=== PATIENT | female | born 1970 | race Caucasian/White ===

== ENCOUNTER 2025-02-05 18:33 | Inpatient (IN) | payer MEDICARE, MEDICAID, SELFPAY ==
--- NOTE | 2025-02-05 18:54 | ECG_ITS ---
Test Reason : med clearance Blood Pressure : */* mmHG Vent. Rate : 61 BPM Atrial Rate : 61 BPM P-R Int : 142 ms QRS Dur : 94 ms QT Int : 444 ms P-R-T Axes : 59 46 38 degrees QTcB Int : 446 ms Normal sinus rhythm Nonspecific ST abnormality Abnormal ECG No previous ECGs available Referred By: Magdalena Bowens Electronically Signed By: Jaiden Guaman
[2025-02-05 18:57] VITALS: BP 175/102; BMI 21.8
--- NOTE | 2025-02-05 19:09 | ED.PSYCH ---
HPI - Psych General Chief Complaint: Psychiatric Symptoms Stated Complaint: SI Time Seen by Provider: 02/05/25 19:07 History of Present Illness ED Provider: Ridge Clayton MD HPI Narrative: 54-year-old female she reports to me history of major depression, remote suicide attempt with morphine overdose intentional about 20 years ago, rheumatoid arthritis, immune deficiency. She said she drank alcohol today and she thinks her ?cousins called because they thought they were helping me ?. Denies suicidal thoughts now. Triage note reports the patient came in as a section 12 [address] by PD. She had drank alcohol. It was reported by family members that the patient plan to ?consumed bottles of morphine ?and ?jump off a jay ?. Related Data Home Medications ?Medication ?Instructions ?Recorded ?Confirmed cyclobenzaprine 5 mg tablet 5 mg PO BEDTIME 02/06/25 02/06/25 dextroamphetamine-amphetamine 30 1 tab PO BID 02/06/25 02/06/25 mg tablet gabapentin 300 mg capsule 300 mg PO BID 02/06/25 02/06/25 hydroxychloroquine 200 mg tablet 200 mg PO DAILY 02/06/25 02/06/25 loperamide 2 mg capsule 2 mg PO PRN Diarrhea 02/06/25 lumateperone 42 mg capsule 21 mg PO DAILY 02/06/25 02/06/25 (Caplyta) rizatriptan 10 mg tablet 10 mg PO PRN Migraine Headache 02/06/25 vilazodone 20 mg tablet 20 mg PO DAILY 02/06/25 02/06/25 Allergies Allergy/AdvReac Type Severity Reaction Status Date / Time bee pollen (BEE STINGS) Allergy Unknown UNKNOWN Verified 02/05/25 18:58 penicillin V Allergy Unknown hives Verified 02/05/25 18:58 Penicillins (PENICILLINS) Allergy Unknown UNKNOWN Verified 02/05/25 18:58 BEES Allergy Unknown Unknown Uncoded 02/05/25 18:58 Wellbutrin Allergy Unknown Unknown Uncoded 02/05/25 18:58 PMF Social History Social History (System 05/26/23 @ 11:43 by Rocio Aguillon) Household Members: None Housing: House Patient Tobacco Use Status: Current everyday Tobacco user Tobacco use type: Cigarette Cigarette Packs Per Day: 1 Cigarettes Per Day: 20.0 Smoked in Last 30 Days: Yes e-Cigarette/Vaping Use: Never Used Patient Interested in Nicotine Replacement: Yes Patient Given Instructions on How to Stop Smoking: Yes Date Education Initiated: 02/06/25 Second Hand Smoke Exposure: Yes Have you been hit, kicked, punched, or otherwise hurt by someone within the past year? If so, by whom?: No Do you feel safe in your current relationship?: No Is there a partner from a previous relationship who is making you feel unsafe now?: No Are you made to feel afraid or neglected: No Advance Directives: No Advance Directives Information Provided: No Do you have a plan to hurt others: No Plan Recently lost weight without trying: Yes How much weight loss: 2-13 pounds Eating poorly because of decreased appetite: Yes Nutrition screen score: 4 Nutrition Risks: Dental problems and Difficulty chewing Patient : No : No Poor oral hygiene: No Physical Exam Vital Signs: Vital Signs: Last Vital Signs Temp 96.5 F L 02/06/25 11:50 Pulse 68 02/06/25 11:50 Resp 20 02/06/25 11:50 BP 134/70 02/06/25 11:50 Pulse Ox 100 02/06/25 11:50 O2 Del Method Room Air 02/06/25 11:50 BMI result Body Mass Index 21.8 Const: Other: EXAM: Gen: Alert, awake, well appearing, well hydrated. Head: Atraumatic Eyes: Anicteric, Normal conjunctiva. ENT: Moist mucosa, no pallor. ? Neck: Supple. Skin: ?No observable rash or bruising on exposed or examined skin Respiratory: Breathing comfortably, No distress.Clear to auscultation bilaterally, symmetric chest expansion, No wheeze, rales, ronchi. Cardiovascular: Regular rate and rhythm. No murmurs or rub. Well perfused periphery, warm extremities. No edema. ? Abdominal: No focal tenderness. Soft, no objective distension. No palpable masses or obvious organomegaly. ?No guarding, no rebound tenderness or other peritoneal findings. : No flank tenderness. Neuro: Alert. Gross movement of all extremities intact. ? Psych: Calm. Cooperative. Denies SI to me. Acknowledges drinking alcohol today. Acknowledges a remote suicide attempt. Says she wants to go home with to her dog that she lives with and just go to sleep she has no plans to hurt herself at this time. MSK: No grossly visible deformity. Vital signs: See flowsheet Neuro: General: CN's II-XI intact bilaterally Course Reevaluation(s) Reevaluation #1: 21:24 February 05. Staff noted that the patient Reevaluation #2: Time: 09:14 Date: 02/06/25 Provider: Mohinder Mcclellan MD Patient in physician observation for psychiatric evaluation.? No acute events reported overnight. No current complaints. VS stable.? Patient is in bed search status/pending CARE team evaluation. Will continue to monitor. Time: 09:14 Reevaluation #3: 02/06/2025 11:48 patient will be admitted to the psych unit at [facility] this will end the physician observation status Time: 11:48 Medications Administered Generic Name Dose Route Start Last Admin Trade Name Freq PRN Reason Stop Dose Admin Acetaminophen 650 mg 02/06/25 11:55 02/06/25 14:02 Acetaminophen 325 Mg Tablet PO 650 mg Q6H PRN Administration Headache/Pain, Scale 1-10 Amphetamine/Dextroamphetamine 30 mg 02/06/25 14:15 02/06/25 14:15 Amphetamine Mixed Salts 10 Mg Tablet PO Not Given BID VARGAS Lorazepam 1 mg 02/06/25 11:55 02/06/25 14:03 Lorazepam 1 Mg Tablet PO 1 mg Q2H PRN Administration CIWA 8-11 Nicotine Polacrilex 2 mg 02/06/25 14:14 02/06/25 15:07 Nicotine Polacrilex Lozenge 2 Mg Lozenge BUCCAL 2 mg Q1H PRN Administration Nicotine Cravings Discontinued Medications Generic Name Dose Route Start Last Admin Trade Name Freq PRN Reason Stop Dose Admin Lorazepam 1 mg 02/05/25 18:54 02/05/25 19:17 Lorazepam 1 Mg Tablet PO 02/05/25 18:55 1 mg ONCE ONE Administration Midazolam HCl 5 mg 02/05/25 21:22 02/05/25 21:32 Midazolam Hcl 5 Mg/Ml Vial IM 02/05/25 21:23 5 mg ONCE ONE Administration Olanzapine 5 mg 02/05/25 21:22 02/05/25 21:33 Olanzapine 10 Mg Vial IM 02/05/25 21:23 5 mg ONCE ONE Administration Medical Decision Making Medical Decision Making MDM Narrative: Medical Decision Makin-year-old female brought in after verbalizing suicidal ideation while intoxicated. Section 12 by police. Patient has had a suicide attempt in the past and upon learning corroborating historical factors from family member who was present patient wrote a serious suicide note at home. For this reason section 12 continued here 12 a signed. No acute medical complaints. She is perhaps mildly intoxicated but initially was cooperative later began verbally escalating and arguing with staff. I wrote prn sedation medications if she needed this if she became physical with staff members but I was told by the end of my shift she did not require this. Preliminary Favored Differential Diagnosis: Drug-induced or alcohol-induced suicidal ideation or mood disorder, chronic depression, psychotic disorder, among additional considered etiologies Testing Interpreted Independently: ECG sinus rhythm rate 61 QTC 446. [place] baseline in lead 1 and 3 artifact. No acute ischemic changes. Radiology or Lab testing Results Reviewed: Labs reassuring non actionable Consults: Behavioral health care team social services technician. We discussed the case together. Independent Historians/External Chart Reviews: Not Applicable Social Determinants of Health Impacting MDM/Planning: Not Applicable Lab Data 02/05/25 19:32 02/05/25 19:32 Labs: Lab Results 02/05/25 02/05/25 02/05/25 Range/Units 19:32 19:46 19:47 WBC 4.9 (4.8-10.8) X10*3/uL RBC 4.60 (4.20-5.50) X10*6/uL Hgb 13.5 (12.0-16.0) g/dl Hct 39.1 (37.0-47.0) % MCV 85.0 (80.0-98.0) fL MCH 29.3 (27.0-33.0) pg MCHC 34.5 (31.0-35.0) g/dl RDW 11.9 (11.0-16.0) % Plt Count 237 (160-400) X10*3/uL MPV 9.6 (9.4-12.3) fL Immature Gran % (Auto) 0.2 (0.0-0.4) % Neut % (Auto) 49.0 (45-73) % Lymph % (Auto) 42.1 H (20-40) % [place] % (Auto) 6.0 (2-11) % Eos % (Auto) 1.9 (0-4) % Baso % (Auto) 0.8 (0-2) % Lymph # (Auto) 2.0 (1.2-4.9) X10*3/uL [place] # (Auto) 0.3 (0.1-1.2) X10*3/uL Eos # (Auto) 0.1 (0.0-0.4) X10*3/uL Baso # (Auto) 0.0 (0.0-0.2) X10*3/uL Abs Immat Gran (auto) 0.01 (0.00-0.03) X10*3/uL Absolute Neuts (auto) 2.4 (2.0-8.3) x10*3/uL Absolute Nucleated RBC 0.000 (0.0-0.012) X10*3/uL Nucleated RBC % (auto) 0.0 (0.0-0.2) /100WBC Sodium 141 (135-145) mmol/L Potassium 3.9 (3.3-5.1) mmol/L Chloride 108 (96-108) mmol/L Carbon Dioxide 21 L (22-29) mmol/L Anion Gap 16 (12-20) BUN 11 (9-16) mg/dL Creatinine 0.67 (0.5-1.4) mg/dL Estim Creat Clear Calc 88.7 Estimated GFR > 60 Random Glucose 86 (60-115) mg/dL Calcium 8.8 (8.4-10.2) mg/dL Total Bilirubin 0.2 (0.0-1.0) mg/dL AST 31 (5-31) U/L ALT 34 H (0-31) U/L Alkaline Phosphatase 109 (39-117) U/L Total Protein 7.4 (6.5-8.0) g/dL Albumin 4.4 (3.5-5.0) g/dL Urine Color Yellow Urine Appearance Clear Urine pH 6.5 (5.0-9.0) Ur Specific [place] <= 1.005 (1.005-1.025) Urine Protein Negative (Neg-Trace) mg/dL Urine Glucose (UA) Negative (Negative) mg/dL Urine Ketones Negative (Negative) mg/dL Urine Blood Negative (Negative) Urine Nitrite Negative (Negative) Ur Leukocyte Esterase Moderate (2+) H (Negative) Urine RBC 0-2 (0-2) /HPF Urine WBC 0-5 (0-5) /HPF Ur Squamous Epith Cells 0-2 (0-2) /HPF Urine Bacteria None Seen (None Seen) Hyaline Casts 0-2 (0-2) /LPF Urine Test NEGATIVE (NEGATIVE) Salicylates < 5.0 L (15-30) mg/dL Urine Opiates Screen Not Detected (Not Detect) Ur Buprenorphine Scrn Not Detected (Not Detect) ng/mL Ur Oxycodone Screen Not Detected (Not Detect) ng/mL Urine Methadone Screen Not Detected (Not Detect) ng/mL Urine Fentanyl Screen Not Detected (Not Detect) Acetaminophen < 3 (<30) mcg/mL Ur Barbiturates Screen Not Detected (Not Detect) Ur Phencyclidine Scrn Not Detected (Not Detect) Ur Amphetamines Screen Not Detected (Not Detect) U Benzodiazepines Scrn Not Detected (Not Detect) Urine Cocaine Screen Not Detected (Not Detect) U Marijuana (THC) Screen POSITIVE H (Not Detect) Ethyl Alcohol 135 mg/dL COVID-19 (MELE) Negative (Negative) COVID-19 Clin Com See Note Discharge Plan Discharge Clinical Impression: Suicidal ideation Patient Disposition: Admitted As Inpatient Interventions: [place]-Suicide Risk Severity Scale Last Done: 02/06/25 11:45 Discharge Date/Time: 02/06/25 11:49
[2025-02-05 19:40] LABS: MANUAL DIFF FLAG NO
[2025-02-05 19:42] LABS: Hematocrit 39.1 % (37.0-47.0); Hemoglobin 13.5 g/dl (12.0-16.0); Imm Gran Abs Auto 0.01 X10*3/uL (0.00-0.03); Imm Gran Pct Auto 0.2 % (0.0-0.4); Lymphocytes Absolute Auto 2.0 X10*3/uL (1.2-4.9); Mean Corpuscular HGB Conc 34.5 g/dl (31.0-35.0); Mean Corpuscular Hemoglobin 29.3 pg (27.0-33.0); Mean Corpuscular Volume 85.0 fL (80.0-98.0); NRBC Abs Auto 0.000 X10*3/uL (0.0-0.012); NRBC Pct Auto 0.0 /100WBC (0.0-0.2); Platelet Count 237 X10*3/uL (160-400); Red Blood Count 4.60 X10*6/uL (4.20-5.50); White Blood Count 4.9 X10*3/uL (4.8-10.8)
[2025-02-05 19:57] LABS: COVID-19 Test Negative (Negative); IDNOW Serial# 55D5AD1C
[2025-02-05 19:58] LABS: UPreg QC Valid YES
[2025-02-05 19:58] LABS: Appearance Urine Clear; Glucose Urine UA Negative (Negative); PH 6.5 (5.0-9.0); Specific Gravity - Urine <= 1.005 (1.005-1.025); UMIC TRIGGER UA YES
[2025-02-05 20:03] LABS: Alanine Aminotransferase 34 U/L (0-31); Albumin Level 4.4 g/dL (3.5-5.0); Alkaline Phosphatase 109 U/L (39-117); Anion Gap 16 (12-20); Aspartate Amino Transferase 31 U/L (5-31); Blood Urea Nitrogen 11 mg/dL (9-16); Calcium 8.8 mg/dL (8.4-10.2); Carbon Dioxide 21 mmol/L (22-29); Chloride 108 mmol/L (96-108); Creatinine Clr Calc Pharmacy 88.7; Estimated Glomerular Filt Rate > 60; Potassium 3.9 mmol/L (3.3-5.1); Sodium 141 mmol/L (135-145); Total Protein 7.4 g/dL (6.5-8.0)
[2025-02-05 20:05] LABS: Acetaminophen LAB < 3 mcg/mL (<30); Salicylate < 5.0 mg/dL (15-30)
[2025-02-05 20:06] LABS: Cannabinoid Screen Urine POSITIVE (Not Detect)
[2025-02-05] MEDS: OLANZapine 10 MG VIAL 5 MG IM (21:33)
--- NOTE | 2025-02-05 23:35 | PC.NURSE ---
Took over care from MARGO Flores, pt sleeping at this time.
--- NOTE | 2025-02-05 23:36 | PC.NURSE ---
unable to complete [place] scale and psychiatric evaluation at this time due to pt sleeping.
[2025-02-06 03:09] VITALS: BP 94/65; PULSE 66; RESP 13; TEMP 36.6; O2SAT 95
[2025-02-06 08:34] VITALS: BP 149/99; PULSE 97; RESP 18; TEMP 36.6; O2SAT 97
--- NOTE | 2025-02-06 08:35 | MHC.EDTECH ---
Patient upset due to being here, she said she has medical issues that need to be addressed and no one would listen to her
--- NOTE | 2025-02-06 10:39 | PC.NURSE ---
Pt approached desk stating is anyone going to help me or am I just going to sit here. RN offered pt supplies to perform ADLs, offered to call her pharmacy to verify meds. pt got agitated, stating she wants her own toothbrush and her dog, stating what am I supposed to wash myself with, my magic hands? I can't use that soap, I have autoimmune problems and walked away from desk.
--- NOTE | 2025-02-06 11:18 | PC.NURSE ---
Nursing report to Alvin on M3
[2025-02-06 11:50] VITALS: BP 134/70; PULSE 68; RESP 20; TEMP 35.8; O2SAT 100
[2025-02-06 11:58] VITALS: BMI 21.7
--- NOTE | 2025-02-06 12:09 | HO.PSYADMNOT ---
[facility] Date of Service: 02/06/25 Chief Complaint: SI Sources of Information: patient interviewed, chart reviewed and crisis/core team assessment reviewed HPI Subjective Notes: [place] Warning and Section 12B Narrative: Patient is a 54-year-old female with history of MDD, PTSD and ADHD who was brought in via ambulance from home on a section 12 due to making suicidal statements secondary to increased depression while being intoxicated. Per crisis report, patient reportedly left a suicide note on her table. The note reportedly stated, the patient is endorsing suicidal thoughts with a plan to drink alcohol, consumed bottles of morphine, or jump off a jay. Patient adamantly denied SI/plan/or intent and states, that was a journal from years ago from when I tried to kill myself with morphine . Patient reports that 20 years ago, attempted to kill myself with morphine . Patient reportedly drank alcohol, which she typically does not do and destroyed her garden and ripped down decorations off her thomas. patient reports she has been depressed and stated, I'm very alone, my mom not too long ago. I just had a bad day and I want to go home . Patient reports her mood is very sad but not suicidal . Patient adamantly denies SI/HI throughout assessment. Collateral obtained from pt's cousin, Alvin, who reports patient has been increasingly depressed over the last week. He reports, pt does not usually drink and was out of character for her . He reports pt made statements of dancing off a jay and stating, I can't fight anymore, I am done with life . During admission assessment, patient presents alert and oriented x3. Calm and cooperative. Patient reports feeling depressed; patient stated, I'm having a hard time with my mom passing a month ago. I was calling my outpatient therapist trying to get additional help but no one called me back. I may have said stupid things because I was drinking but I'm not suicidal . Patient requesting discharged home. Patient denies writing a suicide note. Patient stated, I was taking out journals because my psychiatrist said I should try EMDR therapy. I was going through old journals and old traumas. I felt frustrated and sad so I destroyed my garden and ripped down the decorations . pt continues to adamantly deny SI, plan or intent. patient stated, I'm hoping that I won't feel this way a week from now or a month from now . denies SI/HI/VH/AH. Collateral obtained from outpatient psychiatrist, Dr. Morales, who reports he recently saw pt a month ago and has an appointment set up with her next week. He states he does not feel she is high risk for self harm and plans to follow up with her after discharge. Collateral also obtained from patient's cousin, Alvin, who reports patient lives with him and his . He reports patient does not have a hx of SIB or making suicidal statements. Past Psychiatric History: denies hx of inpatient psychiatric hospitalizations. denies SIB. hx of 1 prior SA 20 years ago via OD on medication. Psychiatrist: Dr. Morales Therapist: Yoly Medical Evaluation Reviewed: Yes [facility] Family History: Denies Social History: Lives with an in a 2 family home. . No kids. Disability. Some college. Substance History: Marijuana use daily. Denies all other substance use. Trauma History: Yes Diagnostics Vital Signs (24Hr): Vital Signs - 24 hr 02/06/25 03:09 02/06/25 08:34 02/06/25 11:50 Temperature 97.8 F 97.8 F 96.5 F L Pulse Rate 66 97 68 Respiratory Rate 13 18 20 Blood Pressure 94/65 149/99 H 134/70 Pulse Oximetry 95 97 100 Oxygen Delivery Method Room Air Room Air Room Air BMI result Body Mass Index 21.7 Labs 02/05/25 19:32 02/05/25 19:32 Labs: Laboratory Results - last 48 hr 02/05/25 02/05/25 02/05/25 19:32 19:46 19:47 WBC 4.9 RBC 4.60 Hgb 13.5 Hct 39.1 MCV 85.0 MCH 29.3 MCHC 34.5 RDW 11.9 Plt Count 237 MPV 9.6 Immature Gran % (Auto) 0.2 Neut % (Auto) 49.0 Lymph % (Auto) 42.1 H [place] % (Auto) 6.0 Eos % (Auto) 1.9 Baso % (Auto) 0.8 Lymph # (Auto) 2.0 [place] # (Auto) 0.3 Eos # (Auto) 0.1 Baso # (Auto) 0.0 Abs Immat Gran (auto) 0.01 Absolute Neuts (auto) 2.4 Absolute Nucleated RBC 0.000 Nucleated RBC % (auto) 0.0 Sodium 141 Potassium 3.9 Chloride 108 Carbon Dioxide 21 L Anion Gap 16 BUN 11 Creatinine 0.67 Estim Creat Clear Calc 88.7 Estimated GFR > 60 Random Glucose 86 Calcium 8.8 Total Bilirubin 0.2 AST 31 ALT 34 H Alkaline Phosphatase 109 Total Protein 7.4 Albumin 4.4 Urine Color Yellow Urine Appearance Clear Urine pH 6.5 Ur Specific [place] <= 1.005 Urine Protein Negative Urine Glucose (UA) Negative Urine Ketones Negative Urine Blood Negative Urine Nitrite Negative Ur Leukocyte Esterase Moderate (2+) H Urine RBC 0-2 Urine WBC 0-5 Ur Squamous Epith Cells 0-2 Urine Bacteria None Seen Hyaline Casts 0-2 Urine Test NEGATIVE Salicylates < 5.0 L Urine Opiates Screen Not Detected Ur Buprenorphine Scrn Not Detected Ur Oxycodone Screen Not Detected Urine Methadone Screen Not Detected Urine Fentanyl Screen Not Detected Acetaminophen < 3 Ur Barbiturates Screen Not Detected Ur Phencyclidine Scrn Not Detected Ur Amphetamines Screen Not Detected U Benzodiazepines Scrn Not Detected Urine Cocaine Screen Not Detected U Marijuana (THC) Screen POSITIVE H Ethyl Alcohol 135 COVID-19 (MELE) Negative COVID-19 Clin Com See Note Meds/Allergies Meds Home Medications ?Medication ?Instructions ?Recorded ?Confirmed ?Type cyclobenzaprine 5 mg tablet 5 mg PO BEDTIME 02/06/25 02/06/25 History dextroamphetamine-amphetamine 30 1 tab PO BID 02/06/25 02/06/25 History mg tablet gabapentin 300 mg capsule 300 mg PO BID 02/06/25 02/06/25 History hydroxychloroquine 200 mg tablet 200 mg PO DAILY 02/06/25 02/06/25 History loperamide 2 mg capsule 2 mg PO PRN Diarrhea 02/06/25 History lumateperone 42 mg capsule 21 mg PO DAILY 02/06/25 02/06/25 History (Caplyta) rizatriptan 10 mg tablet 10 mg PO PRN Migraine Headache 02/06/25 History vilazodone 20 mg tablet 20 mg PO DAILY 02/06/25 02/06/25 History Allergies Allergies Allergy/AdvReac Type Severity Reaction Status Date / Time bee pollen (BEE STINGS) Allergy Unknown UNKNOWN Verified 02/05/25 18:58 penicillin V Allergy Unknown hives Verified 02/05/25 18:58 Penicillins (PENICILLINS) Allergy Unknown UNKNOWN Verified 02/05/25 18:58 BEES Allergy Unknown Unknown Uncoded 02/05/25 18:58 Wellbutrin Allergy Unknown Unknown Uncoded 02/05/25 18:58 Mental Status Exam Mental Status Exam Narrative: Pt is alert and oriented; behavior is cooperative and calm; dressed in casual attire; mood is described as depressed ; eye contact appropriate; Speech is normal rate, volume and not pressured; thought process is organized; Thought content is on discharge; denies SI/HI/VH/AH. Assessment & Plan Assessment & Plan (1) MDD (major depressive disorder), recurrent episode: Status: Acute Code(s): F33.9 - Major depressive disorder, recurrent, unspecified (2) PTSD (post-traumatic stress disorder): Status: Acute Code(s): F43.10 - Post-traumatic stress disorder, unspecified (3) ADHD (attention deficit hyperactivity disorder): Status: Acute Code(s): F90.9 - Attention-deficit hyperactivity disorder, unspecified type Plan Patient is a 54-year-old female with history of MDD, PTSD and ADHD who was brought in via ambulance from home on a section 12 due to making suicidal statements secondary to increased depression while being intoxicated. Plan: 12B 15 minute safety checks Continue home medications obtain collateral encourage groups discharge planning Patient educated on: diagnosis and medication risk/benefits Reason for continued inpatient stay Substantial Risk for: med/psych decompensation Statement Statement: I have reviewed the history and physical and performed a pertinent examination on my patient. No changes have occurred unless specified. If the History and Physical was not performed prior to admission, the Hospitalist's service will be consulted for completing the admission physical. Time Spent With Patient Time: Total time managing care of this patient today _60___ minutes.
[2025-02-06] MEDS: Nicotine Polacrilex Lozenge 2 MG LOZENGE BUCCAL ×2 (15:07→17:45)
--- NOTE | 2025-02-06 16:46 | PC.ADMIT ---
This 54 y.o. woman was referred by [facility] Care Team with Dx: Depression, unspecified. Arrived on unit on a Section 12A at 1215 and placed on 15 min safety checks. Precipitating events to admission: Brought in to [facility] by ambulance on a Section 12 due to SI statements and leaving a reported suicide note on table at home which was found by cousin who resides with her. Endorsed plan in note to drink alcohol, consume bottles of morphine and walk off a jay. Prior SA with use of Morphine 20 yrs ago. Denied SI while in ED. Increase in agitation noted while in ED requiring medication restraint Versed/Olanzapine IM after receiving Ativan po previously. Tox screen positive for marijuana, etoh 135 at 1932 02/05/25. Reports use of edible marijuana nightly, recent use of etoh. Denies craving substances or s/sx withdrawal. CIWA 8 at 1400, Ativan 1mg po given which allowed pt to rest in bed. CIWA 5 on following assessment. Agitation noted during admission process. Stated she did not know why she was here and we were causing her more harm then good. Stated she had not received her meds, had not been eating, and was not able to attend properly to hygiene while in ED. Declined shower/toothpaste/toothbrush offered stating she did not want to shower here or utilize hospital products. Completed admission process stating she wanted to do whatever we wanted so she would be able to leave soon. Calmed after meeting with prescriber, Rima Chinchilla. Declined CV, legal status at present time Section 12B. Continues to deny SI, denies HI, AH/VH. Rated anxiety #10 on admission, stated depression had decreased since yesterday rating #5 on scale 1-10(10 worse) on admission.
[2025-02-06 20:00] VITALS: BP 119/61; PULSE 70; RESP 16; TEMP 35.6; O2SAT 99
--- NOTE | 2025-02-06 23:13 | PC.NURSE ---
patient is refusing to have CIWA assessments at night ''do not wake me, if I'm up then fine. I had a drink that's it''
--- NOTE | 2025-02-07 00:06 | PC.NURSE ---
CIWA-patient is asleep and refused earlier to be woken for assessment. visualized. no distress noted. respirations even and unlabored. no diaphoresis assessed.
[2025-02-07 07:24] VITALS: BP 115/66; PULSE 67; RESP 18; TEMP 36.1; O2SAT 98
[2025-02-07] MEDS: Amphetamine Mixed Salts 10 MG TABLET 30 MG PO (08:16)
[2025-02-07 08:20] LABS: Hemoglobin A1C 138.3255 umol/L; Total Hemoglobin (HGBA1C) 3647.9173 umol/L
[2025-02-07] MEDS: Nicotine Polacrilex Lozenge 2 MG LOZENGE BUCCAL ×3 (08:21→11:06)
[2025-02-07 08:22] LABS: Alanine Aminotransferase 30 U/L (0-31); Albumin Level 4.4 g/dL (3.5-5.0); Alkaline Phosphatase 113 U/L (39-117); Anion Gap 10 (12-20); Aspartate Amino Transferase 28 U/L (5-31); Blood Urea Nitrogen 13 mg/dL (9-16); Calcium 9.3 mg/dL (8.4-10.2); Carbon Dioxide 29 mmol/L (22-29); Chloride 105 mmol/L (96-108); Cholesterol 203 mg/dL (<200); Creatinine Clr Calc Pharmacy 79.3; Estimated Glomerular Filt Rate > 60; HDL Cholesterol 63 mg/dL (>40); Potassium 3.7 mmol/L (3.3-5.1); Sodium 140 mmol/L (135-145); Total Protein 7.3 g/dL (6.5-8.0); Triglycerides 94 mg/dL (<150)
--- NOTE | 2025-02-07 09:52 | PM.PSYDC ---
DS: Providers Provider Date of Service: 02/07/25 Date of admission: 02/06/25 10:06 Date of discharge: 02/07/25 Primary care physician: Unknown Physician Admitting clinician: Rima Chinchilla Attending physician on admission: Niels Hayes Attending physician on discharge: Niels Hayes Discharging clinician: Rima Chinchilla DS: Diagnosis Discharge Diagnosis (1) MDD (major depressive disorder), recurrent episode: Status: Acute (2) PTSD (post-traumatic stress disorder): Status: Acute (3) ADHD (attention deficit hyperactivity disorder): Status: Acute DS: Medications Discharge Medications Home Medications: Home Medications ?Medication ?Instructions ?Recorded ?Confirmed cyclobenzaprine 5 mg tablet 5 mg PO BEDTIME 02/06/25 02/06/25 dextroamphetamine-amphetamine 30 1 tab PO BID 02/06/25 02/06/25 mg tablet gabapentin 300 mg capsule 300 mg PO BID 02/06/25 02/06/25 hydroxychloroquine 200 mg tablet 200 mg PO DAILY 02/06/25 02/06/25 loperamide 2 mg capsule 2 mg PO PRN Diarrhea 02/06/25 lumateperone 42 mg capsule 21 mg PO DAILY 02/06/25 02/06/25 (Caplyta) rizatriptan 10 mg tablet 10 mg PO PRN Migraine Headache 02/06/25 vilazodone 20 mg tablet 20 mg PO DAILY 02/06/25 02/06/25 Mental Status Exam Mental Status Exam Narrative: Pt is alert and oriented; behavior is cooperative, friendly and calm; dressed in casual attire; mood is described as good ; eye contact appropriate; Speech is normal rate, volume and not pressured; thought process is organized and future oriented; Thought content is on tx; denies SI/HI/VH/AH. Data Data Completed and Pending Completed studies during hospitalization [Text1]: 02/05/25 02/05/25 02/05/25 19:32 19:46 19:47 WBC 4.9 RBC 4.60 Hgb 13.5 Hct 39.1 MCV 85.0 MCH 29.3 MCHC 34.5 RDW 11.9 Plt Count 237 MPV 9.6 Immature Gran % (Auto) 0.2 Neut % (Auto) 49.0 Lymph % (Auto) 42.1 H Wise % (Auto) 6.0 Eos % (Auto) 1.9 Baso % (Auto) 0.8 Lymph # (Auto) 2.0 Wise # (Auto) 0.3 Eos # (Auto) 0.1 Baso # (Auto) 0.0 Abs Immat Gran (auto) 0.01 Absolute Neuts (auto) 2.4 Absolute Nucleated RBC 0.000 Nucleated RBC % (auto) 0.0 Sodium 141 Potassium 3.9 Chloride 108 Carbon Dioxide 21 L Anion Gap 16 BUN 11 Creatinine 0.67 Estim Creat Clear Calc 88.7 Estimated GFR > 60 Random Glucose 86 Estimat Average Glucose Hemoglobin A1c % Calcium 8.8 Total Bilirubin 0.2 AST 31 ALT 34 H Alkaline Phosphatase 109 Total Protein 7.4 Albumin 4.4 Triglycerides Cholesterol LDL Cholesterol, Calc HDL Cholesterol Urine Color Yellow Urine Appearance Clear Urine pH 6.5 Ur Specific Newcomb <= 1.005 Urine Protein Negative Urine Glucose (UA) Negative Urine Ketones Negative Urine Blood Negative Urine Nitrite Negative Ur Leukocyte Esterase Moderate (2+) H Urine RBC 0-2 Urine WBC 0-5 Ur Squamous Epith Cells 0-2 Urine Bacteria None Seen Hyaline Casts 0-2 Urine Test NEGATIVE Salicylates < 5.0 L Urine Opiates Screen Not Detected Ur Buprenorphine Scrn Not Detected Ur Oxycodone Screen Not Detected Urine Methadone Screen Not Detected Urine Fentanyl Screen Not Detected Acetaminophen < 3 Ur Barbiturates Screen Not Detected Ur Phencyclidine Scrn Not Detected Ur Amphetamines Screen Not Detected U Benzodiazepines Scrn Not Detected Urine Cocaine Screen Not Detected U Marijuana (THC) Screen POSITIVE H Ethyl Alcohol 135 COVID-19 ([facility]) Negative COVID-19 Clin Com See Note 02/07/25 07:54 WBC RBC Hgb Hct MCV MCH MCHC RDW Plt Count MPV Immature Gran % (Auto) Neut % (Auto) Lymph % (Auto) Wise % (Auto) Eos % (Auto) Baso % (Auto) Lymph # (Auto) Wise # (Auto) Eos # (Auto) Baso # (Auto) Abs Immat Gran (auto) Absolute Neuts (auto) Absolute Nucleated RBC Nucleated RBC % (auto) Sodium 140 Potassium 3.7 Chloride 105 Carbon Dioxide 29 Anion Gap 10 L BUN 13 Creatinine 0.75 Estim Creat Clear Calc 79.3 Estimated GFR > 60 Random Glucose 98 Estimat Average Glucose 114 Hemoglobin A1c % 5.6 Calcium 9.3 Total Bilirubin 0.3 AST 28 ALT 30 Alkaline Phosphatase 113 Total Protein 7.3 Albumin 4.4 Triglycerides 94 Cholesterol 203 H LDL Cholesterol, Calc 122 H HDL Cholesterol 63 Urine Color Urine Appearance Urine pH Ur Specific Newcomb Urine Protein Urine Glucose (UA) Urine Ketones Urine Blood Urine Nitrite Ur Leukocyte Esterase Urine RBC Urine WBC Ur Squamous Epith Cells Urine Bacteria Hyaline Casts Urine Test Salicylates Urine Opiates Screen Ur Buprenorphine Scrn Ur Oxycodone Screen Urine Methadone Screen Urine Fentanyl Screen Acetaminophen Ur Barbiturates Screen Ur Phencyclidine Scrn Ur Amphetamines Screen U Benzodiazepines Scrn Urine Cocaine Screen U Marijuana (THC) Screen Ethyl Alcohol COVID-19 ([facility]) COVID-19 Clin Com DS: Summary Hospital Course Hospital Course: Patient is a 54-year-old female with history of MDD, PTSD and ADHD who was brought in via ambulance from home on a [address] due to making suicidal statements secondary to increased depression while being intoxicated. Per crisis report, patient reportedly left a suicide note on her table. The note reportedly stated, the patient is endorsing suicidal thoughts with a plan to drink alcohol, consumed bottles of morphine, or jump off a jay. Patient adamantly denied SI/plan/or intent and states, that was a journal from years ago from when I tried to kill myself with morphine . Patient reports that 20 years ago, attempted to kill myself with morphine . Patient reportedly drank alcohol, which she typically does not do and destroyed her garden and ripped down decorations off her thomas. patient reports she has been depressed and stated, I'm very alone, my mom not too long ago. I just had a bad day and I want to go home . Patient reports her mood is very sad but not suicidal . Patient adamantly denies SI/HI throughout assessment. Collateral obtained from pt's cousin, Alvin, who reports patient has been increasingly depressed over the last week. He reports, pt does not usually drink and was out of character for her . He reports pt made statements of dancing off a jay and stating, I can't fight anymore, I am done with life . During admission assessment, patient presents alert and oriented x3. Calm and cooperative. Patient reports feeling depressed; patient stated, I'm having a hard time with my mom passing a month ago. I was calling my outpatient therapist trying to get additional help but no one called me back. I may have said stupid things because I was drinking but I'm not suicidal . Patient requesting discharged home. Patient denies writing a suicide note. Patient stated, I was taking out journals because my psychiatrist said I should try EMDR therapy. I was going through old journals and old traumas. I felt frustrated and sad so I destroyed my garden and ripped down the decorations . pt continues to adamantly deny SI, plan or intent. patient stated, I'm hoping that I won't feel this way a week from now or a month from now . denies SI/HI/VH/AH. Collateral obtained from outpatient psychiatrist, Dr. Morales, who reports he recently saw pt a month ago and has an appointment set up with her next week. He states he does not feel she is high risk for self harm and plans to follow up with her after discharge. Collateral also obtained from patient's cousin, Alvin, who reports patient lives with him and his . He reports patient does not have a hx of SIB or making suicidal statements. Plan: 12B 15 minute safety checks Continue home medications obtain collateral encourage groups discharge planning Patient continues focused on discharge. patient future oriented and hopeful; pt stated, I made a stupid mistake getting drunk. I plan on seeing my psychiatrist next week and continuing to see my therapist. I want to get in touch with a program in [place] that focuses on trauma . Patient adamately denies SI/HI/VH/AH. Status at Discharge Cognitive/behavioral status at discharge: Patient has insight and demonstrates good judgment in terms of wanting to pursue treatment. Patient has a safety plan that includes presenting to the closest ER or calling 911 if feeling unsafe. Functional status at discharge: independent ambulation Overall status at discharge: patient is back to baseline Time Spent with Patient Time attestation: Total time managing care of this patient today _20___ minutes. Time spent: Less than 30 minutes Discharge Plan Discharge Anticipated Discharge Date/Time: 02/07/25 12:00 Patient Disposition: Home, Self-Care Discharge Diagnosis: MDD, PTSD, ADHD Referrals: Dr. Moctezuma ([facility]) [Other] - 1 Week Referral Note: Follow up with outpatient provider. [facility] [Provider Group] - 1 Week Discharge Medications: Continued gabapentin 300 mg capsule 300 mg PO BID loperamide 2 mg capsule 2 mg PO PRN (Reason: Diarrhea) rizatriptan 10 mg tablet 10 mg PO PRN (Reason: Migraine Headache) dextroamphetamine-amphetamine 30 mg tablet 1 tab PO BID Patient Comments: first thing in the morning, second dose 11-12 hydroxychloroquine 200 mg tablet 200 mg PO DAILY cyclobenzaprine 5 mg tablet 5 mg PO BEDTIME vilazodone 20 mg tablet 20 mg PO DAILY Caplyta 42 mg capsule 21 mg PO DAILY Patient Comments: 42mg did not work well, taking 21mg instead Discharge Orders: Discharge Order (Routine); Ordered 02/07/25 Ordered By: Rima Chinchilla Diet: Regular diet Activity on Discharge: As tolerated Stand Alone Forms: Patient Portal Discharge page, Community Support Print Language: Malay Care Plan Goals: Maintain mood and safe behaviors Take medications as prescribed Practice coping skills Continue with outpatient providers and reach out to them as needed Health Concerns: Mood stability and behaviors Plan of Treatment: Follow up with your PCP, psychiatric provider and other outpatient providers regarding above concerns Take medications as prescribed Assessment: Patient has insight and demonstrates good judgment in terms of wanting to pursue treatment. Patient has a safety plan that includes presenting to the closest ER or calling 911 if feeling unsafe. Discharge Date/Time: 02/07/25 11:58
== END 2025-02-07 11:58 | disposition home or self-care (01) | DRG 885 ==
LOC: HO.ED 22:50 → HO.PADLT16 02-06 10:35
PROVIDERS: Physician Assistant Medical; Admitting Provider Registered Nurse; Emergency Provider Emergency Medicine; Responsible Provider Registered Nurse; Visit Provider Psychiatry & Neurology Psychiatry
DX: F33.9 Major depressive disorder, recurrent, unspecified (principal); R45.851 Suicidal ideations; F17.210 Nicotine dependence, cigarettes, uncomplicated; F90.9 Attention-deficit hyperactivity disorder, unspecified type; F43.10 Post-traumatic stress disorder, unspecified; Z71.6 Tobacco abuse counseling; Y90.6 Blood alcohol level of 120-199 mg/100 ml; Z91.51 Personal history of suicidal behavior; Z20.822 Contact with and (suspected) exposure to COVID-19; Z79.899 Other long term (current) drug therapy
CPT/HCPCS: 36415; 80053; 80061; 80143; 80179; 80307; 81001; 81025; 83036; 85025; 87635; 93005; 99285; J2250; J2359; S9485

== ENCOUNTER → 2025-02-05 18:54 | Outpatient (BNV) | payer MEDICARE, MEDICAID, SELFPAY | PROVIDERS: Admitting Provider Registered Nurse; Emergency Provider Emergency Medicine; Responsible Provider Registered Nurse; Visit Provider Internal Medicine Cardiovascular Disease | DX: R94.31 Abnormal electrocardiogram [ECG] [EKG] (principal); Z13.6 Encounter for screening for cardiovascular disorders | CPT/HCPCS: 93010 ==

== ENCOUNTER → 2025-02-06 10:06 | Outpatient (BNV) | payer MEDICARE, MEDICAID, SELFPAY | PROVIDERS: Admitting Provider Registered Nurse; Emergency Provider Emergency Medicine; Responsible Provider Registered Nurse; Visit Provider Registered Nurse | DX: F33.2 Major depressive disorder, recurrent severe without psychotic features (principal); F43.11 Post-traumatic stress disorder, acute; F90.9 Attention-deficit hyperactivity disorder, unspecified type | CPT/HCPCS: 90792; 99238 ==

== ENCOUNTER 2025-04-28 13:46 | Outpatient (AMB) | payer MEDICARE, MEDICAID, SELFPAY ==
--- OUTSIDE RECORDS SUMMARY | 2024-05-21 05:00 | XMS_ITS ---
Author Organization [facility] Address [address] [place] [address] Care Team Providers Care Police Department Secretary Name Role Phone Carmen Bliss Primary Care Provider Migration, Provider Unavailable Unavailable REASON FOR VISIT [facility] [place] Encounters Encounter Location Date Provider Diagnosis [facility] [address] [place] [address] 05/21/2024 Provider Migration Plan Of Treatment No Information Progress Notes * Vannessa THAPA MDOB:[birth year] (54 yo F)Acc No.[id number]:05/21/2024 Patient: Jaylin Vannessa MONET :1970 A ge:53 Y S ex:Female Address:[facility] [address] [facility] [address] Subjective: * Chief Complaints: * E MR-Adama * Medical History: * Surgical History: * Hospitalization/Major Diagno stic Procedure: * Medications: Objective: * Vitals: * Physical Examination: Assessment: Plan: * Treatment: * Procedure Codes: * * Date:
--- OUTSIDE RECORDS SUMMARY | 2024-05-22 05:00 | XMS_ITS ---
Author Organization [facility] Address [address] [place] [address] Care Team Providers Care Yeast Washer Name Role Phone Carmen Bliss Primary Care Provider Migration, Provider Unavailable Unavailable REASON FOR VISIT [facility] [place] Encounter Location Date Provider Diagnosis [facility] [address] [place] [address] 05/22/2024 Provider Migration Plan Of Treatment No Information Progress Notes * Vannessa THAPA MDOB:[birth year] (54 yo F)Acc No.[id number]:05/22/2024 Patient: Jaylin Vannessa MONET :1970 A ge:53 Y S ex:Female Address:[facility] [address] [facility] [address] Subjective: * Chief Complaints: * E MR-Adama * Medical History: * Surgical History: * Hospitalization/Major Diagno stic Procedure: * Medications: Objective: * Vitals: * Physical Examination: Assessment: Plan: * Treatment: * Procedure Codes: * * Date:
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
[2025-04-28 13:54] VITALS: BP 123/70; PULSE 91; RESP 16; TEMP 37.1; O2SAT 96; BMI 21.7
--- OUTSIDE RECORDS SUMMARY | 2025-04-28 14:56 | XMS_ITS | Patient Health Record ---
Author Organization [facility] Address [address] [place] [address] Care Team Providers Care Senior Information Security Consultant Name Role Phone Carmen Bliss Primary Care Provider Migration, Provider Unavailable Unavailable Reason For Referral No Information Encounters Encounter Location Date Provider Diagnosis [facility] [address] [place] [address] 05/21/2024 Provider Migration [facility] [address] [place] [address] 05/22/2024 Provider Migration Plan Of Treatment No Information
--- OUTSIDE RECORDS SUMMARY | 2025-04-28 14:56 | XMS_ITS | Patient Health Record ---
Author Organization [facility] Address [address] [address] [place], [place] [id number] Support Name Relationship Address Phone GRACIELA THAPA Guarantor Unknown [phone] Reason For Referral No Information Plan Of Treatment No Information Insurance Providers Payer Name Payer Address Payer Phone Subscriber Number Group Number Insured Name Patient Relationship to Insured Coverage Start Date Coverage End Date A[employer] PPO [address] [address] [place] [address] [id number] GRACIELA THAPA Self - patient is the insured 2006
--- OUTSIDE RECORDS SUMMARY | 2025-04-28 14:56 | XMS_ITS | Encounter Summary ---
Author Organization [facility] Address [address] [place] [address] Care Team Providers Care Door Closer Name Role Phone Kesha Lopez MD Primary Care Provider Encounter Details Date Type Department Care Team (Late st Contact Info) Description 09/14/2024 Scanned Document [facility] [address] [place] [address] [address] [place] [address] Kesha Lopez MD [address] [place] [address] [address] [place] [address] Social History Tobacco Use Types Packs/Day Years Used Date Smoking Tobacco: Former Cigarettes S tarted: 1990 Smokeless Tobacco: Never Alcohol Use Standard Drinks/Week Comments Not Asked 0 (1 standard drink = 0.6 oz pur e alcohol) ocassionally PHQ-2 Answer Date Recorded PHQ-2 Total Score 2 06/22/2024 Comments Unknown Sex and Gender Information Value Date Recorded Sex Assigned at Not on file Legal Sex Female 2:03 PM EST Gender Identity Not on file Sexual Orientation Not on file documented as of this encounter Plan of Treatment Not on file documented as of this encounter Visit Diagnoses Not on filedocumented in this encounter Care Teams Door Closer Relationship Specialty Start Date End Date Kesha Lopez MD [address] [place] [address] [address] [place] [address] PCP - General Internal Medicine 06/22/24 documented as of this encounter
--- OUTSIDE RECORDS SUMMARY | 2025-04-28 14:56 | XMS_ITS | Encounter Summary ---
Author Organization [facility] Address [address] [place] [address] Care Team Providers Care Gravel Machine Operator Name Role Phone Kesha Lopez MD Primary Care Provider Encounter Details Date Type Department Care Team (Late st Contact Info) Description 07/14/2024 Scanned Document [facility] [address] [place] [address] [address] [place] [address] Kesha Lopez MD [address] [place] [address] [address] [place] [address] Social History Tobacco Use Types Packs/Day Years [...] on filedocumented in this encounter Care Teams Gravel Machine Operator Relationship Specialty Start Date End Date Kesha Lopez MD [address] [place] [address] [address] [place] [address] PCP - General Internal Medicine 06/22/24 documented as of this encounter
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
--- OUTSIDE RECORDS SUMMARY | 2025-04-28 14:57 | XMS_ITS | Patient Health Record ---
Author Organization [facility] Address [address] [place] [address] Care Team Providers Care Sales Representative Electric Service Name Role Phone Mateus Deleon Unavailable [phone] Allergies Allergen (clinical drug ingredient) Drug/Non Drug Allergy documented on EMR Reaction Allergy Type Onset Date Status penicillin anaphylaxis Drug Allergy Acti ve Wellbutrin seizure Drug Allergy Active Reason For Referral No Information Medications Medication SIG (Take, Route, Frequency, Duration) Notes Start Date End Date Status Codeine Phosphate-Promethazine HCl 10 mg-6.25 mg/5 mL 5 ml orally Q 4-6 hours, PRN; Duration: 10 day(s) 08/07/2013 Active Ventolin HFA CFC free 90 mcg/inh 2 puff(s) inhaled 4 times a day; Duration: 30 day(s) 08/07/2013 Activ e CeleBREX Active Adderall Active Problems Problem Type SNOMED Code ICD Code Onset Dates Problem Status W/U Status Risk Notes Problem Ovarian failure (861926097) Ovarian Failure NEC (256.39) Active confirmed Problem Mixed anxiety and depressive disorder (617448246) Depression with anxiety (300.4) Active confirmed Plan Of Treatment No Information Insurance Providers Payer Name Payer Address Payer Phone Subscriber Number Group Number Insured Name Patient Relationship to Insured Coverage Start Date Coverage End Date [employer] [address] [address] [place] [id number] Vannessa Mariee Self - patient is the insured Medical (General) History Medical History History ICD Code anxiety depression complete ovarian failure Surgical History Surgery Date(Month/Year) laparoscopy Intussusception Hospitalization History Reason Date(Month/Year) pneumonia x 7
--- OUTSIDE RECORDS SUMMARY | 2025-04-28 14:57 | XMS_ITS | Clinical Summary ---
Author Organization [facility] Address [address] [place] [address] Care Team Providers Care Cogeneration Operator Name Role Phone Kesha Lopez MD Primary Care Provider Allergies Active Allergy Reactions Criticality Noted Date Comments Azelastine Swelling Medium 07/21/2024 Eye sweeling Penicillins Hives Medium 06/22/2024 Sulfa Antibiotics Rash/Dermatitis Low 06/22/2024 Medications gabapentin (NEURONTIN) 300 MG capsule Take 300 mg by mouth 2 times a day. Active Lumateperone Tosylate (Caplyta) 10.5 MG Cap Take 21 mg by mouth daily. Active amphetamine-dextr oamphetamine (ADDERALL) 30 MG tablet Take 30 mg by mouth 2 (two) times a day. Active vilazodone (VIIBRYD) 20 MG tablet Take 20 mg by mouth daily. Active HYDROcodone-aceta minophen (NORCO) 10-325 mg per tablet Take 1 tablet by mouth 4 times daily (every 6 hours) as needed for severe pain. Active cyclobenzaprine (FLEXERIL) 5 MG tablet Take 5 mg by mouth 3 times daily (every 8 hours) as needed for muscle spasms. Active EPINEPHrine 0.3 mg/0.3 mL IJ auto-injection Inject 0.3 mL (0.3 mg total) into the thigh once as needed for allergic reaction. Active ibuprofen (MOTRIN) 800 mg tablet Take 800 mg by mouth 4 times daily (every 6 hours) as needed for mild pain. Active albuterol (PROVENTIL HFA; VENTOLIN HFA) 108 (90 Base) MCG/ACT inhalerIndication s:Acute bronchitis, unspecified organism Inhale 2 puffs 4 times daily (every 6 hours) as needed for wheezing. 1 each 11/20/202 4 Active hydroxychloroquin e (PLAQUENIL) 200 MG tabletIndications :Rheumatoid arthritis with positive rheumatoid factor, involving unspecified site (HCC) TAKE 1 TABLET(200 MG) BY MOUTH TWICE DAILY WITH MEALS AND WITH FOOD OR MILK 180 tablet 4 Active amLODIPine (NORVASC) 5 MG tabletIndications :Primary hypertension Take 1 tablet (5 mg total) by mouth daily. 90 tablet 4 Active loperamide (IMODIUM A-D) 2 MG capsuleIndication s:Chronic diarrhea Take 1 capsule (2 mg total) by mouth 4 (four) times a day as needed for diarrhea. 90 capsule 4 Active rizatriptan (MAXALT) 10 MG tabletIndications :Migraine without status migrainosus, not intractable, unspecified migraine type Take 1 tablet (10 mg total) by mouth once as needed for migraine (1 pill at start of migraine, may repeat once after 2 hours, max 2 pills over 24 hours). 9 tablet 4 Active Active Problems Problem Noted Date Diagnosed Date Cervical radiculopathy 07/27/2024 Chronic neck pain 07/27/2024 Chronic diarrhea 07/27/2024 Irritable bowel syndrome with diarrhea Migraine without status migrainosus, not intract able 07/27/2024 Encounter to establish care 06/22/2024 Encounter for screening for depression 4 Family History Medical History Relation Name Comments Leukemia Father Diabetes Mother Hypertension Mother Lung cancer Mother Stroke Mother Thyroid cancer Mother Relation Name Status Comments Father Mother Social History Tobacco Use Types Packs/Day Years Used Date Smoking Tobacco: Former Cigarettes S tarted: 1990 Smokeless Tobacco: Never Tobacco Cessation:Counseling Given: Not Answered Alcohol Use Standard Drinks/Week Comments Not Asked 0 (1 standard drink = 0.6 oz pur e alcohol) ocassionally PHQ-2 Answer Date Recorded PHQ-2 Total Score 2 06/22/2024 Comments Unknown Sex and Gender Information Value Date Recorded Sex Assigned at Not on file Legal Sex Female 2:03 PM EST Gender Identity Not on file Sexual Orientation Not on file Last Filed Vital Signs Vital Sign Reading Time Taken Comments Blood Pressure 189/91 07/21/2024 1:23 PM EST Pulse 85 07/21/2024 1:23 PM EST Temperature 37.4 C (99.3 F) 07/21/2024 1:23 PM EST Respiratory Rate - - Oxygen Saturation 100% 07/21/2024 1:23 PM EST Inhaled Oxygen Concentration - - Weight 64.4 kg (142 lb) 07/21/2024 1:23 PM EST Height 169.5 cm (5' 6.73 ) 07/21/2024 1:23 PM ES T Body Mass Index 22.42 07/21/2024 1:23 PM EST Plan of Treatment Health Maintenance Due Date Last Done Comments Hepatitis C Virus Screening 1969 COVID-19 Vaccine (#1) 1974 HIV Screening 1982 Annual Wellness Visit 1987 Physical 1987 DTaP/Tdap/Td Vaccines (1 - Tdap) 1988 Hepatitis B Vaccines (1 of 3 - 19+ 3-dose series) 06/03 Pneumococcal Vaccines 50+ (1 of 2 - PCV) 1988 Zoster (Shingles) Vaccine (1 of 2) 1988 Pap Smear (Ages 21-65) 1990 Mammogram 2009 Colonoscopy 2014 Influenza Vaccine 03/03/2025 Controlled Substance Agreeme nt Initial and Annual Review Discontinued 06/22/2024 Insurance MEDICARE PART A & B MEDICARE PART A & B MEDICARE PART A & B MEDICARE PART A & B Care Teams Cogeneration Operator Relationship Specialty Start Date End Date Kesha Lopez MD [address] [facility] [address] [place] [address] PCP - General Internal Medicine 06/22/24
--- OUTSIDE RECORDS SUMMARY | 2025-04-28 14:58 | XMS_ITS | Encounter Summary ---
Author Organization [facility] Address [address] [place] [address] Care Team Providers Care Shipfitter Apprentice Name Role Phone Kesha Lopez MD Primary Care Provider [phone] Encounter Details Date Type Department Care Team (Late st Contact Info) Description 06/27/2024 Scanned Document [facility] [address] [place] [address] [address] [place] [address] Kesha Lopez MD [address] [place] [address] [address] [place] [address] Social History Tobacco Use Types Packs/Day Years [...] on filedocumented in this encounter Care Teams Shipfitter Apprentice Relationship Specialty Start Date End Date Kesha Lopez MD [address] [place] [address] [address] [place] [address] PCP - General Internal Medicine 06/22/24 documented as of this encounter
--- OUTSIDE RECORDS SUMMARY | 2025-04-28 14:58 | XMS_ITS | Encounter Summary ---
Author Organization [facility] Address [address] [place] [address] Care Team Providers Care Broke Beater Name Role Phone Kesha Lopez MD Primary Care Provider [phone] Encounter Details Date Type Department Care Team (Late st Contact Info) Description 06/27/2024 Scanned Document [facility] [address] [place] [address] [address] [place] [address] Kesha Lopez MD [address] [place] [address] [address] [place] [address] Social History Tobacco Use Types Packs/Day Years [...] on filedocumented in this encounter Care Teams Broke Beater Relationship Specialty Start Date End Date Kesha Lopez MD [address] [place] [address] [address] [place] [address] PCP - General Internal Medicine 06/22/24 documented as of this encounter
--- OUTSIDE RECORDS SUMMARY | 2025-04-28 14:58 | XMS_ITS | Clinical Summary ---
Author Organization [facility] Address [address] [place] [address] Phone Care Team Providers Care Family Service Assistant Name Role Phone Hollie Flores PA-C Primary Care Provider [phone] Allergies Active Allergy Reactions Criticality Noted Date Comments Azelastine Swelling Medium 07/21/2024 Eye swelling Penicillins Rash Low 04/27/2024 Sulfa (Sulfonamide Antibiotics) Hives High 04/04 Medications RIZATRIPTAN BENZOATE (MAXALT ORAL) prn Active IBUPROFEN/PSEUD OEPHEDRINE HCL (ADVIL COLD AND SINUS ORAL) as needed. Active CETIRIZINE HCL (ZYRTEC ORAL) Take 10 mg by mouth daily. prn Active dextroamphetami ne-amphetamine (ADDERALL) 20 mg Tab tablet Orally Twice a day Active EPINEPHRINE (EPIPEN INJ) prn Active albuterol 90 mcg/actuation inhaler Inhale 2 puffs into the lungs every 6 (six) hours as needed. Active fluticasone propionate (FLONASE) 50 mcg/actuation nasal spray 1 spray by Nasal route as needed for rhinitis. Active vilazodone (VIIBRYD) 20 mg Tab Take 40 mg by mouth daily. Active ibuprofen (ADVIL,MOTRIN) 200 MG tablet Take 400-800 mg by mouth every 6 (six) hours as needed. Active diclofenac sodium (VOLTAREN) 1 % Gel Apply 2 g topically as needed. Neck and hands Active CAPLYTA 21 mg capsule Take 21 mg by mouth daily. Active cyclobenzaprine (FLEXERIL) 5 MG tabletIndicatio ns:Rheumatoid arthritis involving multiple sites with positive rheumatoid factor,Long-ter m use of Plaquenil,NSAID long-term use Take 1 tablet (5 mg total) by mouth nightly at bedtime. 90 tablet 1 5 Active loperamide (IMODIUM) 2 mg capsule Take 2 mg by mouth 4 (four) times a day as needed. 4 Active gabapentin (NEURONTIN) 300 MG capsuleIndicati ons:Rheumatoid arthritis involving multiple sites with positive rheumatoid factor,Long-ter m use of Plaquenil,NSAID long-term use Take 1 capsule (300 mg total) by mouth 2 (two) times a day. 180 capsule 1 5 Active hydroxychloroqu ine (PLAQUENIL) 200 mg tabletIndicatio ns:Rheumatoid arthritis involving multiple sites with positive rheumatoid factor Take 1 tablet (200 mg total) by mouth daily. with food or milk 90 tablet 1 5 Active amLODIPine (NORVASC) 5 MG tablet Take 5 mg by mouth daily. 4 04/21/20 25 Discontinu ed(No longer taking) gabapentin (NEURONTIN) 300 MG capsuleIndicati ons:Rheumatoid arthritis involving multiple sites with positive rheumatoid factor,Long-ter m use of Plaquenil,NSAID long-term use Take 1 capsule (300 mg total) by mouth 2 (two) times a day. 180 capsule 1 5 04/21/20 25 Discontinu ed(Reorder ) hydroxychloroqu ine (PLAQUENIL) 200 mg tabletIndicatio ns:Rheumatoid arthritis involving multiple sites with positive rheumatoid factor,Long-ter m use of Plaquenil,NSAID long-term use Take 1 tablet (200 mg total) by mouth daily. with food or milk 90 tablet 1 5 04/21/20 25 Discontinu ed(Reorder ) Active Problems Problem Noted Date Diagnosed Date Neck pain 04/21/2025 Arthropathy of cervical facet joint 04/21/2025 Rheumatoid arthritis involvi ng multiple sites with positive rheumatoid factor 09/12/2024 Assessment & Plan (04/21/2025 3:26 PM EDT): Clinically active over the right wrist & carpal region in addition to marked stiffness in the cervical spine that may be reflective inflammatory component seen in patients with seropositive rheumatoid arthritis. Carefully continue Plaquenil 200 mg daily along with Flexeril 5 mg daily as needed and gabapentin 300 mg twice daily. Reminded patient to arrange close ophthalmologic follow-up in view of 9th year of Plaquenil therapy that puts her at an increased risk for ophthalmologic complications. Continue joint protection, energy conservation, splinting and assistive devices to reduce pain, stiffness, swelling and continue optimal function. On her request I have injected her right wrist with long-acting Kenalog and lidocaine mixture today-see details in procedure note below: Procedure: After an informed written consent, under sterile conditions using Ethyl chloride spray for local anesthesia I have injected 30 mg Kenalog and 1.5 cc 1% Lidocaine into R wrist from dorsal approach uneventfully. Details of post-procedure care were explained to the patient in the office and given in writing. Call if problems or questions. Assessment & Plan (01/17/2025 9:46 AM EDT): Clinically active over the right wrist & carpal region in addition to marked stiffness in the cervical spine that may be reflective inflammatory component seen in patients with seropositive rheumatoid arthritis. Carefully continue Plaquenil 200 mg daily along with Flexeril 5 mg daily as needed and gabapentin 300 mg twice daily. Reminded patient to arrange close ophthalmologic follow-up in view of 9th year of Plaquenil therapy that puts her at an increased risk for ophthalmologic complications. Continue joint protection, energy conservation, splinting and assistive devices to reduce pain, stiffness, swelling and continue optimal function. On her request I have injected her right wrist with long-acting Kenalog and lidocaine mixture today-see details in procedure note below: Procedure: After an informed written consent, under sterile conditions using Ethyl chloride spray for local anesthesia I have injected 30 mg Kenalog and 1.5 cc 1% Lidocaine into R wrist from dorsal approach uneventfully. Details of post-procedure care were explained to the patient in the office and given in writing. Call if problems or questions. Assessment & Plan (12/12/2024 4:10 PM EDT): Clinically active over the right wrist & carpal region in addition to marked stiffness in the cervical spine that may be reflective inflammatory component seen in patients with seropositive rheumatoid arthritis. Carefully continue Plaquenil 200 mg twice daily along with Flexeril 5 mg daily as needed and gabapentin 300 mg twice daily. Reminded patient to arrange close ophthalmologic follow-up in view of ninth year of Plaquenil therapy that puts her at an increased risk for ophthalmologic complications. Continue joint protection, energy conservation, splinting and assistive devices to reduce pain, stiffness, swelling and continue optimal function. If symptoms progress and it is more than 3 months from the last intra-articular steroid injection she can call for an hide on appointment particularly if she is still awaiting orthopedic hand surgeon consultation. Call if problems or questions. Assessment & Plan (10/11/2024 9:56 PM EDT): Clinically active over the right wrist & carpal region in addition to marked stiffness in the cervical spine that may be reflective inflammatory component seen in patients with seropositive rheumatoid arthritis. On patient's request I agreed to inject right wrist: Procedure: After an informed /written consent, under sterile conditions using Ethyl chloride spray for local anesthesia I have injected 30 mg Kenalog and 2 cc 1% Lidocaine into Right wrist from dorsal approach uneventfully. Details of post-procedure care were explained to the patient in the office and given in writing. Provider: Tess Vasquez MD Patient: Vannessa Mariee : 1970 Date: 10/10/2024 Carefully continue Plaquenil 200 mg twice daily along with Flexeril 5 mg daily as needed and gabapentin 300 mg twice daily. Reminded patient to arrange close ophthalmologic follow-up in view of ninth year of Plaquenil therapy that puts her at an increased risk for ophthalmologic complications. Continue joint protection, energy conservation, splinting and assistive devices to reduce pain, stiffness, swelling and continue optimal function. Call if problems or questions. Assessment & Plan (09/13/2024 11:58 AM EST): Clinically active over the right wrist carpal region in addition to marked stiffness in the cervical spine that may be reflective inflammatory component seen in patients with seropositive rheumatoid arthritis. New set of lab work requested today and refilled prescriptions for Plaquenil 200 mg twice daily along with Flexeril 5 mg daily as needed and gabapentin 300 mg twice daily. Reminded that patient to arrange close ophthalmologic follow-up in view of ninth year of Plaquenil therapy that puts her at an increased risk for ophthalmologic complications. Continue joint protection, energy conservation, splinting and assistive devices to reduce pain, stiffness, swelling and continue optimal function. Call if problems or questions. Long-term use of Plaquenil 09/12/2024 Assessment & Plan (04/21/2025 3:26 PM EDT): Reminded to get checkup within the next weeks and avoid sunburns by using daily sun protection particularly during spring and summer months or while traveling to [facility] for [place]. Due to her running out of Plaquenil supply at home because she previously always took it twice daily she ran out of the supply prescribed to her in September 2024 when I decreased the daily dose to once daily until I see reassuring ophthalmologic checkup. I have re-sent prescription and above explanation to her pharmacy and tried talking to the pharmacist directly by [phone] though I waited 5 minutes unable to reach anyone. Assessment & Plan (01/17/2025 9:48 AM EDT): Reminded to get checkup within the next weeks and avoid sunburns by using daily sun protection particularly during spring and summer months or while traveling to [facility] for [place]. Due to her running out of Plaquenil supply at home because she previously always took it twice daily she ran out of the supply prescribed to her in September 2024 when I decreased the daily dose to once daily until I see reassuring ophthalmologic checkup. I have re-sent prescription and above explanation to her pharmacy and tried talking to the pharmacist directly by [phone] though I waited 5 minutes unable to reach anyone. Assessment & Plan (12/12/2024 3:26 PM EDT): Reminded to make ophthalmologic checkup and avoid sunburns by using daily sun protection particularly during spring and summer months or while traveling to [facility] for [place]. Assessment & Plan (10/10/2024 10:55 AM EDT): Reminded to make ophthalmologic checkup and avoid sunburns by using daily sun protection particularly during spring and summer months or while traveling to [facility] [place]. Assessment & Plan (09/13/2024 11:59 AM EST): Reminded to make ophthalmologic checkup and avoid sunburns by using daily sun protection particularly during spring and summer months or while traveling to [facility] [place]. NSAID long-term use 09/12/2024 Assessment & Plan (04/21/2025 3:26 PM EDT): Take the lowest dose, with least frequency, for shortest time. Remember to take it always with food. Favor topical over oral preparations. Assessment & Plan (01/16/2025 12:17 PM EDT): Take the lowest dose, with least frequency, for shortest time. Remember to take it always with food. Favor topical over oral preparations. Assessment & Plan (12/12/2024 3:26 PM EDT): Take the lowest dose, with least frequency, for shortest time. Remember to take it always with food. Favor topical over oral preparations. Assessment & Plan (10/10/2024 10:55 AM EDT): Take the lowest dose, with least frequency, for shortest time. Remember to take it always with food. Favor topical over oral preparations. Assessment & Plan (09/13/2024 11:58 AM EST): Take the lowest dose, with least frequency, for shortest time. Remember to take it always with food. Favor topical over oral preparations. CVID (common variable immunodeficiency) 09/12/19 25 Assessment & Plan (04/21/2025 3:26 PM EDT): Continue close follow-up with manager cable as scheduled. Assessment & Plan (01/16/2025 12:17 PM EDT): Continue close follow-up with manager cable as scheduled. Assessment & Plan (12/12/2024 3:26 PM EDT): Continue close follow-up with manager cable as scheduled. Assessment & Plan (09/13/2024 11:59 AM EST): Continue close follow-up with manager cable as scheduled. Chronic use of opiate drug for therapeutic purpo se 09/12/2024 Assessment & Plan (09/13/2024 11:59 AM EST): Take exactly as prescribed, try to limit frequency by employing non-for pharmacologic measures such as topical creams, warm packs, patches, regular relaxation/mediation/positive imagery sessions etc. Build up regular exercise routine up to the goal of 30-45 minutes daily. Monitor for increasing shortness of breath, reduced respiratory drive, increasing constipation Age-related osteoporosis wit hout current pathological fracture 09/12/2024 Assessment & Plan (04/21/2025 3:27 PM EDT): Continue proper calcium vitamin D supplementation, daily weightbearing exercises, fall and fracture prevention strategies. Interval BMD requested. On her request I previously provided her with literature on daily option for osteoporosis treatment from selective estrogen receptor modul[facility] (raloxifene) Today she expressed an interest in getting once every 12 months intra venous Reclast-see details in rheumatology therapy plans, [facility] infusion center referral and patient instruction section Assessment & Plan (01/16/2025 1:28 PM EDT): Continue proper calcium vitamin D supplementation, daily weightbearing exercises, fall and fracture prevention strategies. Interval BMD requested. On her request I previously provided her with literature on daily option for osteoporosis treatment from selective estrogen receptor modul[facility] (raloxifene) Today she expressed an interest in getting once every 12 months intra venous Reclast-see details in rheumatology therapy plans, [facility] infusion center referral and patient instruction section Assessment & Plan (12/12/2024 3:26 PM EDT): Continue proper calcium vitamin D supplementation, daily weightbearing exercises, fall and fracture prevention strategies. Interval BMD requested. On her request I provided her with literature on daily open should for osteoporosis treatment from selective estrogen receptor modul[facility] group[facility] (raloxifene) Assessment & Plan (10/11/2024 9:57 PM EDT): Continue proper calcium vitamin D supplementation, daily weightbearing exercises, fall and fracture prevention strategies. Interval BMD requested. On her request I provided her with literature on daily open should for osteoporosis treatment from selective estrogen receptor modulators group-[facility] (raloxifene) Assessment & Plan (09/13/2024 12:00 PM EST): Continue proper calcium vitamin D supplementation, daily weightbearing exercises, fall and fracture prevention strategies. Interval BMD requested. Encounters Date Type Department Care Team Description 04/21/2025 2:30 PM EDT Office Visit [facility] [address] [place] [address] [place] [id number] Tess Vasquez MD Rheumatoid arthritis involving multiple sites with positive rheumatoid factor (Primary Dx); Long-term use of Plaquenil; NSAID long-term use; Age-related osteoporosis without current pathological fracture; CVID (common variable immunodeficiency); Arthropathy of cervical facet joint 03/24/2025 Telephone [facility] [address] [place] [address] [place] [phone] Tess Vasquez MD Referral Question from Last 3 Months Immunizations Immunization Administration Dates Next Due Tdap 02/11/2025 Tetanus Immune Globulin 02/12/2025 Social History Tobacco Use Types Packs/Day Years Used Date Smoking Tobacco: Never Smokeless Tobacco: Never Tobacco Cessation:Counseling Given: Not Answered Alcohol Use Standard Drinks/Week Comments Not Asked 0 (1 standard drink = 0.6 oz pur e alcohol) 1-2 times a year Education Answer Date Recorded Are you interested in more education? Not on chani e 11/28/2022 Are you concerned about learning? Not on file 11/28/2022 No 11/28/2022 No 11/28/2022 Digital Access Answer Date Recorded No 12/27/2022 No 12/27/2022 Reliable internet access at home? Not on file 12/27/2022 Device with a working camera? Not on file Comments Unknown Sex and Gender Information Value Date Recorded Sex Assigned at Not on file Legal Sex Female 9:36 PM EDT Gender Identity Not on file Sexual Orientation Not on file Last Filed Vital Signs Vital Sign Reading Time Taken Comments Blood Pressure 128/78 04/21/2025 2:42 PM EDT Pulse 87 04/21/2025 2:42 PM EDT Temperature - - Respiratory Rate - - Oxygen Saturation 98% 04/21/2025 2:42 PM EDT Inhaled Oxygen Concentration - - Weight 63.3 kg (139 lb 9.6 oz) 04/21/2025 2:42 P M EDT Height 170.2 cm (5' 7 ) 04/21/2025 2:42 PM EDT Body Mass Index 21.86 04/21/2025 2:42 PM EDT Plan of Treatment Upcoming Encounters Date Type Department Care Team (Late st Contact Info) Description 05/01/2025 12:45 PM EDT Office Visit [facility] [address] [place] [id number] Tess Jimenez MD [address] [place] [address] Orthopedics & Sports Medicine, [facility] [place] [address] 08/16/2025 10:15 AM EST Appointment [facility], Bone Density - [address] [address] Tess Vasquez MD [address] [place] [address] [email or web address] 08/23/2025 4:30 PM EST Office Visit [facility] [address] [place] [phone] Tess Vasquez MD [address] [place] [address], [address] [address] [email or web address] Health Maintenance Due Date Last Done Comments LIPID PANEL 1970 DEPRESSION SCREENING 1981 HEPATITIS C SCREENING 1987 HIV ONE-TIME SCREENING (18-6 5 YEARS) 1987 PNEUMOCOCCAL VACCINES (50+ y ears) (1 of 2 - PCV) 1988 ZOSTER VACCINES (1 of 2) 1988 PAP SMEAR 1990 MAMMOGRAM 2009 COLOGUARD 2014 COLONOSCOPY 2014 COLORECTAL CANCER SCREENING 2014 FIT TEST 2014 FOBT 2014 SIGMOIDOSCOPY 2014 VIRTUAL COLONOSCOPY 2014 INFLUENZA VACCINE (#1) 2025 COVID-19 VACCINE (1 - 2023-2 5 season) 2025 Adult Td,Tdap Booster 02/11/2035 02/11/2025 SMOKING STATUS SCREENING (On ce After 26 Yrs) Completed 04/21/2025 HEPATITIS A VACCINES Aged Out No long er eligible based on patient's age to complete this topic HIB VACCINES Aged Out No longer eligi ble based on patient's age to complete this topic MENINGOCOCCAL VACCINES (ACWY) Aged Out No longer eligible based on patient's age to complete this topic MENINGOCOCCAL VACCINES (B) Aged Out N o longer eligible based on patient's age to complete this topic Medical Devices Not on file Insurance MEDICARE PART A & B [facility] A & B HEALTH MEDICARE PART A & B HEALTH MEDICARE PART A & B [facility] PART A & [facility] & [facility] A & B [place] [facility] A & B [facility] MEDICARE PART A & B [facility] Care Teams Family Service Assistant Relationship Specialty Start Date End Date Hollie Flores PA-C [address] [place] [phone] [email or web address] PCP - General Physician Dragline Oiler 01/03/25 Additional Source Comments The information contained in this document represents components of the legal health record. It is not the complete legal health record.[facility]
--- OUTSIDE RECORDS SUMMARY | 2025-04-28 14:58 | XMS_ITS | Encounter Summary ---
Author Organization [facility] Address [address] [place] [address] Care Team Providers Care Customs Inspector Name Role Phone Kesha Lopez MD Primary Care Provider [phone] Encounter Details Date Type Department Care Team (Late st Contact Info) Description 06/27/2024 Scanned Document [facility] [address] [place] [address] [address] [place] [address] Kesha Lopez MD [address] [place] [address] [address] [place] [address] Social History Tobacco Use Types Packs/Day Years [...] on filedocumented in this encounter Care Teams Customs Inspector Relationship Specialty Start Date End Date Kesha Lopez MD [address] [place] [address] [address] [place] [address] PCP - General Internal Medicine 06/22/24 documented as of this encounter
--- OUTSIDE RECORDS SUMMARY | 2025-04-28 14:58 | XMS_ITS | Encounter Summary ---
Author Organization [facility] Address [address] [place] [address] Care Team Providers Care Absence Management Consultant Name Role Phone Kesha Lopez MD Primary Care Provider [phone] Encounter Details Date Type Department Care Team (Late st Contact Info) Description 06/27/2024 Scanned Document [facility] [address] [place] [address] [address] [place] [address] Kesha Lopez MD [address] [place] [address] [address] [place] [address] Social History Tobacco Use Types Packs/Day Years [...] on filedocumented in this encounter Care Teams Absence Management Consultant Relationship Specialty Start Date End Date Kesha Lopez MD [address] [place] [address] [address] [place] [address] PCP - General Internal Medicine 06/22/24 documented as of this encounter
--- OUTSIDE RECORDS SUMMARY | 2025-04-28 14:58 | XMS_ITS | Encounter Summary ---
Author Organization [facility] Address [address] [place] [address] Care Team Providers Care Shipping Agent Name Role Phone Kesha Lopez MD Primary Care Provider [phone] Encounter Details Date Type Department Care Team (Late st Contact Info) Description 06/28/2024 Scanned Document [facility] [address] [place] [address] [address] [place] [address] Kesha Lopez MD [address] [place] [address] [address] [place] [address] Social History Tobacco Use Types Packs/Day Years [...] on filedocumented in this encounter Care Teams Shipping Agent Relationship Specialty Start Date End Date Kesha Lopez MD [address] [place] [address] [address] [place] [address] PCP - General Internal Medicine 06/22/24 documented as of this encounter
--- OUTSIDE RECORDS SUMMARY | 2025-04-28 14:58 | XMS_ITS | Encounter Summary ---
Author Organization [facility] Address [address] [place] [address] Care Team Providers Care Fish Cake Maker Name Role Phone Kesha Lopez MD Primary Care Provider Encounter Details Date Type Department Care Team (Late st Contact Info) Description 07/06/2024 Scanned Document [facility] [address] [place] [address] [address] [place] [address] Kesha Lopez MD [address] [place] [address] [address] [place] [address] Social History Tobacco Use Types Packs/Day Years [...] on filedocumented in this encounter Care Teams Fish Cake Maker Relationship Specialty Start Date End Date Kesha Lopez MD [address] [place] [address] [address] [place] [address] PCP - General Internal Medicine 06/22/24 documented as of this encounter
--- OUTSIDE RECORDS SUMMARY | 2025-04-28 14:58 | XMS_ITS | Patient Health Record ---
Author Organization [employer] [facility] Address [address] [place] [address] Support Name Relationship Address Phone Vannessa Mariee Guarantor Unknown [phone] Reason For Referral No Information Medications Medication SIG (Take, Route, Frequency, Duration) Notes Start Date End Date Status Adderall 20 MG Tablet take 1 tablet (20 mg) by oral route 2 times per day before breakfast and at noon Oral 2 Active Screening Mammogram Annual Bilateral Screening Mammogram; Duration: 1 *please review for potential update for e-prescription and drug interaction check* 12/21/2012 Active Plan Of Treatment No Information Insurance Providers Payer Name Payer Address Payer Phone Subscriber Number Group Number Insured Name Patient Relationship to Insured Coverage Start Date Coverage End Date [facility] [address] [place] [address] [id number] Vannessa Mariee Self - patient is the insured
== END 2025-04-28 14:55 | disposition home or self-care (01) ==
LOC: HO.HMCFMS 13:47
PROVIDERS: PCP Student in an Organized Health Care Education/Training Program; Visit Provider Student in an Organized Health Care Education/Training Program
DX: M06.9 Rheumatoid arthritis, unspecified (principal); M19.90 Unspecified osteoarthritis, unspecified site; D83.9 Common variable immunodeficiency, unspecified; M85.80 Other specified disorders of bone density and structure, unspecified site; D50.9 Iron deficiency anemia, unspecified; G43.909 Migraine, unspecified, not intractable, without status migrainosus

== ENCOUNTER 2025-04-28 13:46 | Outpatient (REF) | payer MEDICARE, MEDICAID, SELFPAY ==
[2025-04-28 18:08] LABS: Hematocrit 40.9 % (37.0-47.0); Hemoglobin 13.4 g/dl (12.0-16.0); Imm Gran Abs Auto 0.01 X10*3/uL (0.00-0.03); Imm Gran Pct Auto 0.2 % (0.0-0.4); Lymphocytes Absolute Auto 1.1 X10*3/uL (1.2-4.9); MANUAL DIFF FLAG NO; Mean Corpuscular HGB Conc 32.8 g/dl (31.0-35.0); Mean Corpuscular Hemoglobin 29.2 pg (27.0-33.0); Mean Corpuscular Volume 89.1 fL (80.0-98.0); NRBC Abs Auto 0.000 X10*3/uL (0.0-0.012); NRBC Pct Auto 0.0 /100WBC (0.0-0.2); Platelet Count 301 X10*3/uL (160-400); Red Blood Count 4.59 X10*6/uL (4.20-5.50); White Blood Count 5.3 X10*3/uL (4.8-10.8)
[2025-04-28 18:30] LABS: Alanine Aminotransferase 35 U/L (0-31); Albumin Level 4.9 g/dL (3.5-5.0); Alkaline Phosphatase 110 U/L (39-117); Anion Gap 13 (12-20); Aspartate Amino Transferase 35 U/L (5-31); Blood Urea Nitrogen 21 mg/dL (9-16); Calcium 9.6 mg/dL (8.4-10.2); Carbon Dioxide 29 mmol/L (22-29); Chloride 105 mmol/L (96-108); Cholesterol 215 mg/dL (<200); Estimated Glomerular Filt Rate > 60; HDL Cholesterol 78 mg/dL (>40); Potassium 4.5 mmol/L (3.3-5.1); Sodium 142 mmol/L (135-145); Total Protein 7.9 g/dL (6.5-8.0); Triglycerides 80 mg/dL (<150)
[2025-04-28 18:57] LABS: Appearance Urine Cloudy; Glucose Urine UA Negative (Negative); PH 5.5 (5.0-9.0); Specific Gravity - Urine >= 1.030 (1.005-1.025)
[2025-04-28 19:07] LABS: Folate 17.5 ng/mL (> or = 4.0); Vitamin B12 1518 pg/mL (200-900)
[2025-05-01 04:29] LABS: HBS Num1 1.59 mIU/mL (0-7.99); HBsAGNum1 0.31 S/CO (0.00-0.99); HIV Num 1 0.48 S/CO (0.00-0.99); Hepatitis B Surface Antigen Negative (Negative); ~HepC Num1 0.06 S/CO (0.00-0.79); ~Hepatitis B Surface Antibody NONREACTIVE (Nonreactive); ~Hepatitis C Antibody Nonreactive (Nonreactive)
[2025-05-02 17:43] LABS: VITAMIN D (1,25 OH) D3 47 pg/mL; Vit D (1,25-Dihydroxy) Total 47 pg/mL (18-72); Vitamin D (1,25 OH) D2 <8 pg/mL
== END 2025-04-28 13:47 | disposition home or self-care (01) ==
LOC: HO.HKASLDS 13:46
PROVIDERS: Visit Provider Student in an Organized Health Care Education/Training Program
DX: Z13.9 Encounter for screening, unspecified (principal); Z76.89 Persons encountering health services in other specified circumstances; Z71.9 Counseling, unspecified; Z13.6 Encounter for screening for cardiovascular disorders; Z13.1 Encounter for screening for diabetes mellitus; Z13.220 Encounter for screening for lipoid disorders; Z11.4 Encounter for screening for human immunodeficiency virus [HIV]; Z11.3 Encounter for screening for infections with a predominantly sexual mode of transmission; Z12.4 Encounter for screening for malignant neoplasm of cervix; Z87.09 Personal history of other diseases of the respiratory system; M06.9 Rheumatoid arthritis, unspecified; M19.90 Unspecified osteoarthritis, unspecified site; M85.80 Other specified disorders of bone density and structure, unspecified site; Z13.820 Encounter for screening for osteoporosis; D83.9 Common variable immunodeficiency, unspecified; D50.9 Iron deficiency anemia, unspecified; G43.909 Migraine, unspecified, not intractable, without status migrainosus
CPT/HCPCS: 36415; 80053; 80061; 81003; 82607; 82652; 82746; 83036; 84443; 85025; 86706; 86803; 87340; 87389; 99202

== ENCOUNTER 2025-05-16 11:29 | Outpatient (AMB) | payer MEDICARE, MEDICAID, SELFPAY ==
[2025-05-16 11:32] VITALS: BP 151/81; PULSE 79; RESP 16; TEMP 37.1; O2SAT 95; BMI 22.3
--- NOTE | 2025-05-16 11:32 | A.OFFPC_ITS ---
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 preise r dx Carriage Feeder Required: No Accompanied by: Self / Same As Patient Allergies Penicillins (PENICILLINS) Allergy (Unknown, Verified 05/16/25 11:32) UNKNOWN sulfate Allergy (Severe, Uncoded 05/16/25 11:42) burn BEES Allergy (Unknown, Uncoded 02/05/25 18:58) Unknown Wellbutrin Allergy (Unknown, Uncoded 02/05/25 18:58) Unknown Tobacco use date assessed: 05/16/25 Dental Screening Dental Screen Date: 05/16/25 Did you have a dental visit in the last 12 months?: No Did you have a dental problem in the last 6 months where you did not have access to dental care?: No Was dental information given to patient?: No HPI HPI Comments History of Present Illness Details Consent Patient was informed and verbally consented to the use of an ambient scribe for clinic note documentation during this visit. History of Present Illness The patient is a 54-year-old female presenting with concerns about bone health, specifically osteoporosis and avascular necrosis, as well as elevated cholesterol levels and neck pain. Osteoporosis: - The patient has a history of osteoporo sis diagnosed from a bone scan conducted approximately five years ago. - She has not been on any bisphosphonate s due to concerns about immune system effects and is awaiting further evaluation with a bone scan. Avascular necrosis of the scaphoid bone: - The patient was diagnosed with avascul ar necrosis of the scaphoid bone after experiencing persistent hand pain and undergoing multiple x-rays and an MRI. - Surgical intervention is planned, invo lving bone grafting and fixation with plates and screws. Elevated cholesterol: - The patient has elevated cholesterol l evels, with total cholesterol at 215 mg/dL and LDL cholesterol at 120 mg/dL. - Lifestyle modifications are planned, a nd a registered physical therapist will provide dietary guidance. Neck pain with possible cervical spine degeneration: - The patient reports worsening neck lori n, associated with headaches and possible cervical spine degeneration, as indicated by previous MRI findings of bone spurs and facet joint degeneration. - Referral to a nuclear medicine specialist is plan lupe for further evaluation and management. Review of Systems - Musculoskeletal: Reports persistent joseph nd pain, neck pain, and history of fractures. Denies recent falls. - Neurological: Reports headaches associ ated with neck pain. Denies dizziness or balance issues. 10-point ROS reviewed and negative excep t as noted in HPI Past Medical History - History of osteoporosis diagnosed five years ago. - History of osteopenia. - Previous fractures of the foot and mccallum d. Health Maintenance - Mammogram scheduled as part of routine screening. - Referral for bone density scan to asse ss osteoporosis progression. - Dietary counseling planned to address elevated cholesterol levels. Physical Exam General: Well-appearing, in no acute distress. Vital signs: Within normal limits. HEENT: Normocephalic, atraumatic. PERRLA, EOMI. Conjunctiva clear, sclera anicteric. Oropharynx clear, mucous membranes moist. TMs intact bilaterally. Neck: Supple, no lymphadenopathy, no thyromegaly, no JVD or carotid bruits. Patient reports worsening neck pain, possibly due to bone spurs and facet joint disintegration. Cardiovascular: RRR, normal S1/S2, no murmurs, rubs, or gallops. Peripheral pulses 2+ and symmetric. No edema. Respiratory: Lungs clear to auscultation bilaterally, no wheezes, rales, or rhonchi. Normal effort. Abdomen: Soft, non-tender, non-distended. Normoactive bowel sounds. No hepatosplenomegaly, no masses. MSK: Full range of motion, no joint swelling or deformity. Normal gait. History of multiple fractures and avascular necrosis of the scaphoid bone. Height decreased from 5'8-1/2 to 5'6. Skin: Warm, dry, intact. No rashes, lesions, or pallor. Neuro: Alert and oriented x3. Cranial nerves II-XII intact. Strength 5/5 throughout. Sensation intact. Reflexes 2+ symmetric. Normal coordination and gait. Psych: Appropriate mood and affect. Normal judgment and insight. Patient expresses frustration and concern about bone health and upcoming surgeries. Plan 1. Osteoporosis - Plan to obtain a bone density scan to evaluate the progression of osteoporosis. - Consideration of bisphosphonates pendi ng further evaluation and eye exam results. 2. Avascular Necrosis Of The Scaphoid Joel ne - Surgical intervention planned with bon e grafting and fixation to address avascular necrosis. - Post-operative occupational therapy an ticipated to aid in recovery. 3. Elevated Cholesterol - Lifestyle modifications recommended, i ncluding dietary changes with guidance from a registered physical therapist. - Plan to repeat lipid panel in [facility] to assess response to lifestyle changes. 4. Neck Pain With Possible Cervical Spin e Degeneration - Referral to a nuclear medicine specialist for fur ther evaluation and management of neck pain and possible cervical spine degeneration. - Consideration of updated imaging to as sess current status of cervical spine. Discussion Notes I discussed with the patient the importance of addressing her bone health, particularly osteoporosis and avascular necrosis, and the need for surgical intervention for the latter. We reviewed the plan for lifestyle modifications to manage her elevated cholesterol and the necessity of follow-up imaging for her neck pain. I emphasized the importance of coordinating care with specialists, including rheumatology and spine surgery, to ensure comprehensive management of her conditions. Patient Instructions - Schedule and complete the bone density scan as soon as possible. - Follow up with the nuclear medicine specialist fo r neck pain evaluation. - Adhere to dietary recommendations prov ided by the physicist acoustics to manage cholesterol levels. - Prepare for upcoming surgery on the sc aphoid bone and arrange for post- operative occupational therapy. Medical Decision Making The patient's primary concerns include osteoporosis, avascular necrosis of the scaphoid bone, elevated cholesterol, and neck pain. Given the complexity of her conditions, a multidisciplinary approach is necessary. The decision to proceed with surgical intervention for the avascular necrosis is based on the severity of bone loss and pain. Lifestyle modifications are prioritized for cholesterol management, with plans for follow-up lipid panels to monitor progress. Referral to a nuclear medicine specialist is crucial for further evaluation of neck pain, potentially requiring updated imaging and surgical consultation. Total time spent caring for the patient today was 30 minutes. This includes time spent before the visit reviewing the chart, time spent documenting, and time spent reviewing laboratory results, diagnostic imaging, medications, performing a medically necessary evaluation, counseling on diagnoses, care coordination, ordering appropriate tests. [facility] Medical History (Updated 05/16/25 @ 11:51 by Bhargav Pavon MD) Preiser disease Elevated liver enzymes Hyperlipidemia History of deviated nasal septum Neck pain on right side Chronic right ear pain Cervical cancer screening Suicidal ideation Surgical History History of nasal surgery Family History Father No problems noted. Mother Diabetes High cholesterol Afib High blood pressure Cancer Family history of thyroid problem Stroke Social History Housing: Apartment Alcohol intake: current Alcohol intake frequency: holidays/special occasions only Patient Tobacco Use Status: Former Tobacco user e-Cigarette/Vaping Use: Never Used Second Hand Smoke Exposure: Yes service: No Current occupational status: disabled Sexual orientation: Straight/Heterosexual Cognitive needs: No Hearing needs: No Vision needs: Yes (rx glasses) Questionnaire PHQ-9 Over the last 2 weeks, how often have you been bothered by any of the following problems? 1. Little interest or pleasure in doing things: not at all 2. Feeling down, depressed, or hopeless: not at all 3. Trouble falling or staying asleep, or sleeping too much: nearly every day 4. Feeling tired or having little energy: more than half the days 5. Poor appetite or overeating: not at all 6. Feeling bad about yourself - or that you are a failure or have let yourself or your family down: not at all 7. Trouble concentrating on things, such as reading the newspaper or watching television: more than half the days 8. Moving or speaking so slowly that other people could have noticed. Or the opposite - being so fidgety or restless that you have been moving around a lot more than usual: not at all 9. Thoughts that you would be better off or of hurting yourself in some way: not at all Total score: 7 Source: Developed by Drs. Miguel Newby, Rolanda Swain, Ck Garcia and colleagues, with an educational bel from [employer]. Thrive Questionnaire Date Thrive assessed: 05/16/25 I am a: Patient What is your living situation today?: I have a steady place to live Within the past 12 months, did the food you bought not last and you didn't have the money to get more?: Sometimes True Within the past 12 months, did you worry whether your food would run out before you got money to buy more?: Sometimes True Do you have trouble paying for medicines?: No Do you have trouble getting transportation to medical appointments?: No Do you have trouble paying your heating and electricity bill?: Yes Do you have trouble taking care of your child, family member or friend?: No Are you currently unemployed and looking for a job?: No Are you interested in more education?: I choose not to answer this question Please select the resources that you would like help with: Utilities THRIVE Score: 3 DINESH-7 AMB Questionnaire DINESH-7 Date DINESH - 7 assessed: 05/16/25 Feeling nervous, anxious, or on edge: 1 = Several days Not being able to stop or control worryin = Not at all Worrying too much about different things: 1 = Several days Trouble relaxin = Several days Being so restless that it is hard to sit still: 0 = Not at all Becoming easily annoyed or irritable: 1 = Several days Feeling afraid as if something awful might happen: 0 = Not at all Total DINESH-7 score (0-4 normal; 5-9 mild; 10-14 moderate; 15-21 severe): 4 Source: Developed by Drs. Miguel Newby, Rolanda Swain, Ck Garcia and colleagues, with an educational bel from [employer]. Physical exam (Primary Care) Vital Signs: Last Vital Signs Temp 98.7 F 05/16/25 11:32 Pulse 79 05/16/25 11:32 Resp 16 05/16/25 11:32 BP 151/81 H 05/16/25 11:32 Pulse Ox 95 05/16/25 11:32 Oxygen Delivery Method Room Air 05/16/25 11:32 BMI result Body Mass Index 22.3 Tobacco/Smoking Status: Tobacco use Status Tobacco use date assessed 05/16/25 05/16/25 11:35 Patient Tobacco Use Status Never used Tobacco 05/16/25 11:35 Tobacco use type 05/09/25 13:14 e-Cigarette/Vaping Use Never Used 05/16/25 11:35 PHQ-9: PHQ-9 Score PHQ-9: Total score 7 10/14/25 11:35 Thrive Assessment: Date of Thrive Assessment Date Thrive assessed 05/16/25 05/16/25 11:35 Coding Level of Care Code Est Pt Level 4 (86211) Diagnoses Elevated liver enzymes R74.8 Hyperlipidemia E78.5 Preiser disease M87.243 Osteoporosis M81.0 Elevated cholesterol E78.00 Cervicalgia M54.2 Rheumatoid arthritis M06.9 Assessment & Plan Assessment & Plan (1) Elevated liver enzymes: Code(s): R74.8 - Abnormal levels of other serum enzymes Category: Medical (2) Hyperlipidemia: Code(s): E78.5 - Hyperlipidemia, unspecified Category: Medical (3) Preiser disease: Code(s): M87.243 - Osteonecrosis due to previous trauma, unspecified hand Category: Medical (4) Osteoporosis: Code(s): M81.0 - Age-related osteoporosis without current pathological fracture (5) Elevated cholesterol: Code(s): E78.00 - Pure hypercholesterolemia, unspecified (6) Cervicalgia: Code(s): M54.2 - Cervicalgia (7) Rheumatoid arthritis: Code(s): M06.9 - Rheumatoid arthritis, unspecified Plan Orders: Orders XR DEXA axial skeleton Today M06.9 - Rheumatoid arthritis, unspecified, M19.90 - Unspecified osteoarthritis, unspecified site, M87.243 - Osteonecrosis due to previous trauma, unspecified hand, Z78.0 - Asymptomatic menopausal state Referrals Nurse Navigator Referral E78.5 - Hyperlipidemia, unspecified, R74.8 - Abnormal levels of other serum enzymes
== END 2025-05-16 12:16 | disposition home or self-care (01) ==
LOC: HO.HMCFMS 11:29
PROVIDERS: PCP Student in an Organized Health Care Education/Training Program; Visit Provider Student in an Organized Health Care Education/Training Program
DX: R74.8 Abnormal levels of other serum enzymes (principal); E78.5 Hyperlipidemia, unspecified; M87.24 Osteonecrosis due to previous trauma, hand and fingers; M81.0 Age-related osteoporosis without current pathological fracture; E78.00 Pure hypercholesterolemia, unspecified; M54.2 Cervicalgia; M06.9 Rheumatoid arthritis, unspecified

== ENCOUNTER → 2025-05-16 11:29 | Outpatient (BNVA) | payer MEDICARE, MEDICAID, SELFPAY | PROVIDERS: PCP Student in an Organized Health Care Education/Training Program; Visit Provider Student in an Organized Health Care Education/Training Program | DX: R74.8 Abnormal levels of other serum enzymes (principal); E78.5 Hyperlipidemia, unspecified; M87.24 Osteonecrosis due to previous trauma, hand and fingers; M81.0 Age-related osteoporosis without current pathological fracture; E78.00 Pure hypercholesterolemia, unspecified; M54.2 Cervicalgia; M06.9 Rheumatoid arthritis, unspecified; Z13.39 Encounter for screening examination for other mental health and behavioral disorders; Z13.30 Encounter for screening examination for mental health and behavioral disorders, unspecified | CPT/HCPCS: 96127; 99212 ==

== ENCOUNTER 2025-06-15 15:00 | Outpatient (REF) | payer MEDICARE, MEDICAID, SELFPAY ==
--- OUTSIDE RECORDS SUMMARY | 2025-06-15 18:16 | XMS_ITS | Encounter Summary ---
Author Organization [facility] Address [address] [place] [address] [place] [phone] Phone Care Team Providers Care Warehouse Clerk Name Role Phone Bhargav Pavon MD Primary Care Provider Encounter Details Date Type Department Care Team ([facility] st Contact Info) Description 05/31/2025 Procedure Pass OR Admitting Dept - Virtual Department [address] [place] [address] Social History Tobacco Use Types Packs/Day Years Used Date Smoking Tobacco: Former Cigarettes Smokeless Tobacco: Never Comments:Quit 2020 Alcohol Use Standard Drinks/Week Comments Never 0 (1 standard drink = 0.6 oz pur e alcohol) Education Answer Date Recorded Are you interested in more education? Not on chani e 11/28/2022 Are you concerned about learning? Not on file 11/28/2022 No 11/28/2022 No 11/28/2022 Digital Access Answer Date Recorded No 12/27/2022 No 12/27/2022 Reliable internet access at home? Not on file 12/27/2022 Device with a working camera? Not on file Intimate Partner Violence Answer Date R ecorded Are you denied basic needs s uch as food, clothing, or medical care? No 05/31/2025 In the past 12 months have y ou been in a relationship with a person who hurts, threatens, or tries to control you? No 05/31/2025 Are you denied basic needs s uch as food, clothing, or medical care? No 05/31/2025 In the past 12 months have y ou been in a relationship with a person who hurts, threatens, or tries to control you? No 05/31/2025 Comments No Sex and Gender Information Value Date Recorded Sex Assigned at Not on file Legal Sex Female 9:36 PM EDT Gender Identity Not on file Sexual Orientation Not on file documented as of this encounter Plan of Treatment Upcoming Encounters Date Type Department Care Team (Late st Contact Info) Description 06/20/2025 8:45 AM EST Office Visit [facility] Orthopedics & Sports Medicine [address] [place] [phone] Tess Jimenez MD [address] [place] [address] Orthopedics & Sports Medicine, [facility] [place] [address] 06/20/2025 4:45 PM EST Appointment [facility], Bone Density [address] [address] Tess Vasquez MD [address] [place] [phone] [email or web address] 08/23/2025 4:30 PM EST Office Visit [facility] Rheumatology [address] [place] [phone] Tess Vasquez MD [address] [place] [phone] [email or web address] documented as of this encounter Visit Diagnoses Not on filedocumented in this encounter Care Teams Warehouse Clerk Relationship Specialty Start Date End Date Bhargav Pavon MD [address] [place] [phone] PCP - General Family Medicine 05/22/25 documented as of this encounter Additional Source Comments The information contained in this document represents components of the legal health record. It is not the complete legal health record.[facility]
--- OUTSIDE RECORDS SUMMARY | 2025-06-15 18:16 | XMS_ITS | Clinical Summary ---
Author Organization [facility] Address [address], [place] [address] Care Team Providers Care [employer] Truck Driver Name Role Phone Unavailable Primary Care Provider [...]
--- OUTSIDE RECORDS SUMMARY | 2025-06-15 18:16 | XMS_ITS | Clinical Summary ---
Author Organization [facility] Address [address] [address] Phone Care Team Providers Care [employer] Driver Name Role Phone Bhargav Pavon MD Primary Care Provider Allergies Active Allergy Reactions Criticality Noted Date Comments Azelastine Swelling Medium 07/21/2024 Eye swelling Other 05/23/2025 Tomato sauce Penicillins Rash Low 04/27/2024 Sulfa (Sulfonamide Antibiotics) Hives High 04/04 Medications RIZATRIPTAN BENZOATE (MAXALT ORAL) prn Active IBUPROFEN/PSEU DOEPHEDRINE HCL (ADVIL COLD AND SINUS ORAL) as needed. Active CETIRIZINE HCL (ZYRTEC ORAL) Take 10 mg by mouth daily. prn Active dextroamphetam ine-amphetamin e (ADDERALL) 20 mg Tab tablet Orally Twice a day Active EPINEPHRINE (EPIPEN INJ) prn Active albuterol 90 mcg/actuation inhaler Inhale 2 puffs into the lungs every 6 (six) hours as needed. 06/22/20 24 Active fluticasone propionate (FLONASE) 50 mcg/actuation nasal spray 1 spray by Nasal route as needed for rhinitis. Active ibuprofen (ADVIL,MOTRIN) 200 MG tablet Take 400-800 mg by mouth every 6 (six) hours as needed. Active diclofenac sodium (VOLTAREN) 1 % Gel Apply 2 g topically as needed. Neck and hands Active CAPLYTA 21 mg capsule Take 21 mg by mouth daily. Active cyclobenzaprin e (FLEXERIL) 5 MG tabletIndicati ons:Rheumatoid arthritis involving multiple sites with positive rheumatoid factor,Long-te rm use of Plaquenil,NSAI D long-term use Take 1 tablet (5 mg total) by mouth nightly at bedtime. 90 tablet 1 01/05/20 25 Active loperamide (IMODIUM) 2 mg capsule Take 2 mg by mouth 4 (four) times a day as needed. 07/21/20 24 Active gabapentin (NEURONTIN) 300 MG capsuleIndicat ions:Rheumatoi d arthritis involving multiple sites with positive rheumatoid factor,Long-te rm use of Plaquenil,NSAI D long-term use Take 1 capsule (300 mg total) by mouth 2 (two) times a day. 180 capsule 1 04/21/20 25 Active hydroxychloroq uine (PLAQUENIL) 200 mg tabletIndicati ons:Rheumatoid arthritis involving multiple sites with positive rheumatoid factor Take 1 tablet (200 mg total) by mouth daily. with food or milk 90 tablet 1 04/21/20 25 Active alendronate (FOSAMAX) 70 MG tablet Active benzonatate (TESSALON) 100 MG capsule Active diazePAM (VALIUM) 5 MG tablet 02/14/20 25 Active vilazodone (VIIBRYD) 20 mg Tab 40mg 05/31/20 25 Active oxyCODONE 5 MG immediate release tablet Take 1 tablet by mouth every 12 hours as needed for pain. Patient may request partial fill. 8 tablet 06/12/20 25 Active vilazodone (VIIBRYD) 20 mg Tab Take by mouth daily. 025 Discontinued oxyCODONE 5 MG immediate release tablet Take 1-2 tablets by mouth every 4-6 hours as needed for pain. Patient may request partial fill. 15 tablet 05/31/20 25 025 Discontinued oxyCODONE 5 MG immediate release tabletIndicati ons:Status post wrist surgery Take 1 tablet (5 mg total) by mouth every 4 (four) hours as needed for pain (specific location in comments) (Right wrist). Partial fill ok 12 tablet 06/02/20 25 025 Discontinued(Re order) oxyCODONE 5 MG immediate release tabletIndicati ons:Status post wrist surgery Take 1 tablet (5 mg total) by mouth every 4 (four) hours as needed for pain (specific location in comments) (Right wrist). Partial fill ok 12 tablet 06/05/20 25 025 Discontinued Active Problems Problem Noted Date Diagnosed Date Neck pain 04/21/2025 Arthropathy of cervical facet joint 04/21/2025 Assessment & Plan (05/02/2025 3:05 PM EDT): Due to mild upper cervical facet arthrosis and multilevel uncovertebral arthrosis without canal or foraminal stenosis or neural element impingement & ongoing cervical pain & stiffness I gave her referral to [facility] for further management. Proper posture and neck support during the day and for nighttime. Avoid prolonged bending, rotating, sudden turns and prolonged extension. Warm pack versus warm shower followed by topical Voltaren, Arnica versus medicated patches such as Salonpas or IcyHot patch Gentle, regular ROM, stretching and muscle strengthening exercises-examples with pictures and detailed instructions printed for home use today. Rheumatoid arthritis involvi ng multiple sites with positive rheumatoid factor 09/12/2024 Assessment & Plan (05/02/2025 3:00 PM EDT): Clinically stable within right wrist & carpal region with stiffness in the cervical spine that may be reflective inflammatory component seen in patients with seropositive rheumatoid arthritis. Carefully continue Plaquenil 200 mg daily along with Flexeril 5 mg daily as needed and gabapentin 300 mg twice daily. See design transferrer in follow-up on 04/22/2025 in view of 9th year of Plaquenil therapy that puts her at an increased risk for ophthalmologic complications. Continue joint protection, energy conservation, splinting and assistive devices to reduce pain, stiffness, swelling and continue optimal function. Due to ongoing neck stiffness and pain I provided her with formal referral to [facility] to address it Call if problems or questions. Assessment & [...] in writing. Provider: Tess Vasquez MD Patient: Graciela Thapa : 1970 Date: 10/10/2024 Carefully continue Plaquenil [...] use of Plaquenil 09/12/2024 Assessment & Plan (05/02/2025 3:08 PM EDT): Avoid sunburns by using daily sun protection particularly during spring and summer months or while traveling to [place] [employer]. Due to her running out of Plaquenil supply at home because she previously always took it twice daily she ran out of the supply prescribed to her in September 2024 when I decreased the daily dose to once daily until I see reassuring ophthalmologic checkup. She has a ophthalmologic visit scheduled for 04/26/2025. Assessment & Plan (01/17/2025 9:48 AM EDT): Reminded to get checkup within the next weeks and avoid sunburns by using daily sun protection particularly during spring and summer months or while traveling to [facility] for [employer]. Due to her running out of Plaquenil supply at home because she previously always took it twice daily she ran out of the supply prescribed to her in September 2024 when I decreased the daily dose to once daily until I see reassuring ophthalmologic checkup. I have re-sent prescription and above explanation to her pharmacy and tried talking to the pharmacist directly by [phone] though I waited 5 minutes unable to reach anyone. Assessment & Plan (12/12/2024 3:26 PM EDT): Reminded to make ophthalmologic checkup and avoid sunburns by using daily sun protection particularly during spring and summer months or while traveling to [facility] [place]. Assessment & Plan (10/10/2024 10:55 AM EDT): Reminded to make ophthalmologic checkup and avoid sunburns by using daily sun protection particularly during spring and summer months or while traveling to [facility] for [facility]. Assessment & Plan (09/13/2024 11:59 AM EST): Reminded to make ophthalmologic checkup and avoid sunburns by using daily sun protection particularly during spring and summer months or while traveling to [facility] for [facility]. NSAID long-term use 09/12/2024 Assessment & Plan [...] 3:26 PM EDT): Continue close follow-up with tuck pointer helper as scheduled. Assessment & Plan (01/16/2025 12:17 PM EDT): Continue close follow-up with tuck pointer helper as scheduled. Assessment & Plan (12/12/2024 3:26 PM EDT): Continue close follow-up with tuck pointer helper as scheduled. Assessment & Plan (09/13/2024 11:59 AM EST): Continue close follow-up with tuck pointer helper as scheduled. Chronic use of opiate drug [...] venous Reclast-see details in rheumatology therapy plans, [facility] infusion center referral and patient instruction section [...] venous Reclast-see details in rheumatology therapy plans, [facility] infusion center referral and patient instruction section [...] Encounters Date Type Department Care Team Description 06/12/2025 Telephone [facility] Orthopedics & Sports Medicine [address] [place] [phone] Leigh Lemus, MARGO Symptom Management 06/07/2025 Orders Only [facility] Rheumatology [address] [place] [address] Tess Vasquez MD 06/07/2025 Telephone [facility] Rheumatology [address] [place] [address] Tess Vasquez MD osteoporosis medication 06/06/2025 11:45 AM EST Office Visit [facility] Medicine [address] [place] [phone] Tess Jimenez MD Status post wrist surgery (Primary Dx) 06/05/2025 Plan of Care Documentation [facility] [address] [place] [address] 06/05/2025 Telephone [facility] Orthopedics & [facility] Medicine [address] [place] [phone] Leigh Lemus, MARGO Symptom Management 06/02/2025 3:45 PM EDT Office Visit [facility] [address] [place] [address] Tess Jimenez MD McCullough, Sheila, OT Right hand pain (Primary Dx) 06/02/2025 2:20 PM EDT Office Visit [facility] Orthopedics & Sports [address] [address] Vidhya Doyle PA-C Status post wrist surgery (Primary Dx) 05/31/2025 10:50 AM EDT - 05/31/2025 12:44 PM EDT Surgery OR Admitting Dept - Virtual Department [address] [place] [phone] Tess Jimenez MD RIGHT EXCISION WITH FOUR CORNER FUSION SCAPHOID WRIST 05/31/2025 10:40 AM EDT Anesthesia Event OR Admitting Dept - Virtual Department [address] [place] [phone] Priti Jean MD 05/31/2025 9:05 AM EDT - 05/31/2025 2:28 PM EDT Hospital Encounter OR Admitting Dept - Virtual Department [address] [place] [phone] Tess Jimenez MD Discharge Disposition: Home or Self Care 05/31/2025 Procedure Pass OR Admitting Dept - Virtual Department [address] [place] [phone] 05/30/2025 8:30 AM EDT Pre-Admission Testing Pre Procedure Evaluation [address] [place] [phone] Tess Jimenez MD 05/30/2025 Prep for Surgery [facility] [address] [place] [phone] Tess Jimenez MD 05/22/2025 12:15 PM EDT Office Visit [facility] Medicine [address] [place] [phone] Tess Jimenez MD 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) 05/04/2025 1:27 PM EDT - 05/04/2025 11:59 PM EDT Hospital Encounter [address] [address] Tess Jimenez MD Discharge Disposition: Home or Self Care 05/01/2025 1:04 PM EDT - 05/01/2025 11:59 PM EDT Hospital Encounter [address] [address] Tess Jimenez MD Discharge Disposition: Home or Self Care 05/01/2025 12:45 PM EDT Office Visit [facility] Medicine [address] [place] [phone] Tess Jimenez MD Right wrist pain (Primary Dx); 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 05/01/2025 Procedure Pass [address] [address] 04/21/2025 2:30 PM EDT Office Visit [facility] Rheumatology [address] [place] [address] [place] [address] Tess Vasquez MD Rheumatoid arthritis involving multiple sites with positive rheumatoid factor (Primary Dx); Long-term use of Plaquenil; NSAID long-term use; Age-related osteoporosis without current pathological fracture; CVID (common variable immunodeficiency); Arthropathy of cervical facet joint 03/24/2025 Telephone [facility] Rheumatology [address] [place] [address] [place] [address] Tess Vasquez MD Referral Question from Last 3 Months Immunizations Immunization Administration Dates Next Due Tdap 02/11/2025 Tetanus Immune Globulin 02/12/2025 Social History Tobacco Use Types Packs/Day Years Used Date Smoking Tobacco: Former Cigarettes Smokeless Tobacco: Never Tobacco Cessation:Counseling Given: Not Answered Comments:Quit 2020 Alcohol Use Standard Drinks/Week Comments [...] Sign Reading Time Taken Comments Blood Pressure 136/79 05/31/2025 2:15 PM EDT Pulse 88 05/31/2025 2:15 PM EDT Temperature 36.3 C (97.3 F) 05/31/2025 2:15 PM EDT Respiratory Rate 17 05/31/2025 2:15 PM EDT Oxygen Saturation 97% 05/31/2025 2:15 PM EDT Inhaled Oxygen Concentration - - Weight 64.4 kg (142 lb) 05/31/2025 9:25 AM EDT Height 168.9 cm (5' 6.5 ) 05/31/2025 9:25 AM EDT Body Mass Index 22.58 05/31/2025 9:25 AM EDT Plan of Treatment Upcoming Encounters Date Type Department Care Team (Late st Contact Info) Description 06/20/2025 8:45 AM EST Office Visit [facility]ics [facility] Sports Medicine [address] [place] [phone] Tess Jimenez MD [address] [place] [address] Orthopedics & Sports Medicine, [place] [address] 06/20/2025 4:45 PM EST Appointment [facility] [place], Bone Density - [address] [address] Tess Vasquez MD [address] [place] [phone] [email or web address] 08/23/2025 4:30 PM EST Office Visit [facility] Rheumatology [address] [place] [phone] Tess Vasquez MD [address] [place] [address], [address] [address] [email or web address] Health Maintenance Due Date Last Done Comments LIPID PANEL 1969 DEPRESSION SCREENING 1981 SMOKING Hx and SMOKELESS TOB ACCO SCREENING 1982 HEPATITIS C SCREENING 1987 HIV ONE-TIME SCREENING (18-6 5 YEARS) 1987 PNEUMOCOCCAL VACCINES (50+ y ears) (1 of 2 - PCV) 1988 ZOSTER VACCINES (1 of 2) 1988 PAP SMEAR 1990 MAMMOGRAM 2009 COLOGUARD 2014 COLONOSCOPY 2014 COLORECTAL CANCER SCREENING 2014 FIT TEST 2014 FOBT 2014 SIGMOIDOSCOPY 2014 VIRTUAL COLONOSCOPY 2014 RSV VACCINE (1 - Risk 50-74 years 1-dose series) 2019 INFLUENZA VACCINE (#1) 2025 COVID-19 VACCINE ( - 2024-2 6 season) 2025 Adult Td,Tdap Booster 02/11/2035 02/11/2025 HEPATITIS A VACCINES Aged Out No long er eligible based on patient's age to complete this topic HIB VACCINES Aged Out No longer eligi ble based on patient's age to complete this topic IPV VACCINES Aged Out No longer eligi ble based on patient's age to complete this topic MENINGOCOCCAL VACCINES (ACWY) Aged Out No longer eligible based on patient's age to complete this topic MENINGOCOCCAL VACCINES (B) Aged Out N o longer eligible based on patient's age to complete this topic Medical Devices Implanted Type Area Hand Outside Cutter Device Identifier Shelf Expiration Date Model / Serial / Lot Instrument Easyfuse Packmid / Hindfoot - [id number] Implanted:Qty: 1 on 05/31/2025 by Tess Jimenez MD at [facility] [place] Right: Wrist [employer] [id number] 12/20/2032 [id number] / / [id number] Easyfuse Dynamic Compression System 2-Leg Staple Implanted:Qty: 1 on 05/31/2025 by Tess iJmenez MD at [facility] [place] Right: Wrist OWEN 09/15/2032 [id number] / / [id number] Description:REF:[id number] Autofix 2.0-2.5 Headless Screw 2.0 X 26 Implanted:Qty: 2 on 05/31/2025 by Tess Jimenez MD at [facility] [place] Right: Wrist [id number] 20-26 / / Description:REF:[id number] 20-2 6 [employer] 2.0-2.5 Headless Screw 2.0 X 24 Implanted:Qty: 1 on 05/31/2025 by Tess Jimenez MD at [facility] [place] Right: Wrist [id number] 2.0 X 24 / / Description:REF: [id number] 2.0 X 24 Allomatrix C Bone Putty With Dbm And Cancellous Bone Chips Implanted:Qty: 1 on 05/31/2025 by Tess Jimenez MD at [facility] [place] Right: Wrist 04/14/2029 [id number] / [id number] / Description:REF:[id number] TOTAL VOLUME 5CC Procedures Procedure Name Priority Date/Time Associated Diagnosis Comments ANES BLOOD PATCH PERFORMABLE Routine 05/31/2025 1:35 PM EDT [place] ANESTHESIA PERIPHERAL BLOCK PLACEHOLDER Routine 05/31/2025 1:35 PM EDT AIRWAY PLACEMENT Routine 05/31/2025 10:4 3 AM EDT AZ FUSION/GRAFT INTERCARPAL 05/31/2025 10:40 AM EDT Preiser's scaphoid aseptic necrosis, right URINE HCG STAT 05/31/2025 9:15 AM EDT ANATOMIC PATHOLOGY Routine 05/31/2025 12 :00 AM EDT MRI WRIST WITHOUT CONTRAST (RIGHT) Routine 05/04/2025 2:16 PM EDT 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 XR WRIST 3 OR MORE VIEWS (RIGHT) Routine 05/01/2025 1:11 PM EDT Right wrist pain from Last 3 Months Results * [place] ANESTHESIA PERIPHERAL BLOCK PLACEHOLDER, ANES BLOOD PATCH PERFORMABLE (05/31/2025 1:35 PM EDT) Narrative Priti Jean MD - 05/31/2025 1:35 PM EDT Priti Jean MD 05/31/2025 1:55 PM Peripheral Block Placement Procedure Note: Start Time: 05/31/2025 1:35 PM Stop Time:05/31/2025 1:47 PM Reason for block: at patient's request and post op pain managment Block performed by: anesthesiologist and other anesthesia staff Anesthesiologist: Priti Jean MD Fellow/Resident/CONSTRUCTION DRIVER: Rohit Rosa MD [place] Protocol Performed: consent obtained, patient identified with 2 identifiers, correct procedure verified, correct site and laterality confirmed, verified equipment, coagulation status reviewed and implant history reviewed. Procedure Details: ASA monitors applied during procedure and vitals signs recorded in nursing flowsheet during procedure. Block type: single shot Laterality: right Block location: upper extremity and axillary brachial plexus Patient position: sitting Prep: chloraprep Image guidance: ultrasound guidance Ultrasound image: not saved Needle visualization: good Nerve visualization: good Block Technique Block technique: ultrasound guided non-stimulating needle used Needle gauge: 22 Injection assessment:incremental injection and negative aspiration for heme Paresthesia: none Post Block Placement Assessment Complications Observed: No Priti Jean MD [place] ANESTHESIA Final Res ult * ANES ETT DOUBLE LUMEN - AIRWAY LDA (05/31/2025 10:43 AM EDT) Narrative Rogelio Thao CRNA - 05/31/2025 10:43 AM EDT Rogelio Thao CRNA 05/31/2025 10:49 AM Airway Placement Procedure Note: Procedure performed by: fellow/resident/CONSTRUCTION DRIVER Anesthesiologist: Priti Jean MD Fellow/Resident/CONSTRUCTION DRIVER: Rogelio Thao CRNA Airway procedure initiated at:05/31/2025 10:43 AM and ended at. Personal Protective Equipment: Mask: surgical mask Gloves: gloves Mask Ventilation: Quality: not attempted Airway Placement: Technique: LMA LMA Insertion: LMA size: 3 LMA type: flexible LMA placement attempts: 1. Outcomes: Evidence of dental injury? no Complications observed? no Priti Jena MD [place] ANESTHESIA Final Res ult * HCG, urine (05/31/2025 9:15 AM EDT) URINE TEST Negative Negative [facility] Urine (Urine) 05/31/2025 9:1 5 AM EDT 05/31/2025 9:19 AM EDT Tess Jimenez MD LAB URINE ORDERABLES Final Re sult [address] [address] * Anatomic Pathology (05/31/2025 12:00 AM EDT) 05/31/2025 05/31/2025 3:2 3 PM EDT Narrative SEE NARRATIVE - 06/02/2025 3:10 PM EDT [address] [address] Supervisor [place] Department: Nicolas Gamez MD Surgical Pathology Report FINAL PATHOLOGIC DIAGNOSIS: BONE, RIGHT SCAPHOID, EXCISION: Benign bone with avascular necrosis. Electronically Signed Out By Liane Ray MD By his/her signature above, the pathologist listed as making the Final Diagnosis certifies that he/she has personally reviewed this case and confirmed or corrected the diagnosis. 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 Taximeter Repairer sections are submitted in a single cassette labeled A1 following decalcification. Grossed by: PRANAV Garcia, ANU([facility]) [id number] 05/31/2025 Grossing Staff: [id number] Patient Name: GRACIELA THAPA : 1970 (Age: 54) Sex: F [facility] Date of Operation: 05/31/2025 Date of Reported: 06/02/2025 15:10 Results To: Tess Pavon MD us Tess Jimenez MD LAB PATHOLOGY ORDERABLES Jolly calles Result SEE NARRATIVE * MRI WRIST WITHOUT CONTRAST (RIGHT) (05/04/2025 2:16 PM EDT) Anatomical Region Laterality Modality Wrist Right Magnetic Resonan ce 05/08/2025 11:4 9 AM EDT Impressions 05/08/2025 12:06 PM EDT 1. Avascular necrosis of the scaphoid, most marked proximally with associated collapse. Findings are similar in appearance to right wrist radiographs 05/01/2025, progressed compared to right hand radiographs 04/27/2024. 2. Widening of the scapholunate interval with nonvisualization of the scapholunate ligaments, possibly torn. Dorsal tilt of the lunate. 3. Trace fluid within the second and third dorsal compartment tendon sheaths at the intersection, may be seen in the setting of intersection syndrome. 4. Trace distal radial ulnar joint effusion. Narrative 05/08/2025 12:06 PM EDT MRI WRIST WITHOUT CONTRAST (RIGHT) Referring clinician's provided indication for this examination in [facility]: * Joint effusion, wrist; Preisers disease TECHNIQUE: Multi-sequence, multi-planar MRI of the wrist without intravenous contrast. COMPARISON: Right wrist radiographs 05/01/2025, right hand radiographs 04/27/2024 FINDINGS: Ulnar wrist: The triangular fibrocartilage complex appears grossly intact. There is mild ulnar negative variance. Muscles/tendons: The muscles demonstrate normal morphology and signal. The flexor and extensor tendons are intact. There is trace fluid within the second and third dorsal compartment tendon sheaths at the intersection. Ligaments: The scapholunate ligaments are not well visualized and possibly torn. Nerves: The median and ulnar nerves are unremarkable. Bones/joints: There is avascular necrosis of the scaphoid, most marked proximally with associated collapse. There is diffuse edema within the radial aspect of the distal radius, lunate, capitate, and hamate, likely reactive/degenerative. There is widening of the scapholunate interval. There is dorsal tilt of the lunate. There is no evidence of acute fracture or dislocation. There is a trace distal radial ulnar joint effusion. Procedure Note Bianka Jimenez MD - 05/08/2025 MRI WRIST WITHOUT CONTRAST (RIGHT) Referring clinician's provided indication for this examination in [facility]: *Joint effusion, wrist; Preisers disease TECHNIQUE: Multi-sequence, multi-planar MRI of the wrist withoutintravenous contrast. COMPARISON: Right wrist radiographs 05/01/2025, right hand radiographs04/27/2024 FINDINGS: Ulnar wrist: The triangular fibrocartilage complex appears grossly intact.There is mild ulnar negative variance. Muscles/tendons: The muscles demonstrate normal morphology and signal. Theflexor and extensor tendons are intact. There is trace fluid within thesecond and third dorsal compartment tendon sheaths at the intersection. Ligaments: The scapholunate ligaments are not well visualized and possiblytorn. Nerves: The median and ulnar nerves are unremarkable. Bones/joints: There is avascular necrosis of the scaphoid, most markedproximally with associated collapse. There is diffuse edema within theradial aspect of the distal radius, lunate, capitate, and hamate, likelyreactive/degenerative. There is widening of the scapholunate interval.There is dorsal tilt of the lunate. There is no evidence of acute fractureor dislocation. There is a trace distal radial ulnar joint effusion. IMPRESSION: 1. Avascular necrosis of the scaphoid, most marked proximally withassociated collapse. Findings are similar in appearance to right wristradiographs 05/01/2025, progressed compared to right hand radiographs04/27/2024. 2. Widening of the scapholunate interval with nonvisualization of thescapholunate ligaments, possibly torn. Dorsal tilt of the lunate. 3. Trace fluid within the second and third dorsal compartment tendonsheaths at the intersection, may be seen in the setting of intersectionsyndrome. 4. Trace distal radial ulnar joint effusion. Tess TORRES MR EXTREMITY Final Result * XR WRIST 3 OR MORE VIEWS (RIGHT) (05/01/2025 1:11 PM EDT) Narrative SYSTEMGENERATED, DOCUMENTATION - 05/01/2025 1:11 PM EDT This image report has been auto-finalized and has not been read by a Radiologist. Interpretation has been included in the provider encounter note for this date of service. us Tess TORRES XR UPPER EXTREMITY Final Result from Last 3 Months Insurance MEDICARE PART A & B [place] [facility] [place] B [email or web address] MEDICARE PART A & B Member Subscriber Plan / Payer (Ef fective 2017-Present) Name:Kodi Graciela Member ID:[id number] Relation to Subscriber:Self Name:KodiGraciela Subscriber ID:[id number] Payer ID:[id number] Group ID:Not on file Type:Medicare Address: [employer] [place] [address] [place] [address] [place], [place] [address]HEALTH MEDICARE PART A & B HEALTH MEDICARE PART A & B HEALTH MEDICARE PART A & B [facility] Care Teams Refrigerated Company Driver Relationship Specialty Start Date End Date Bhargav Pavon MD [address] [address] PCP - General Family Medicine 05/22/25 Additional Source Comments The information contained in this document represents components of the legal health record. It is not the complete legal health record.[facility]
--- OUTSIDE RECORDS SUMMARY | 2025-06-15 18:16 | XMS_ITS | Encounter Summary ---
Author Organization [facility] Address [address] [place] [address] [place] [address] Phone Care Team Providers Care Computational Scientist Name Role Phone Hollie Flores PA-C Primary Care Provider [phone] Bhargav Pavon MD Primary Care Provider Encounter Details Date Type Department Care Team (Late Contact Info) Description 05/01/2025 Procedure Pass [facility], [address] [address] Social History Tobacco Use Types Packs/Day Years Used Date Smoking Tobacco: Never Smokeless Tobacco: Never Alcohol Use Standard Drinks/Week [...] Encounters Date Type Department Care Team (Late Contact Info) Description 06/20/2025 8:45 AM EST Office Visit [facility] Orthopedics & Sports Medicine 4 [place] [address] Tess Jimenez MD [address] [place] [address] Orthopedics & Sports Medicine, [facility] [place] [address] 06/20/2025 4:45 PM EST Appointment [facility], Bone Density - [address] [address] Tess Vasquez MD [address] [place] [address], [address] [address] [email or web address] 08/23/2025 4:30 PM EST Office Visit [facility] Rheumatology [address] [place] [address] Tess Vasquez MD [address] [place] [address] [email or web address] documented as of this encounter Visit Diagnoses Not on filedocumented in this encounter Care Teams Computational Scientist Relationship Specialty Start Date End Date Hollie Flores PA-C [address] [place] [address] PCP - General Physician Criminal Defense Lawyer 01/03/25 05/21/25 Bhargav Pavon MD [address] [place] [address] PCP - General Family Medicine 05/22/25 documented as of this encounter Additional Source Comments The information contained in this document represents components of the legal health record. It is not the complete legal health record.[facility]
--- OUTSIDE RECORDS SUMMARY | 2025-06-15 18:16 | XMS_ITS | Encounter Summary ---
Author Organization [facility] Address [address] [place] [address] Care Team Providers Care Kosher Sealer Name Role Phone Kesha Lopez MD Primary Care Provider [phone] Encounter Details Date Type Department Care Team (Late st Contact Info) Description 07/14/2024 Scanned Document [facility] [address] [place] [address] [address] [place] [address] Kesha Lopez MD [address] [place] [address] [address] [place] [address] Social History Tobacco Use Types Packs/Day Years [...] on filedocumented in this encounter Care Teams Kosher Sealer Relationship Specialty Start Date End Date Kesha Lopez MD [address] [place] [address] [address] [place] [address] PCP - General Internal Medicine 06/22/24 documented as of this encounter
--- OUTSIDE RECORDS SUMMARY | 2025-06-15 18:16 | XMS_ITS | Encounter Summary ---
Author Organization [facility] Address [address] [place] [address] Care Team Providers Care Scouring Train Operator Name Role Phone Kesha Lopez MD Primary Care Provider [phone] Encounter Details Date Type Department Care Team (Late st Contact Info) Description 09/14/2024 Scanned Document [facility] [address] [place] [address] [address] [place] [address] Kesha Lopez MD [address] [place] [address] [address] [place] [address] Social History Tobacco Use Types Packs/Day Years [...] on filedocumented in this encounter Care Teams Scouring Train Operator Relationship Specialty Start Date End Date Kesha Lopez MD [address] [place] [address] [address] [place] [address] PCP - General Internal Medicine 06/22/24 documented as of this encounter
--- OUTSIDE RECORDS SUMMARY | 2025-06-15 18:16 | XMS_ITS | Encounter Summary ---
Author Organization [facility] Address [address] [place] [address] [place] [address] Phone Care Team Providers Care Seaman Name Role Phone Bhargav Pavon MD Primary Care Provider Encounter Details Date Type Department Care Team ([facility] Contact Info) Description 05/30/2025 Prep for Surgery [facility] Orthopedics & Sports Medicine [address] [place] [address] Tess Jimenez MD [address] [place] [address] Orthopedics & Sports Medicine, [facility] [place] [address] Social History Tobacco Use Types Packs/Day Years [...] tries to control you? No 05/31/2025 Comments Unknown Sex and Gender Information Value Date Recorded Sex Assigned at Not on file Legal Sex Female 9:36 PM EDT Gender Identity Not on file Sexual Orientation Not on file documented as of this encounter Plan of Treatment Upcoming Encounters Date Type Department Care Team (Late st Contact Info) Description 06/20/2025 8:45 AM EST Office Visit [facility] Orthopedics & Sports Medicine [address] [place] [address] Tess Jimenez MD [address] [place] [address] Orthopedics & Sports Medicine, [place] [address] 06/20/2025 4:45 PM EST Appointment [facility], Bone Density - [address] [address] Tess Vasquez MD [address] [place] [address] [email or web address] 08/23/2025 4:30 PM EST Office Visit [facility] Rheumatology [address] [place] [address] Tess Vasquez MD [address] [place] [address], [address] [address] [email or web address] documented as of this encounter Visit Diagnoses Not on filedocumented in this encounter Care Teams Seaman Relationship Specialty Start Date End Date Bhargav Pavon MD [address] [place] [address] PCP - General Family Medicine 05/22/25 documented as of this encounter Additional Source Comments The information contained in this document represents components of the legal health record. It is not the complete legal health record.[facility]
--- OUTSIDE RECORDS SUMMARY | 2025-06-15 18:16 | XMS_ITS | Clinical Summary ---
Author Organization [facility] Address [address] [place] [address] Care Team Providers Care Bucket Wash Operator Name Role Phone Kesha Lopez MD [...] (Ages 21-65) 1990 Mammogram 2009 Colonoscopy 2014 RSV Vaccine 50 years and old er and Patients (1 - Risk 50-74 years 1-dose series) 2019 Influenza Vaccine 03/03/2025 Controlled Substance Agreeme nt Initial and Annual Review Discontinued 06/22/2024 Insurance MEDICARE PART A & B MEDICARE PART A & B Member Subscriber Plan / Payer (Ef fective 2017-Present) Name:Vannessa Mariee Member ID:[id number] Relation to Subscriber:Self Name:Vannessa Mariee Subscriber ID:[id number] Payer ID:[id number] Group ID:Not on file Type:Not on file Address: [address] MEDICARE PART A & B MEDICARE PART A & B Care Teams Bucket Wash Operator Relationship Specialty Start Date End Date Kesha Lopez MD [address] [facility] [address] [place] [address] PCP - General Internal Medicine 06/22/24
--- OUTSIDE RECORDS SUMMARY | 2025-06-15 18:17 | XMS_ITS | Encounter Summary ---
Author Organization [facility] Address [address] [place] [address] Care Team Providers Care Energy Rater Name Role Phone Kesha Lopez MD Primary Care Provider [phone] Encounter Details Date Type Department Care Team (Late st Contact Info) Description 06/27/2024 Scanned Document [facility] [address] [place] [address] [address] [place] [address] Kesha Lopez MD [address] [place] [address] [address] [place] [address] Social History Tobacco Use Types Packs/Day Years [...] on filedocumented in this encounter Care Teams Energy Rater Relationship Specialty Start Date End Date Kesha Lopez MD [address] [place] [address] [address] [place] [address] PCP - General Internal Medicine 06/22/24 documented as of this encounter
--- OUTSIDE RECORDS SUMMARY | 2025-06-15 18:17 | XMS_ITS | Encounter Summary ---
Author Organization [facility] Address [address] [place] [address] [place] [address] Phone Care Team Providers Care Funeral Service Apprentice Name Role Phone Bhargav Pavon MD Primary Care Provider Reason for Visit * Reason Onset Date Comments Symptom Management 06/12/2025 Encounter Details Date Type Department Care Team ([facility] st Contact Info) Description 06/12/2025 Telephone [facility] Orthopedics & Sports Medicine 4 [place] [address] Leigh Lemus, RN [address] [place] [address] [email or web address] Symptom Management Social History Tobacco Use Types Packs/Day Years [...] on file documented as of this encounter Progress Notes * Leigh Lemus RN - 06/13/2025 11:14 AM EST Pt contacted by this nurse and informed that the requested refill has been submitted to the pharmacy. Pt is taking 1/2 tablet for breakthrough pain. Pt verbalized understanding. * Emi Burgos PA-C - 06/12/2025 6:07 PM EST 8 tablets sent to pharmacy, one tablet every 12 hours. Thanks * Leigh Lemus RN - 06/12/2025 10:58 AM EST Images from the original note were not included. Pt is S/P right scaphoid excision, capitolunate fusion 05/31/25. Pt reports ongoing difficulty with pain management. She is elevating frequently and using cold therapy around the casted area. She reports she is not overdoing it with her right arm and is using her left arm for most tasks. Pt educated edema can wax and wane for weeks. She reports taking Tylenol 1000 mg every 4 hours and was educated that this is over the daily max recommended dose. She will cut back to TID. She states she is taking Advil 600 mg every 8 hours but is not consistent with this due to GI upset. She requests a prescription as the Tylenol, even at the stated high dose, isn't doing anything to relieve the pain. [facility] verified and pasted below. Rx not pended, not sure if there will be a medication change. documented in this encounter Plan of Treatment Upcoming Encounters Date Type Department Care Team (Late st Contact Info) Description 06/20/2025 8:45 AM EST Office Visit [facility] Orthopedics & Sports Medicine [address] [place] [address] Tess Jimenez MD [address] [place] [address] Orthopedics & Sports Medicine, [place] [address] 06/20/2025 4:45 PM EST Appointment [facility], Bone Density - [address] [address] Tess Vasquez MD [address] [place] [address] [email or web address] 08/23/2025 4:30 PM EST Office Visit [facility] Rheumatology [address] [place] [address] Tess Vasquez MD [address] [place] [address] [email or web address] documented as of this encounter Visit Diagnoses Not on filedocumented in this encounter Care Teams Funeral Service Apprentice Relationship Specialty Start Date End Date Bhargav Pavon MD [address] [place] [address] PCP - General Family Medicine 05/22/25 documented as of this encounter Additional Source Comments The information contained in this document represents components of the legal health record. It is not the complete legal health record.[facility]
--- OUTSIDE RECORDS SUMMARY | 2025-06-15 18:17 | XMS_ITS | Encounter Summary ---
Author Organization [facility] Address [address] [place] [address] Care Team Providers Care New Vehicle Sales Consultant Name Role Phone Kesha Lopez MD Primary Care Provider Encounter Details Date Type Department Care Team (Late st Contact Info) Description 07/06/2024 Scanned Document [facility] [address] [place] [address] [address] [place] [address] Kesha Lopez MD [address] [place] [address] [address] [place] [address] Social History Tobacco Use Types Packs/Day Years [...] on filedocumented in this encounter Care Teams New Vehicle Sales Consultant Relationship Specialty Start Date End Date Kesha Lopez MD [address] [place] [address] [address] [place] [address] PCP - General Internal Medicine 06/22/24 documented as of this encounter
--- OUTSIDE RECORDS SUMMARY | 2025-06-15 18:17 | XMS_ITS | Encounter Summary ---
Author Organization [facility] Address [address] [facility] [address] [place] [address] Phone Care Team Providers Care Liquor Stores And Agencies Supervisor Name Role Phone Bhargav Pavon MD Primary Care Provider Encounter Details Date Type Department Care Team (Late st Contact Info) Description 06/07/[address] [facility] Rheumatology [address] [place] [address] Tess Vasquez MD [address] [facility], [address] [place] [address] [email or web address] Social History Tobacco Use Types Packs/Day Years [...] Description 06/20/2025 8:45 AM EST Office Visit [facility] Orthopedics & Sports Medicine [address] [place] [address] Tess Jimenez MD [address] [place] [address] Orthopedics & Sports Medicine, [place] [address] 06/20/2025 4:45 PM EST Appointment [facility], Bone Density - [address] [address] Tess Vasquez MD [address] [place] [address] [email or web address] 08/23/2025 4:30 PM EST Office Visit [facility] Rheumatology [address] [place] [address] Tess Vasquez MD [address] [place] [address], [address] [address] [email or web address] documented as of this encounter Visit Diagnoses Not on filedocumented in this encounter Care Teams Liquor Stores And Agencies Supervisor Relationship Specialty Start Date End Date Bhargav Pavon MD [address] [place] [address] PCP - General Family Medicine 05/22/25 documented as of this encounter Additional Source Comments The information contained in this document represents components of the legal health record. It is not the complete legal health record.[facility]
--- OUTSIDE RECORDS SUMMARY | 2025-06-15 18:17 | XMS_ITS | Encounter Summary ---
Author Organization [facility] Address [address] [place] [address] Care Team Providers Care Straight Edger Name Role Phone Kesha Lopez MD Primary Care Provider [phone] Encounter Details Date Type Department Care Team (Late st Contact Info) Description 06/27/2024 Scanned Document [facility] [address] [place] [address] [address] [place] [address] Kesha Lopez MD [address] [place] [address] [address] [place] [address] Social History Tobacco Use Types Packs/Day Years [...] on filedocumented in this encounter Care Teams Straight Edger Relationship Specialty Start Date End Date Kesha Lopez MD [address] [place] [address] [address] [place] [address] PCP - General Internal Medicine 06/22/24 documented as of this encounter
--- OUTSIDE RECORDS SUMMARY | 2025-06-15 18:17 | XMS_ITS | Encounter Summary ---
Author Organization [facility] Address [address] [place] [address] Care Team Providers Care News Internship Name Role Phone Kesha Lopez MD Primary Care Provider [phone] Encounter Details Date Type Department Care Team (Late st Contact Info) Description 06/28/2024 Scanned Document [facility] [address] [place] [address] [address] [place] [address] Kesha Lopez MD [address] [place] [address] [address] [place] [address] Social History Tobacco Use Types Packs/Day Years [...] on filedocumented in this encounter Care Teams News Internship Relationship Specialty Start Date End Date Kesha Lopez MD [address] [place] [address] [address] [place] [address] PCP - General Internal Medicine 06/22/24 documented as of this encounter
--- OUTSIDE RECORDS SUMMARY | 2025-06-15 18:17 | XMS_ITS | Encounter Summary ---
Author Organization [facility] Address [address] [place] [address] Care Team Providers Care Rivet Flunky Name Role Phone Kesha Lopez MD Primary Care Provider [phone] Encounter Details Date Type Department Care Team (Late st Contact Info) Description 06/27/2024 Scanned Document [facility] [address] [place] [address] [address] [place] [address] Kesha Lopez MD [address] [place] [address] [address] [place] [address] Social History Tobacco Use Types Packs/Day Years [...] on filedocumented in this encounter Care Teams Rivet Flunky Relationship Specialty Start Date End Date Kesha Lopez MD [address] [place] [address] [address] [place] [address] PCP - General Internal Medicine 06/22/24 documented as of this encounter
--- OUTSIDE RECORDS SUMMARY | 2025-06-15 18:17 | XMS_ITS | Data Portability ---
Author Organization [facility], [facility] Address [address] [place] [address] Assessment No assessment recorded. Plan of Treatment Reminders Order Date Submit Date Provider Last Modified By Organization Details Last Modified Time Details Appointments None recorded. Lab None recorded. Referral None recorded. Procedures None recorded. Surgeries None recorded. Imaging None recorded. Medication Orders hydrocodon e 10 mg-acetami nophen 325 mg tablet 2023 [facility], [address], [place], [id number], 4 13:16:11 hydrocodon e 10 mg-acetami nophen 325 mg tablet 2023 [facility], [address], [place], [id number], 4 14:29:35 hydrocodon e 10 mg-acetami nophen 325 mg tablet 2023 [facility]79352, [address], [place], [id number], 4 14:29:27 Hysingla ER 20 mg tablet, crush resistant, extended release 2023 [facility]86839, [address], [place], [id number], 4 13:16:23 Hysingla ER 20 mg tablet, crush resistant, extended release 2023 024 [facility] #40858, [address], [place], [id number], 4 14:29:22 Hysingla ER 20 mg tablet, crush resistant, extended release 2023 024 [facility] #00239, [address], [place], [id number], 4 14:29:25 hydrocodon e 10 mg-acetami nophen 325 mg tablet 2023 024 [facility] #49322, [address], [place], [id number], 4 11:31:52 hydrocodon e 10 mg-acetami nophen 325 mg tablet 2023 024 [facility] #56092, [address], [place], [id number], 4 11:31:54 hydrocodon e 10 mg-acetami nophen 325 mg tablet 2023 024 [facility]49333, [address], [place], [id number], 4 11:31:51 tramadol ER 100 mg tablet,ext ended release 24 hr 2023 [facility]66849, [address], [place], [id number], 4 11:31:52 Patient TargetsNo targets recorded. Patient Instructions Encounter Date Encounter Id Patient Instructions Last Modified By Organization Details Last Modified Time 09/28/2023 [id number] cervical spondylosis: care instructions [email or web address] Not available 09/28/2023 19:03:18 neck arthritis: exercises rpanganiban Not available 09/28/2023 19:03:18 11/30/2023 [id number] Patient is s/p Diagnostic PCFB with >80% improvement subjectively translating to improved cervical ROM/headache/pain objectively. Secondary to reemergent axial>radicular cervicalgia, without permanent neurologic deficit, worsened with cervical rotation,extension c/w underlying diagnosis of cervical spondylosis, therapeutic blockade was performed. This, too, has provided significant but nonsustained benefit. With refractory pain, cervical radiofrequency will be ordered. Secondary to moderate complexity and to assist with compliance/treatme nt efficacy, UDT will be ordered. No evidence of misuse/abuse/diver lisa. Continue current rehabilitation/med icinal regimen. Continue current medication regimen. Patient is s/p diagnostic/therape utic PLFB with >60% improvement subjectively. This has translated to functional improvement/mobili ty/functional transfers objectively, without evidence of permanent neurologic deficit. Secondary to reemergent axial>radicular LBP c/w underlying diagnosis of lumbar spondylosis, lumbosacral radiofrequency denervation was performed with significant benefit. No new side effects with current medication regimen. [email or web address] Not available 11/30/2023 11:51:30 02/22/2024 [id number] cervical spondylosis: care instructions [email or web address] Not available 02/22/2024 14:29:15 neck arthritis: exercises rpanganiban Not available 02/22/2024 14:29:15 05/16/2024 [id number] acute avulsion fracture with tendinopathy. Touch down weight bearing. Ankle/foot boot placed. Tibial nerve sensory/motor deficits. T/c EMG/NCS. Preventative health measures reviewed extensively. Rehab measures outlined/implement ed. [email or web address] Not available 05/16/2024 15:53:28 Reason for Referral None Reported. Problems Name Problem SNOMED Code Status Onset Date Resolution Date Notes Provider Name and Address Organization Details Recorded Time Chronic pain syndrome 246446650 Active Derek Brand MD [address] [facility] [address], [place], [address], [place] [facility] 4 16:46:10 Neck pain 86854937 Active Derek Brand MD [address] [address], [place], [address], [place] [facility] 4 16:46:10 Osteoarthrosi s involving multiple sites but not designated as generalized 66741712 Active Karley david MD [address] [address], [place], [address], [place] [facility] 4 12:15:05 Cervical spondylosis without myelopathy 174589645 Active Karley david MD [address] [address], [place], [address], [place] [facility] 4 12:15:05 Degeneration of lumbosacral intervertebra l disc 34335182 Active Karley david MD [address] [address], [place], [address], [place] [facility] 4 12:15:05 Chest wall pain 790457065 Active 2020 ANU Barker [address] [address], [place], [address], [facility] 1 11:06:02 Problem Notes None recorded. Procedures Surgical History Date Name Laterality Status Provider Name and Address Organization Details Recorded Time 05/19/20 24 Transforaminal Epidural Steroid Injection With Fluoroscopy completed Karley Martinez MD [address] [address], [place], [address], [facility] 05/19/2024 08:35:02 09/28/19 24 Paraspinous Cervical and Trapezius Trigger Point Steroid Injections completed Karley Martinez MD [address] [address], [place], [address], [facility] 09/28/2023 19:02:59 12/26/19 23 Radiofrequency Ablation completed Karley Martinez MD [address] [address], [place], [address], [facility] 12/25/2022 21:38:52 09/22/19 23 Facet Joint Injection completed Karley Martinez MD [address] [address], [place], [address], [facility] 09/22/2022 13:39:47 07/01/20 18 Joint Injection completed Karley Martinez MD [address] [address], [place], [address], [facility] 07/05/2018 09:12:27 Imaging Results None recorded. Procedure Notes None recorded. Medical Equipment None Reported. Allergies Allergen ID Allergen Name Allergen Category Reaction Reaction Severity Criticality Documentation Date Start Date Code Code System Note Provider Name and Address Organization Details Recorded Time Product containin g penicilli n (product) medicatio n rash Not available Not available 03/19/2017 29298 [id number] SNOMED Kortney Bustos [place], [place] - [facility] 7 11:59:46 74496 Substance with sulfonami de structure and antibacte rial mechanism of action (substanc e) medicatio n hives severe Not available 10/16/2017 39462 8003 SNOMED Charlotte Dorothy null, [place] - [facility] 8 14:10:29 Medications Name Sig Start Date Stop Date Status Note LastModified by Organization Details LastModified Time b eczema 1 APPLY TO THE AFFECTED AREA(S) 1-2 TIMES DAILY FOR 2 WEEKS ON, THEN 2 WEEKS OFF active Not Available Not Available No t Available prednisone 10 mg tablet active Not Available Not Available Not Available doxycycline hyclate 100 mg capsule active Not Available Not Available N ot Available clindamycin HCl 300 mg capsule TAKE ONE CAPSULE BY MOUTH THREE TIMES DAILY active Not Available Not Available Not Available loperamide 2 mg capsule TAKE ONE CAPSULE BY MOUTH EVERY 4 HOURS NEEDED FOR LOOSE STOOL active Not Available Not Available Not Available cetirizine 10 mg tablet TK 1 T PO QD active Not Available Not Available No t Available azithromycin 250 mg tablet TK 2 TS PO FOR 1 DAY THEN TK 1 T PO D FOR 4 DAYS active Not Available Not Available No t Available ibuprofen 800 mg tablet TAKE 1 TABLET BY MOUTH TWICE DAILY WITH FOOD NEEDED FOR PAIN active Not Available Not Available No t Available hydrocodone 5 mg-acetamino phen 325 mg tablet Take 1 tablet every 6 hours by oral route for 28 days. 2023 active Not Available Not Available Not Avai lable methylphenid ate 20 mg tablet TAKE 1 TABLET BY MOUTH EVERY MORNING AND AT NOON active Not Available Not Available No t Available fluocinolone 0.01 % topical cream SAGE EXT AA BID active Not Available Not Available No t Available Avelox 400 mg tablet active Not Available Not Available No t Available meloxicam 15 mg tablet active Not Available Not Available No t Available prednisone 20 mg tablet TAKE 1 TABLET BY MOUTH TWICE DAILY active Not Available Not Available No t Available alendronate 70 mg tablet active Not Available Not Available Not Available rizatriptan 10 mg tablet active Not Available Not Available Not Available prednisone 5 mg tablet Take 1 tablet every day by oral route. active Not Available Not Available No t Available clindamycin HCl 150 mg capsule TAKE 1 CAPSULE BY MOUTH EVERY 6 HOURS active Not Available Not Available No t Available promethazine 6.25 mg-codeine 10 mg/5 mL syrup active Not Available Not Available Not Available sulfamethoxa zole 800 mg-trimethop rim 160 mg tablet active Not Available Not Available Not Available hydrocodone 10 mg-acetamino phen 325 mg tablet Take 1 tablet every 6 hours by oral route as needed for 28 days. active Not Available Not Available No t Available doxycycline monohydrate 100 mg tablet active Not Available Not Available Not Available dextroamphet amine-amphet amine 30 mg tablet TAKE 1 TABLET BY MOUTH EVERY MORNING AND AT NOON active Not Available Not Available No t Available oxycodone-ac etaminophen 10 mg-325 mg tablet active Not Available Not Available Not Available benzonatate 100 mg capsule TAKE 1 TO 2 CAPSULES BY MOUTH THREE TIMES DAILY FOR 10 DAYS NEEDED FOR COUGH active Not Available Not Available No t Available doxycycline monohydrate 100 mg capsule TAKE 1 CAPSULE BY MOUTH TWICE DAILY FOR 10 DAYS active Not Available Not Available No t Available hydrocodone 7.5 mg-acetamino phen 325 mg tablet TAKE 1 TABLET BY MOUTH EVERY 8 HOURS active Not Available Not Available No t Available pantoprazole 40 mg tablet,delay ed release active Not Available Not Available N ot Available mirtazapine 30 mg tablet active Not Available Not Available Not Available dextroamphet amine-amphet amine 20 mg tablet active Not Available Not Available Not Available gabapentin 300 mg capsule TAKE 1 CAPSULE BY MOUTH TWICE DAILY active Not Available Not Available No t Available diclofenac sodium 75 mg tablet,delay ed release active Not Available Not Available N ot Available Proventil HFA 90 mcg/actuatio n aerosol inhaler active Not Available Not Available Not Available azelastine 137 mcg (0.1 %) nasal spray active Not Available Not Available Not Available hydroxychlor oquine 200 mg tablet TAKE 1 TABLET BY MOUTH TWICE DAILY active Not Available Not Available No t Available prednisone 5 mg tablets in a dose pack Take 1 tablet by oral route. 2016 active Not Available Not Available Not Avai lable levofloxacin 500 mg tablet TAKE 1 TABLET BY MOUTH DAILY active Not Available Not Available Not Available levofloxacin 750 mg tablet active Not Available Not Available Not Available zolpidem 10 mg tablet TAKE 1 TABLET BY MOUTH EVERY NIGHT AT BEDTIME active Not Available Not Available No t Available methylpredni solone 4 mg tablets in a dose pack TAKE DIRECTED active Not Available Not Available No t Available fluticasone propionate 50 mcg/actuatio n nasal spray,suspen lisa active Not Available Not Available Not Available risperidone 1 mg tablet TAKE 1/2 TO 1 TABLET BY MOUTH EVERY NIGHT AT BEDTIME active Not Available Not Available No t Available Amphetamine Salt Combo 10 mg tablet active Not Available Not Available Not Available cyclobenzapr ine 5 mg tablet TAKE 1 TO 2 TABLETS BY MOUTH EVERY NIGHT AT BEDTIME NEEDED FOR MUSCLE SPASM active Not Available Not Available No t Available chlorhexidin e gluconate 0.12 % mouthwash active Not Available Not Available No t Available Femhrt Low Dose 0.5 mg-2.5 mcg tablet active Not Available Not Available Not Available tramadol ER 100 mg tablet,exten ded release 24 hr Take 1 tablet twice a day by oral route for 28 days. 2023 active Not Available Not Available Not Avai lable levocetirizi ne 5 mg tablet TK 1 T PO QD active Not Available Not Available No t Available olopatadine 0.6 % nasal spray active Not Available Not Available Not Available diclofenac 1 % topical gel APPLY 2 GRAMS TOPICALLY TO THE AFFECTED AREA FOUR TIMES DAILY active Not Available Not Available Not Available Viibryd 10 mg tablet active Not Available Not Available No t Available Viibryd 40 mg tablet active Not Available Not Available No t Available vilazodone 20 mg tablet TAKE 1 TABLET BY MOUTH EVERY DAY active Not Available Not Available No t Available Sprix 15.75 mg/spray nasal spray [place] 1 spray twice a day by intranasal route as needed. 2019 active Not Available Not Available Not Avai lable EpiPen 2-Chase 0.3 mg/0.3 mL injection, auto-injecto r active Not Available Not Available Not Available Hysingla ER 20 mg tablet, crush resistant, extended release TAKE 1 TABLET BY MOUTH EVERY DAY active Not Available Not Available No t Available Breo Ellipta 200 mcg-25 mcg/dose powder for inhalation active Not Available Not Available N ot Available Rexulti 1 mg tablet TAKE 1 TABLET BY MOUTH EVERY MORNING active Not Available Not Available No t Available BinaxNOW COVID-19 Ag Self Test kit TEST DIRECTED TODAY active Not Available Not Available No t Available Caplyta 10.5 mg capsule TAKE 1 CAPSULE BY MOUTH DAILY active Not Available Not Available Not Available Vitals Date Recorded Body height Body mass index (BMI) Body weight Provider Name and Address Organization Details Last Updated DateTime 11/30/2023 172.72 cm 22 kg/m2 52381.89 g aminah luciano [place] [facility] 11/30/2023 10:25:59 Date Recorded Body height Body mass index (BMI) Body weight Provider Name and Address Organization Details Last Updated DateTime 02/22/2024 172.72 cm 22.8 kg/m2 59204.86 g atif rizo [place] [facility] 02/22/2024 13:48:13 Date Recorded Body height Body mass index (BMI) Body weight Provider Name and Address Organization Details Last Updated DateTime 05/16/2024 172.72 cm 22.8 kg/m2 39077.86 g cornelius ayala [place] [facility] 05/16/2024 15:31:48 Date Recorded Body height Body mass index (BMI) Body weight Provider Name and Address Organization Details Last Updated DateTime 05/19/2024 172.72 cm 22.8 kg/m2 33402.86 g Antoni Rizo [place] [facility] 05/19/2024 14:27:54 Social History Question Answer Notes LastModified by Organizat ion Details LastModified Time Tobacco Smoking Status Never Smoker Kortney Bustos joey, [place] - [facility] 03/19/2017 12:48:11 Auto Related Injury? No [email or web address] Information not available 03/19/2017 What Is Your Level Of Caffeine Consumption? None [email or web address] Information not available 03/19/2017 Marital Status Single [email or web address] Informatio n not available 03/19/2017 What Was The Date Of Your Most Recent Tobacco Screening? 12/16/2018 Information n ot available 02/23/2019 How Many Children Do You Have? 0 [email or web address] Information not available 03/19/2017 How Much Tobacco Do You Smoke? No [email or web address] Information not available 03/19/2017 Work Related Injury? No [email or web address] Information not available 03/19/2017 Sex: Unknown Functional Status Question Answer Note LastModified by Organizat [employer] Details LastModified Time What is your level of alcohol consumption? Occasional [email or web address] Information not available 03/19/2017 Are you currently employed? No [email or web address] Information not available 03/19/2017 Are you able to care for yourself independently? Yes [email or web address] Information not available 03/19/2017 Mental Status None recorded. Family History Nothing Reported Notes:Patients father a t the age of 62 from [facility] with a past history of cancer. Patients mother is living at the age of 68 with a past history of cancer, diabetes, stroke, heart attack, and hypertension. Patient has one biological sibling at the age of 45 with no past history reported. Patient does not have any biological siblings. Medical History Condition Response Coronary Artery Disease N Gout N Kidney Stones N Hyperthyroidism N Hernia N Head Trauma/Injury N Thyroid Problems N Hypothyroidism Y Depression N COPD N Anemia Y Ulcers N Heart Attack ([place]) N Diabetes N Anxiety Disorder N Bleeding Disorder N Arthritis Y Tuberculosis N AIDS/HIV N Acid Reflux (GERD) N Cancer N Stroke N Diverticulitis N Asthma N Substance Abuse N Reflux/GERD N Back Injury Y High Cholesterol N Hepatitis N Liver Disease N Heart Disease N Pulmonary Embolism N Headaches Y Fibromyalgia N Hypertension N Osteoporosis N Kidney Disease N Gynecological HistoryNo gynecological history recorded. Obstetrics History GPAL:G 0 P 0 0 0 0 Past Encounters Encounter ID Performer Location Encounter Start Date Encounter Closed Date Diagnosis/Indication Diagnosis SNOMED-CT Code Diagnosis ICD10 Code Diagnosis IMO Codes Diagnosis Note [id number] [address] Whitt [facility] [address] [place] [address] 10/03/2013 08:35:03 10/06/2013 15:44:11 Chronic pain syndrome 892597116 Neck pain 41248572 Osteoarthr osis involving multiple sites but not designated as generalized [id number] Karley Martinez MD [facility] [address] [place] [address] 11/30/2013 09:59:09 11/30/2013 15:24:20 Osteoarthrosis involving multiple sites but not designated as generalized 12787818 Cervical s pondylosis without myelopathy 376266629 Degenerati on of lumbosacral intervertebral disc 09359238 [id number] Karley Martinez MD [facility] - [facility] [address] [place] [address] 03/19/2017 10:27:47 03/19/2017 11:56:05 Disorder of connective tissue 462098260 L94.9 Joint conservati on techniques . Serum bloodwork ordered. Plaquenil to be initiated. Autoimmune disease 23274 009 M35.9 IVIG treatment. Rheumatoid arthritis 698 96376 M06.9 Galt 7.5mg one po bid prn. xrays of hands/feet . Lumbar spondylosis 64572 0009 M47.896 Isometric/ isotonic strengthen ing of glutes/abd ominals/ob liques. Weight bearing exercise (history of osteopenia ). Aquatic therapy. Diagnostic medial branch blockade. With refractory pain, t/c lumbosacra l RFA. UDT. [id number] ANU Barker [facility] - [facility] [address] [place] [address] 04/16/2017 10:38:32 04/16/2017 12:37:07 Low back pain 906832204 M54.5 Neck pain 45102034 M54.2 Degenerati on of lumbosacral intervertebral disc 75573252 M51.37 Chronic pain syndrome 37 3964673 G89.4 Osteoarthr osis involving multiple sites but not designated as generalized 86816154 M15.8 Cervical s pondylosis without myelopathy 118333534 M47.812 [id number] Karley Martinez MD [facility] - [facility] [address] [place] [address] 06/15/2017 10:36:25 06/15/2017 11:41:20 Cervical spondylosis without myelopathy 326230299 M47.812 Patient is s/p Diagnostic PCFB with >60% benefit, however nonsustain ed. Secondary to reemergent axial>radi cular cervicalgi a, worsened with extension/ cervical rotation and relieved with neutral spine positionin g, t/c cervical RFA. Osteoarthr osis involving multiple sites but not designated as generalized 43466650 M15.8 Joint conservati on techniques . Myofascial release. T/c botox. Interferen tial electrical stim. Degenerati on of lumbosacral intervertebral disc 79044151 M51.37 [id number] Karley Martinez MD MAIN OFFICE - [facility] [address] [place] [address] 08/13/2017 10:28:21 08/13/2017 11:41:33 Cervical spondylosis without myelopathy 748355174 M47.812 Patient is s/p Diagnostic PCFB with >60% benefit, however nonsustain ed. Secondary to reemergent axial>radi cular cervicalgi a, worsened with extension/ cervical rotation and relieved with neutral spine positionin g, t/c cervical RFA. Osteoarthr osis involving multiple sites but not designated as generalized 42590910 M15.8 Joint conservati on techniques . Myofascial release. T/c botox. Interferen tial electrical stim. Degenerati on of lumbosacral intervertebral disc 80529637 M51.37 Core strengthen ing. Dynamic lumbar stabilizat ion exercises. Autoimmune disease 09679 009 M35.9 Diagnosis of CVID. IVIG treatment. 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 CXR (assess pneumonia) . Allergies reviewed. Patient also with history of PCN allergy. Monitor for cross reactiviti es. [id number] ANU Barker [facility] - [facility] [address] [place] [address] 10/16/2017 13:43:19 10/16/2017 15:05:56 Neck pain 78683933 M54.2 Degenerati on of lumbosacral intervertebral disc 44914190 M51.37 Chronic pain syndrome 37 3346207 G89.4 Osteoarthr osis involving multiple sites but not designated as generalized 34372471 M15.8 Cervical s pondylosis without myelopathy 102366981 M47.812 [id number] ANU Barker [facility] - [facility] [address] [place] [address] 12/11/2017 13:59:12 12/11/2017 14:56:23 Low back pain 211677805 M54.5 Neck pain 30941146 M54.2 Degenerati on of lumbosacral intervertebral disc 34902420 M51.37 Osteoarthr osis involving multiple sites but not designated as generalized 91343694 M15.8 Cervical s pondylosis without myelopathy 265360961 M47.812 [id number] ANU Barker [facility] - [facility] [address] [place] [address] 02/05/2018 14:53:22 02/07/2018 20:05:19 Low back pain 679379653 M54.5 Neck pain 16517287 M54.2 Degenerati on of lumbosacral intervertebral disc 78230711 M51.37 Osteoarthr osis involving multiple sites but not designated as generalized 51861052 M15.8 Cervical s pondylosis without myelopathy 114749712 M47.812 [id number] ANU Barker [facility] - [facility] [address] [place] [address] 04/06/2018 13:23:27 04/06/2018 14:25:16 Osteoarthrosis involving multiple sites but not designated as generalized 96977159 M15.8 Cervical s pondylosis without myelopathy 125358787 M47.812 Chronic pain syndrome 37 2245212 G89.4 Degenerati on of lumbosacral intervertebral disc 75030316 M51.37 [id number] Karley Martinez MD MAIN OFFICE - [facility] [address] [place] [address] 06/10/2018 11:26:23 06/10/2018 12:25:55 Cervical spondylosis without myelopathy 681347179 M47.812 Patient is s/p Diagnostic PCFB with >60% benefit, however nonsustain ed. Therapeuti c PCFB has provided sustained benefit of >6 months. Secondary to reemergent axial>radi cular cervicalgi a, worsened with extension/ cervical rotation and relieved with neutral spine positionin g, t/c cervical RFA. Osteoarthr osis involving multiple sites but not designated as generalized 66828177 M15.8 Joint conservati on techniques . Myofascial release. T/c botox. Interferen tial electrical stim. Degenerati on of lumbosacral intervertebral disc 56965636 M51.37 Core strengthen ing. Dynamic lumbar stabilizat ion exercises. Rheumatoid arthritis 698 03625 M06.9 Paraffin. Joint conservati on techniques . Rheumatolo gy for immunomodu latory treatment. PDmP reviewed. UDT to assess physiologi c levels/med ication interactio n potential. Monitor BUN/CRE/Hy dration status. resistive inspirator y exercise. Isometric/ isotonic strengthen ing of glutes/abd ominals/ob liques. Galt 7.5mg one po bid prn. xrays of hands/feet . [id number] Karley Martinez MD MAIN OFFICE - [facility] [address] [place] [address] 07/01/2018 13:49:01 07/01/2018 15:15:07 Lumbar spondylosis 854063849 M47.896 Isometric/ isotonic strengthen ing of glutes/abd ominals/ob liques. Weight bearing exercise (history of osteopenia ). Aquatic therapy. Diagnostic medial branch blockade. With refractory pain, t/c lumbosacra l RFA. UDT. Lumbar radiculopathy 128 508193 M54.16 Systemic l upus erythematosus 95786101 M32.9 Monitor inflammato ry-immune considerat ions. Joint conservati on techniques . Paraffin. Monitor fluid status. Monitor BUN/CRE. Daily skin survey. Generalize d aerobic conditioni ng. Resistive inspirator y exercises. Myofascial release. Stress management . Cognitive behavior modificati on. N-acetyl Cysteine/L -glutathio ne/Coq10. Nutritiona l modificati ons to continue. [id number] Karley Martinez MD MAIN OFFICE - [facility] [address] [place] [address] 08/12/2018 15:15:55 08/12/2018 16:20:30 Cervical spondylosis without myelopathy [id number] M47.812 Patient is s/p Diagnostic PCFB with >60% benefit, however nonsustain ed. Therapeuti c PCFB has provided sustained benefit of >6 months. Secondary to reemergent axial>radi cular cervicalgi a, worsened with extension/ cervical rotation and relieved with neutral spine positionin g, t/c cervical RFA. Osteoarthr osis involving multiple sites but not designated as generalized 18008322 M15.8 Joint conservati on techniques . Myofascial release. T/c botox. Interferen tial electrical stim. Degenerati on of lumbosacral intervertebral disc 56358390 M51.37 Core strengthen ing. Dynamic lumbar stabilizat ion exercises. [id number] ANU Barker MAIN OFFICE - [facility] [address] [place] [address] 10/07/2018 15:15:56 10/07/2018 16:40:42 Neck pain 15985763 M54.2 Degenerati on of lumbosacral intervertebral disc 70677819 M51.37 Osteoarthr osis involving multiple sites but not designated as generalized 71708767 M15.8 Cervical s pondylosis without myelopathy 452684517 M47.812 [id number] Karley Martinez MD MAIN OFFICE - [facility] [address] [place] [address] 12/16/2018 14:38:29 12/16/2018 15:47:55 Cervical spondylosis without myelopathy 457452081 M47.812 Patient is s/p Diagnostic PCFB with >60% benefit, however nonsustain ed. Therapeuti c PCFB has provided sustained benefit of >6 months. Secondary to reemergent axial>radi cular cervicalgi a, worsened with extension/ cervical rotation and relieved with neutral spine positionin g, t/c cervical RFA. Osteoarthr osis involving multiple sites but not designated as generalized 44584179 M15.8 Joint conservati on techniques . Myofascial release. T/c botox. Interferen tial electrical stim. Degenerati on of lumbosacral intervertebral disc 88478850 M51.37 Core strengthen ing. Dynamic lumbar stabilizat ion exercises. Disorder o f connective tissue [id number] L94.9 Joint conservati on techniques . Serum bloodwork ordered. Plaquenil to be continued. [id number] Karley Martinez MD MAIN OFFICE - [facility] [address] [place] [address] 02/24/2019 10:45:28 02/24/2019 12:01:13 Cervical spondylosis without myelopathy 147516026 M47.812 Patient is s/p Diagnostic PCFB with >60% benefit, however nonsustain ed. Therapeuti c PCFB has provided sustained benefit of >6 months. Secondary to reemergent axial>radi cular cervicalgi a, worsened with extension/ cervical rotation and relieved with neutral spine positionin g, t/c cervical RFA. Osteoarthr osis involving multiple sites but not designated as generalized 10303386 M15.8 Joint conservati on techniques . Myofascial release. T/c botox. Interferen tial electrical stim. Paraffin. Nonopioid alternativ e treatment options discussed at length. Chronic pain syndrome 37 0003472 G89.4 Degenerati on of lumbosacral intervertebral disc 79119646 M51.37 Core strengthen ing. Dynamic lumbar stabilizat ion exercises. [id number] Karley Martinez MD MAIN OFFICE - [facility] [address] [place] [address] 04/21/2019 10:44:29 04/21/2019 11:40:52 Cervical spondylosis without myelopathy 899042356 M47.812 Nonopioid alternativ e treatment, inclusive of clinical advantages /disadvant ages discussed at length. Patient is s/p Diagnostic PCFB with >60% benefit, however nonsustain ed. Therapeuti c PCFB has provided sustained benefit of >6 months. Secondary to reemergent axial>radi cular cervicalgi a, worsened with extension/ cervical rotation and relieved with neutral spine positionin g, t/c cervical RFA. Degenerati on of lumbosacral intervertebral disc 34139177 M51.37 Core strengthen ing. Dynamic lumbar stabilizat ion exercises. Osteoarthr osis involving multiple sites but not designated as generalized 51185798 M15.8 Joint conservati on techniques . Myofascial release. T/c botox. Interferen tial electrical stim. Paraffin. Nonopioid alternativ e treatment options discussed at length. [id number] AN[facility] MAIN OFFICE - [facility] [address] [place] [address] 06/16/2019 11:19:18 06/16/2019 12:13:33 Knee pain 92261090 M25.569 Neck pain 85267869 M54.2 Degenerati on of lumbosacral intervertebral disc 00921606 M51.37 Chronic pain syndrome 37 8057332 G89.4 Cervical s pondylosis without myelopathy 463562905 M47.812 [id number] [facility] MAIN OFFICE - [facility] [address] [place] [address] 08/11/2019 10:53:19 08/11/2019 11:40:30 Degeneration of lumbosacral intervertebral disc 58635539 M51.37 Neck pain 33519663 M54.2 Chronic pain syndrome 37 5520892 G89.4 Cervical s pondylosis without myelopathy 435952793 M47.812 [id number] Karley Martinez MD MAIN OFFICE - [facility] [address] [place] [address] 10/13/2019 08:27:15 10/13/2019 12:06:55 Cervical spondylosis without myelopathy 433884198 M47.812 Nonopioid alternativ e treatment, inclusive of clinical advantages /disadvant ages discussed at length. Patient is s/p Diagnostic PCFB with >60% benefit, however nonsustain ed. Therapeuti c PCFB has provided sustained benefit of >6 months. Secondary to reemergent axial>radi cular cervicalgi a, worsened with extension/ cervical rotation and relieved with neutral spine positionin g, t/c cervical RFA. Degenerati on of lumbosacral intervertebral disc 57316519 M51.37 Core strengthen ing. Dynamic lumbar stabilizat ion exercises. Osteoarthr osis involving multiple sites but not designated as generalized 39602305 M15.8 Joint conservati on techniques . Myofascial release. T/c botox. Interferen tial electrical stim. Paraffin. Nonopioid alternativ e treatment options discussed at length. Knee pain 88988834 M25.5 69 [id number] Karley Martinez MD MAIN OFFICE - [facility] [address] [place] [address] 12/08/2019 06:15:19 12/08/2019 11:54:59 Cervical spondylosis without myelopathy 217082929 M47.812 Nonopioid alternativ e treatment, inclusive of clinical advantages /disadvant ages discussed at length. Patient is s/p Diagnostic PCFB with >60% benefit, however nonsustain ed. Therapeuti c PCFB has provided sustained benefit of >6 months. Secondary to reemergent axial>radi cular cervicalgi a, worsened with extension/ cervical rotation and relieved with neutral spine positionin g, t/c cervical RFA. Degenerati on of lumbosacral intervertebral disc 47358655 M51.37 Core strengthen ing. Dynamic lumbar stabilizat ion exercises. [id number] Karley Martinez MD MAIN OFFICE - [facility] [address] [place] [address] 02/06/2020 13:32:25 02/08/2020 11:02:22 Cervical spondylosis without myelopathy 325059363 M47.812 Nonopioid alternativ e treatment, inclusive of clinical advantages /disadvant ages discussed at length. Patient is s/p Diagnostic PCFB with >60% benefit, however nonsustain ed. Therapeuti c PCFB has provided sustained benefit of >6 months. Secondary to reemergent axial>radi cular cervicalgi a, worsened with extension/ cervical rotation and relieved with neutral spine positionin g, t/c cervical RFA. Degenerati on of lumbosacral intervertebral disc 64572872 M51.37 Core strengthen ing. Dynamic lumbar stabilizat ion exercises. Neck pain 45442934 M54.2 [id number] Karley Martinez MD MAIN OFFICE - [facility] [address] [place] [address] 03/05/2020 08:34:28 03/05/2020 12:29:43 Cervical spondylosis without myelopathy 199630678 M47.812 Telehealth visit today. Medication s reviewed. 11 minutes utilized. Nonopioid alternativ e treatment, inclusive of clinical advantages /disadvant ages discussed at length. Patient is s/p Diagnostic PCFB with >60% benefit, however nonsustain ed. Therapeuti c PCFB has provided sustained benefit of >6 months. Secondary to reemergent axial>radi cular cervicalgi a, worsened with extension/ cervical rotation and relieved with neutral spine positionin g, t/c cervical RFA. Degenerati on of lumbosacral intervertebral disc 40174425 M51.37 Core strengthen ing. Dynamic lumbar stabilizat ion exercises. Osteoarthr osis involving multiple sites but not designated as generalized 59391878 M15.8 Joint conservati on techniques . Myofascial release. T/c botox. Interferen tial electrical stim. Paraffin. Nonopioid alternativ e treatment options discussed at length. [id number] Karley Martinez MD MAIN OFFICE - [facility] [address] [place] [address] 04/02/2020 08:24:06 04/02/2020 11:49:28 Cervical spondylosis without myelopathy 486471717 M40.812 Telehealth visit today. Medication s reviewed. 11 minutes utilized. Nonopioid alternativ e treatment, inclusive of clinical advantages /disadvant ages discussed at length. Patient is s/p Diagnostic PCFB with >60% benefit, however nonsustain ed. Therapeuti c PCFB has provided sustained benefit of >6 months. Secondary to reemergent axial>radi cular cervicalgi a, worsened with extension/ cervical rotation and relieved with neutral spine positionin g, t/c cervical RFA. Degenerati on of lumbosacral intervertebral disc 01355719 M51.37 Core strengthen ing. Dynamic lumbar stabilizat ion exercises. Lumbar spondylosis 54925 0009 M47.896 Isometric/ isotonic strengthen ing of glutes/abd ominals/ob liques. Weight bearing exercise (history of osteopenia ). Aquatic therapy. Diagnostic medial branch blockade. With refractory pain, t/c lumbosacra l RFA. UDT. [id number] Karley Martinez MD MAIN OFFICE - [facility] [address] [place] [address] 04/30/2020 10:21:11 04/30/2020 16:19:59 Cervical spondylosis without myelopathy 849633179 M45.812 Telehealth visit today. Medication s reviewed. 11 minutes utilized. Nonopioid alternativ e treatment, inclusive of clinical advantages /disadvant ages discussed at length. Patient is s/p Diagnostic PCFB with >60% benefit, however nonsustain ed. Therapeuti c PCFB has provided sustained benefit of >6 months. Secondary to reemergent axial>radi cular cervicalgi a, worsened with extension/ cervical rotation and relieved with neutral spine positionin g, t/c cervical RFA. Degenerati on of lumbosacral intervertebral disc 26371565 M51.37 Core strengthen ing. Dynamic lumbar stabilizat ion exercises. Neck pain 04026275 M54.2 Osteoarthr osis involving multiple sites but not designated as generalized 71459240 M15.8 Joint conservati on techniques . Myofascial release. T/c botox. Interferen tial electrical stim. Paraffin. Nonopioid alternativ e treatment options discussed at length. [id number] Karley Martinez MD MAIN OFFICE - [facility] [address] [place] [address] 05/28/2020 10:58:39 05/28/2020 12:09:38 Cervical spondylosis without myelopathy 740070391 M47.812 Telehealth visit today. Medication s reviewed. 12 minutes utilized. Nonopioid alternativ e treatment, inclusive of clinical advantages /disadvant ages discussed at length. Patient is s/p Diagnostic PCFB with >60% benefit, however nonsustain ed. Therapeuti c PCFB has provided sustained benefit of >6 months. Secondary to reemergent axial>radi cular cervicalgi a, worsened with extension/ cervical rotation and relieved with neutral spine positionin g, t/c cervical RFA. Degenerati on of lumbosacral intervertebral disc 07696276 M51.37 Core strengthen ing. Dynamic lumbar stabilizat ion exercises. [id number] Karley Martinez MD MAIN OFFICE - [facility] [address] [place] [address] 07/02/2020 14:00:01 07/03/2020 16:59:27 Neck pain 68507413 M54.2 Degenerati on of lumbosacral intervertebral disc 37160082 M51.37 Chronic pain syndrome 37 0414641 G89.4 Cervical s pondylosis without myelopathy 905895395 M47.812 Lumbar spondylosis 59749 0009 M47.896 Isometric/ isotonic strengthen ing of glutes/abd ominals/ob liques. Weight bearing exercise (history of osteopenia ). Aquatic therapy. Diagnostic medial branch blockade. With refractory pain, t/c lumbosacra l RFA. UDT. Systemic l upus erythematosus 19789887 M32.9 Monitor inflammato ry-immune considerat ions. Joint conservati on techniques . Paraffin. Monitor fluid status. Monitor BUN/CRE. Daily skin survey. Generalize d aerobic conditioni ng. Resistive inspirator y exercises. Myofascial release. Stress management . Cognitive behavior modificati on. N-acetyl Cysteine/L -glutathio ne/Coq10. Nutritiona l modificati ons to continue. [id number] AN[facility] MAIN OFFICE - [facility] [address] [place] [address] 07/30/2020 15:28:54 07/31/2020 08:20:41 Chronic pain syndrome 139506942 G89.4 Osteoarthr osis involving multiple sites but not designated as generalized 33724009 M15.8 Neck pain 81933401 M54.2 Degenerati on of lumbosacral intervertebral disc 53940623 M51.37 [id number] Karley Martinez MD MAIN OFFICE - [address] [address] 08/27/2020 10:39:55 08/27/2020 11:36:19 Low back pain 518791768 M54.5 TH visit. 13 minutes utilized. Radiograph y reviewed. Serum bloodwork reviewed. Dynamic lumbar stabilizat ion exercises. Core strengthen ing. Interferen tial electrical stim. Ionto/phon ophoresis. Nutritiona l modificati ons/COVID/ Preventati ve health measures reviewed at length. Cervical s pondylosis without myelopathy 700283246 M47.812 Degenerati on of lumbosacral intervertebral disc 61614892 M51.37 Osteoarthr osis involving multiple sites but not designated as generalized 17942731 M15.8 Joint conservati on techniques . Myofascial release. T/c botox. Interferen tial electrical stim. Paraffin. Nonopioid alternativ e treatment options discussed at length. 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 IVIG treatment. 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 CXR (assess pneumonia) . Allergies reviewed. Patient also with history of PCN allergy. Monitor for cross reactiviti es. [id number] AN[facility] Barker MAIN OFFICE - [facility] [address] [place] [address] 09/24/2020 09:22:45 09/24/2020 13:36:35 Low back pain 243762875 M54.5 Osteoarthr osis involving multiple sites but not designated as generalized 48635285 M15.8 Neck pain 94008278 M54.2 Degenerati on of lumbosacral intervertebral disc 75885656 M51.37 Chronic pain syndrome 37 2415350 G89.4 [id number] Karley Martinez MD MAIN OFFICE - [facility] [address] [place] [address] 10/18/2020 13:45:55 10/18/2020 14:31:39 Low back pain 073627493 M54.5 TH visit. 13 minutes utilized. Radiograph y reviewed. Serum bloodwork reviewed. Dynamic lumbar stabilizat ion exercises. Core strengthen ing. Interferen tial electrical stim. Ionto/phon ophoresis. Nutritiona l modificati ons/COVID/ Preventati ve health measures reviewed at length. Degenerati on of lumbosacral intervertebral disc 42801860 M51.37 Chronic pain syndrome 37 8937972 G89.4 Cervical s pondylosis without myelopathy 464689371 M47.812 Neck pain 42218598 M54.2 Systemic l upus erythematosus 38437581 M32.9 Monitor inflammato ry-immune considerat ions. Joint conservati on techniques . Paraffin. Monitor fluid status. Monitor BUN/CRE. Daily skin survey. Generalize d aerobic conditioni ng. Resistive inspirator y exercises. Myofascial release. Stress management . Cognitive behavior modificati on. N-acetyl Cysteine/L -glutathio ne/Coq10. Nutritiona l modificati ons to continue. [id number] [facility] Barker MAIN OFFICE - [facility] [address] [place] [address] 11/15/2020 14:10:12 11/15/2020 14:22:22 Low back pain 486978214 M54.5 Chronic pain syndrome 37 7453894 G89.4 Cervical s pondylosis without myelopathy 627291224 M47.812 Degenerati on of lumbosacral intervertebral disc 03630745 M51.37 Neck pain 78660479 M54.2 [id number] AN[facility] Barker MAIN OFFICE - [facility] [address] [place] [address] 12/13/2020 11:09:20 12/14/2020 16:01:23 Degeneration of lumbosacral intervertebral disc 74437404 M51.37 Chronic pain syndrome 37 1133961 G89.4 Cervical s pondylosis without myelopathy 615379624 M47.812 Neck pain 75758890 M54.2 [id number] Karley Martinez MD MAIN OFFICE - [facility] [address] [place] [address] 01/10/2021 10:51:48 01/10/2021 12:08:19 Cervical spondylosis without myelopathy 534319112 M47.812 Degenerati on of lumbosacral intervertebral disc 52699196 M51.37 Osteoarthr osis involving multiple sites but not designated as generalized 13420877 M15.8 Joint conservati on techniques . Myofascial release. T/c botox. Interferen tial electrical stim. Paraffin. Nonopioid alternativ e treatment options discussed at length. Systemic l upus erythematosus 86277200 M32.9 Monitor inflammato ry-immune considerat ions. Joint conservati on techniques . Paraffin. Monitor fluid status. Monitor BUN/CRE. Daily skin survey. Generalize d aerobic conditioni ng. Resistive inspirator y exercises. Myofascial release. Stress management . Cognitive behavior modificati on. N-acetyl Cysteine/L -glutathio ne/Coq10. Nutritiona l modificati ons to continue. Inflammati on of sacroiliac joint 73472535 M46.1 [id number] [facility] MAIN OFFICE - [facility] [address] [place] [address] 02/28/2021 13:25:49 02/28/2021 13:55:26 Low back pain 135941687 M54.5 Neck pain 83903099 M54.2 Degenerati on of lumbosacral intervertebral disc 92968683 M51.37 Chronic pain syndrome 37 2869247 G89.4 Cervical s pondylosis without myelopathy 458348345 M47.812 [id number] Karley Martinez MD MAIN OFFICE - [facility] [address] [place] [address] 03/28/2021 10:18:46 03/28/2021 11:18:47 Cervical spondylosis without myelopathy 279120586 M47.812 Chest wall pain 87585215 6 R07.89 Systemic l upus erythematosus 80807698 M32.9 Monitor inflammato ry-immune considerat ions. Joint conservati on techniques . Paraffin. Monitor fluid status. Monitor BUN/CRE. Daily skin survey. Generalize d aerobic conditioni ng. Resistive inspirator y exercises. Myofascial release. Stress management . Cognitive behavior modificati on. N-acetyl Cysteine/L -glutathio ne/Coq10. Nutritiona l modificati ons to continue. Inflammati on of sacroiliac joint 80365347 M46.1 Lumbar spondylosis 04827 0009 M47.896 Patient with longstandi ng history (>6 months) of lumbosacra l spondylosi s responsive to her underlying targeted multimodal analgesic regimen incorporat ing rehabilita tive/inter ventional/ appropriat ed medicinal means with the achievemen t of >30% (goal) of her underlying axial>radi cular LBP, translatin g to improved functional independen ce with regards to mobility and functional transfers. Isometric/ isotonic strengthen ing of glutes/abd ominals/ob liques. Weight bearing exercise (history of osteopenia ). Aquatic therapy. Diagnostic medial branch blockade. With refractory pain, t/c lumbosacra l RFA. UDT. [id number] Karley Martinez MD MAIN OFFICE - [facility] [address] [place] [address] 05/23/2021 10:22:29 05/23/2021 11:01:13 Cervical spondylosis without myelopathy 136862995 M47.812 Patient with history of chronic (>6 months) cervical spondylosi s responsive to her underlying multimodal treatment regimen incorporat ing rehabilita tive/inter ventional/ appropriat e medicinal means translatin g to improved number/int ensity of her underlying cervicogen ic headaches as well as her overall episodes of axial>radi cular cervicalgi a. Patient is s/p Diagnostic /therapeut ic PCFB with ongoing benefit of >80%. Back functional scale score of 33. Degenerati on of lumbosacral intervertebral disc 44249770 M51.37 Core strengthen ing. Dynamic lumbar stabilizat ion exercises. Interferen tial electrical stim/ionto , phonophore sis/ultras ound. Osteoarthr osis involving multiple sites but not designated as generalized 34255283 M15.8 Joint conservati on techniques . Myofascial release. T/c botox. Interferen tial electrical stim. Paraffin. Nonopioid alternativ e treatment options discussed at length. Systemic l upus erythematosus 69092336 M32.9 Monitor inflammato ry-immune considerat ions. Joint conservati on techniques . Paraffin. Monitor fluid status. Monitor BUN/CRE. Daily skin survey. Generalize d aerobic conditioni ng. Resistive inspirator y exercises. Myofascial release. Stress management . Cognitive behavior modificati on. N-acetyl Cysteine/L -glutathio ne/Coq10. Nutritiona l modificati ons to continue. [id number] [facility] MAIN OFFICE - [facility] [address] [place] [address] 07/18/2021 11:15:04 07/18/2021 11:51:41 Chest pain 66135000 R07.9 Chest wall pain 59655184 6 R07.89 Cervical s pondylosis without myelopathy 052727217 M47.812 Chronic pain syndrome 37 8340151 G89.4 Degenerati on of lumbosacral intervertebral disc 55967198 M51.37 [id number] AN[facility] Barker MAIN OFFICE - [facility] [address] [place] [address] 09/19/2021 14:13:48 09/19/2021 15:00:32 Osteoarthritis of knee 815638794 M17.9 Degenerati on of lumbosacral intervertebral disc 99686731 M51.37 Chronic pain syndrome 37 5303673 G89.4 Chest wall pain 01472804 6 R07.89 Cervical s pondylosis without myelopathy 043135364 M47.812 [id number] AN[facility] Barker MAIN OFFICE - [facility] [address] [place] [address] 11/15/2021 14:08:31 11/15/2021 16:12:01 Low back pain 468913141 M54.50 Chronic pain syndrome 37 4763206 G89.4 Chest wall pain 94811384 6 R07.89 Cervical s pondylosis without myelopathy 525345316 M47.812 Degenerati on of lumbosacral intervertebral disc 94529229 M51.37 [id number] Karley Martinez MD MAIN OFFICE - [facility] [address] [place] [address] 01/20/2022 11:02:14 01/20/2022 11:57:10 Cervical spondylosis without myelopathy 123396578 M47.812 Patient with history of chronic (>6 months) cervical spondylosi s responsive to her underlying multimodal treatment regimen incorporat ing rehabilita tive/inter ventional/ appropriat e medicinal means translatin g to improved number/int ensity of her underlying cervicogen ic headaches as well as her overall episodes of axial>radi cular cervicalgi a. Patient is s/p Diagnostic /therapeut ic PCFB with benefit of >80% lasting >1 year until most recently. Radiograph y clinically supportive of her underlying diagnosis of cervical spondylosi s without acute/conc omitant evidence of radiculopa thy. Diagnostic PCFB to be scheduled. MM performed. Degenerati on of lumbosacral intervertebral disc 59737793 M51.37 Core strengthen ing. Dynamic lumbar stabilizat ion exercises. Interferen tial electrical stim/ionto , phonophore sis/ultras ound. Lumbar spondylosis 78854 0009 M47.896 Patient with longstandi ng history (>6 months) of lumbosacra l spondylosi s responsive to her underlying targeted multimodal analgesic regimen incorporat ing rehabilita tive/inter ventional/ appropriat ed medicinal means with the achievemen t of >30% (goal) of her underlying axial>radi cular LBP, translatin g to improved functional independen ce with regards to mobility and functional transfers. Isometric/ isotonic strengthen ing of glutes/abd ominals/ob liques. Weight bearing exercise (history of osteopenia ). Aquatic therapy. Diagnostic medial branch blockade. With refractory pain, t/c lumbosacra l RFA. UDT. Discussed in detail and counseled patient in regards to the continued need for compliance with recommenda tions to improve quality of life and reduce pain. The patient is currently engaged in a comprehens gabriel pain management program in this practice which includes but is not limited to medication management , interventi onal pain management , physical and behavioral modalities . The treatment goal is to attain an overall pain level of 5 of 10 or less if possible. Through interventi onal procedures , we may be able to diminish focal areas of pain with injections . Physical Therapy will be prescribed as needed to address weakness or gait issues. We will maintain the patient lowest possible dose of opiate medication s to achieve adequate analgesia and maintain adequate levels of function. If scheduled medication s are prescribed , we will monitor prescripti on adherence with urine drug testing. Discussed in detail and counseled patient in regards to the continued need for compliance with recommenda tions to improve quality of life and reduce pain. Psychosoci al aspects of chronic pain are being evaluated and addressed. Appropriat e referrals for psychologi kyle supportive therapies are given as deemed appropriat e. [id number] Karley Martinez MD MAIN OFFICE - [address] [address] 03/20/2022 10:38:16 03/20/2022 11:40:26 Neck pain 86393807 M54.2 Cervical s pondylosis without myelopathy 620230739 M47.812 Patient with history of chronic (>6 months) cervical spondylosi s responsive to her underlying multimodal treatment regimen incorporat ing rehabilita tive/inter ventional/ appropriat e medicinal means translatin g to improved number/int ensity of her underlying cervicogen ic headaches as well as her overall episodes of axial>radi cular cervicalgi a. Patient is s/p Diagnostic /therapeut ic PCFB with benefit of >80% lasting >1 year until most recently. Radiograph y clinically supportive of her underlying diagnosis of cervical spondylosi s without acute/conc omitant evidence of radiculopa thy. Diagnostic PCFB to be scheduled. MM performed. Degenerati on of lumbosacral intervertebral disc [id number] M51.37 Core strengthen ing. Dynamic lumbar stabilizat ion exercises. Interferen tial electrical stim/ionto , phonophore sis/ultras ound. Lumbar spondylosis [id number] M47.896 Patient with longstandi ng history (>6 months) of lumbosacra l spondylosi s responsive to her underlying targeted multimodal analgesic regimen incorporat ing rehabilita tive/inter ventional/ appropriat ed medicinal means with the achievemen t of >30% (goal) of her underlying axial>radi cular LBP, translatin g to improved functional independen ce with regards to mobility and functional transfers. Isometric/ isotonic strengthen ing of glutes/abd ominals/ob liques. Weight bearing exercise (history of osteopenia ). Aquatic therapy. Diagnostic medial branch blockade. With refractory pain, t/c lumbosacra l RFA. UDT. Discussed in detail and counseled patient in regards to the continued need for compliance with recommenda tions to improve quality of life and reduce pain. The patient is currently engaged in a comprehens gabriel pain management program in this practice which includes but is not limited to medication management , interventi onal pain management , physical and behavioral modalities . The treatment goal is to attain an overall pain level of 5 of 10 or less if possible. Through interventi onal procedures , we may be able to diminish focal areas of pain with injections . Physical Therapy will be prescribed as needed to address weakness or gait issues. We will maintain the patient lowest possible dose of opiate medication s to achieve adequate analgesia and maintain adequate levels of function. If scheduled medication s are prescribed , we will monitor prescripti on adherence with urine drug testing. Discussed in detail and counseled patient in regards to the continued need for compliance with recommenda tions to improve quality of life and reduce pain. Psychosoci al aspects of chronic pain are being evaluated and addressed. Appropriat e referrals for psychologi kyle supportive therapies are given as deemed appropriat e. [id number] ANU [facility] MAIN OFFICE - [facility] [address] [place] [address] 06/12/2022 11:26:36 06/12/2022 13:09:57 Low back pain [id number] M54.50 Degenerati on of lumbosacral intervertebral disc 35726594 M51.37 Chronic pain syndrome 37 6152507 G89.4 Chest wall pain 44970067 6 R07.89 Cervical s pondylosis without myelopathy [id number] M47.812 [id number] Karley Martinez MD MAIN OFFICE - [facility] [address] [place] [address] 09/08/2022 11:40:12 09/08/2022 12:05:51 Cervical spondylosis [id number] M47.812 Discussed in detail and counseled patient in regards to the continued need for compliance with recommenda tions to improve quality of life and reduce pain. The patient is currently engaged in a comprehens gabriel pain management program in this practice which includes but is not limited to medication management , interventi onal pain management , physical and behavioral modalities . The treatment goal is to attain an overall pain level of 5 of 10 or less if possible. Through interventi onal procedures , we may be able to diminish focal areas of pain with injections . Physical Therapy will be prescribed as needed to address weakness or gait issues. We will maintain the patient lowest possible dose of opiate medication s to achieve adequate analgesia and maintain adequate levels of function. If scheduled medication s are prescribed , we will monitor prescripti on adherence with urine drug testing. Discussed in detail and counseled patient in regards to the continued need for compliance with recommenda tions to improve quality of life and reduce pain. Psychosoci al aspects of chronic pain are being evaluated and addressed. Appropriat e referrals for psychologi kyle supportive therapies are given as deemed appropriat e. Cervical s pondylosis without myelopathy [id number] M47.812 Patient with history of chronic (>6 months) cervical spondylosi s responsive to her underlying multimodal treatment regimen incorporat ing rehabilita tive/inter ventional/ appropriat e medicinal means translatin g to improved number/int ensity of her underlying cervicogen ic headaches as well as her overall episodes of axial>radi cular cervicalgi a. Patient is s/p Diagnostic /therapeut ic PCFB with benefit of >80% lasting >1 year until most recently. Radiograph y clinically supportive of her underlying diagnosis of cervical spondylosi s without acute/conc omitant evidence of radiculopa thy. Diagnostic PCFB to be scheduled. MM performed. Degenerati on of lumbosacral intervertebral disc [id number] M51.37 Core strengthen ing. Dynamic lumbar stabilizat ion exercises. Interferen tial electrical stim/ionto , phonophore sis/ultras ound. [id number] Karley Martinez MD MAIN OFFICE - [address] [address] 09/22/2022 13:29:07 09/22/2022 14:05:51 Cervical spondylosis without myelopathy [id number] M47.812 Patient with history of chronic (>6 months) cervical spondylosi s responsive to her underlying multimodal treatment regimen incorporat ing rehabilita tive/inter ventional/ appropriat e medicinal means translatin g to improved number/int ensity of her underlying cervicogen ic headaches as well as her overall episodes of axial>radi cular cervicalgi a. Patient is s/p Diagnostic /therapeut ic PCFB with benefit of >80% lasting >1 year until most recently. Radiograph y clinically supportive of her underlying diagnosis of cervical spondylosi s without acute/conc omitant evidence of radiculopa thy. Diagnostic PCFB to be scheduled. MM performed. [id number] Karley Martinez MD MAIN OFFICE - [address] [address] 10/23/2022 11:20:17 10/23/2022 11:50:58 Cervical spondylosis without myelopathy [id number] M47.812 Patient with history of chronic (>6 months) cervical spondylosi s responsive to her underlying multimodal treatment regimen incorporat ing rehabilita tive/inter ventional/ appropriat e medicinal means translatin g to improved number/int ensity of her underlying cervicogen ic headaches as well as her overall episodes of axial>radi cular cervicalgi a. Patient is s/p Diagnostic /therapeut ic PCFB with benefit of >80% lasting >1 year until most recently. Radiograph y clinically supportive of her underlying diagnosis of cervical spondylosi s without acute/conc omitant evidence of radiculopa thy. Diagnostic PCFB to be scheduled. MM performed. Degenerati on of lumbosacral intervertebral disc 57681547 M51.37 Core strengthen ing. Dynamic lumbar stabilizat ion exercises. Interferen tial electrical stim/ionto , phonophore sis/ultras ound. [id number] aKrley Martinez MD MAIN OFFICE - [facility] [address] [place] [address] 11/27/2022 12:13:46 11/27/2022 13:37:46 [id number] Karley Martinez MD MAIN OFFICE - [facility] [address] [place] [address] 12/04/2022 11:43:44 12/04/2022 12:03:04 Neck pain [id number] M54.2 Degenerati on of lumbosacral intervertebral disc 26113082 M51.37 Core strengthen ing. Dynamic lumbar stabilizat ion exercises. Interferen tial electrical stim/ionto , phonophore sis/ultras ound. Cervical s pondylosis without myelopathy [id number] M47.812 Patient with history of chronic (>6 months) cervical spondylosi s responsive to her underlying multimodal treatment regimen incorporat ing rehabilita tive/inter ventional/ appropriat e medicinal means translatin g to improved number/int ensity of her underlying cervicogen ic headaches as well as her overall episodes of axial>radi cular cervicalgi a. Patient is s/p Diagnostic /therapeut ic PCFB with benefit of >80% lasting >1 year until most recently. Radiograph y clinically supportive of her underlying diagnosis of cervical spondylosi s without acute/conc omitant evidence of radiculopa thy. Diagnostic PCFB to be scheduled. MM performed. Chronic pain syndrome 37 0687586 G89.4 [id number] Karley Martinez MD MAIN OFFICE - [facility] [address] [place] [address] 12/25/2022 12:59:15 12/25/2022 13:52:11 Cervical spondylosis without myelopathy [id number] M47.812 Cervical radiofrequ ency to be performed today. Back pain functional scale score (pre procedure 33; prior 37). Patient with history of chronic (>6 months) cervical spondylosi s responsive to her underlying multimodal treatment regimen incorporat ing rehabilita tive/inter ventional/ appropriat e medicinal means translatin g to improved number/int ensity of her underlying cervicogen ic headaches as well as her overall episodes of axial>radi cular cervicalgi a. Patient is s/p Diagnostic /therapeut ic PCFB with benefit of >80% lasting >1 year until most recently. Radiograph y clinically supportive of her underlying diagnosis of cervical spondylosi s without acute/conc omitant evidence of radiculopa thy. The patient was given pre-proced ure instructio ns and all questions were answered. If further questions arise, they are instructed to call our office. Discussed in detail and counseled patient in regards to the continued need for compliance with recommenda tions to improve quality of life and reduce pain. The patient is currently engaged in a comprehens gabriel pain management program in this practice which includes but is not limited to medication management , interventi onal pain management , physical and behavioral modalities . The treatment goal is to attain an overall pain level of 5 of 10 or less if possible. Through interventi onal procedures , we may be able to diminish focal areas of pain with injections . Physical Therapy will be prescribed as needed to address weakness or gait issues. We will maintain the patient lowest possible dose of opiate medication s to achieve adequate analgesia and maintain adequate levels of function. If scheduled medication s are prescribed , we will monitor prescripti on adherence with urine drug testing. Discussed in detail and counseled patient in regards to the continued need for compliance with recommenda tions to improve quality of life and reduce pain. Psychosoci al aspects of chronic pain are being evaluated and addressed. Appropriat e referrals for psychologi kyle supportive therapies are given as deemed appropriat e. [id number] [facility] MAIN OFFICE - [facility] [address] [place] [address] 03/12/2023 08:04:22 03/12/2023 12:18:03 Cervical spondylosis without myelopathy [id number] M47.812 Degenerati on of lumbosacral intervertebral disc 22623020 M51.37 Chronic pain syndrome 37 2051352 G89.4 Chest wall pain 26606614 6 R07.89 [id number] Karley Martinez MD MAIN OFFICE - [facility] [address] [place] [address] 05/04/2023 11:15:37 05/04/2023 13:26:50 Cervical spondylosis without myelopathy [id number] M47.812 s/p Cervical radiofrequ ency with >80% benefit and sustained at this juncture. Back pain functional scale score has commensura tely returned to 37. Patient with history of chronic (>6 months) cervical spondylosi s responsive to her underlying multimodal treatment regimen incorporat ing rehabilita tive/inter ventional/ appropriat e medicinal means translatin g to improved number/int ensity of her underlying cervicogen ic headaches as well as her overall episodes of axial>radi cular cervicalgi a. Patient is s/p Diagnostic /therapeut ic PCFB with benefit of >80% lasting >1 year until most recently. Radiograph y clinically supportive of her underlying diagnosis of cervical spondylosi s without acute/conc omitant evidence of radiculopa thy. The patient was given pre-proced ure instructio ns and all questions were answered. If further questions arise, they are instructed to call our office. Discussed in detail and counseled patient in regards to the continued need for compliance with recommenda tions to improve quality of life and reduce pain. The patient is currently engaged in a comprehens gabriel pain management program in this practice which includes but is not limited to medication management , interventi onal pain management , physical and behavioral modalities . The treatment goal is to attain an overall pain level of 5 of 10 or less if possible. Through interventi onal procedures , we may be able to diminish focal areas of pain with injections . Physical Therapy will be prescribed as needed to address weakness or gait issues. We will maintain the patient lowest possible dose of opiate medication s to achieve adequate analgesia and maintain adequate levels of function. If scheduled medication s are prescribed , we will monitor prescripti on adherence with urine drug testing. Discussed in detail and counseled patient in regards to the continued need for compliance with recommenda tions to improve quality of life and reduce pain. Psychosoci al aspects of chronic pain are being evaluated and addressed. Appropriat e referrals for psychologi kyle supportive therapies are given as deemed appropriat e. Degenerati on of lumbosacral intervertebral disc 66965964 M51.37 Core strengthen ing. Dynamic lumbar stabilizat ion exercises. Interferen tial electrical stim/ionto , phonophore sis/ultras ound. [id number] Karley Martinez MD MAIN OFFICE - [facility] [address] [place] [address] 08/31/2023 13:20:47 08/31/2023 14:55:37 Cervical spondylosis without myelopathy [id number] M47.812 s/p Cervical radiofrequ ency with >80% benefit and sustained at this juncture. Back pain functional scale score has commensura tely returned to 37. Patient with history of chronic (>6 months) cervical spondylosi s responsive to her underlying multimodal treatment regimen incorporat ing rehabilita tive/inter ventional/ appropriat e medicinal means translatin g to improved number/int ensity of her underlying cervicogen ic headaches as well as her overall episodes of axial>radi cular cervicalgi a. Patient is s/p Diagnostic /therapeut ic PCFB with benefit of >80% lasting >1 year until most recently. Radiograph y clinically supportive of her underlying diagnosis of cervical spondylosi s without acute/conc omitant evidence of radiculopa thy. The patient was given pre-proced ure instructio ns and all questions were answered. If further questions arise, they are instructed to call our office. Discussed in detail and counseled patient in regards to the continued need for compliance with recommenda tions to improve quality of life and reduce pain. The patient is currently engaged in a comprehens gabriel pain management program in this practice which includes but is not limited to medication management , interventi onal pain management , physical and behavioral modalities . The treatment goal is to attain an overall pain level of 5 of 10 or less if possible. Through interventi onal procedures , we may be able to diminish focal areas of pain with injections . Physical Therapy will be prescribed as needed to address weakness or gait issues. We will maintain the patient lowest possible dose of opiate medication s to achieve adequate analgesia and maintain adequate levels of function. If scheduled medication s are prescribed , we will monitor prescripti on adherence with urine drug testing. Discussed in detail and counseled patient in regards to the continued need for compliance with recommenda tions to improve quality of life and reduce pain. Psychosoci al aspects of chronic pain are being evaluated and addressed. Appropriat e referrals for psychologi kyle supportive therapies are given as deemed appropriat e. Degenerati on of lumbosacral intervertebral disc 84337497 M51.37 Core strengthen ing. Dynamic lumbar stabilizat ion exercises. Interferen tial electrical stim/ionto , phonophore sis/ultras ound. Lumbar spondylosis 32301 0009 M47.896 Patient with longstandi ng history (>6 months) of lumbosacra l spondylosi s responsive to her underlying targeted multimodal analgesic regimen incorporat ing rehabilita tive/inter ventional/ appropriat ed medicinal means with the achievemen t of >30% (goal) of her underlying axial>radi cular LBP, translatin g to improved functional independen ce with regards to mobility and functional transfers. Isometric/ isotonic strengthen ing of glutes/abd ominals/ob liques. Weight bearing exercise (history of osteopenia ). Aquatic therapy. Diagnostic medial branch blockade. With refractory pain, t/c lumbosacra l RFA. UDT. Discussed in detail and counseled patient in regards to the continued need for compliance with recommenda tions to improve quality of life and reduce pain. [id number] Karley Martinez MD MAIN OFFICE - [facility] [address] [place] [address] 09/28/2023 08:55:15 09/28/2023 15:11:01 Lumbar spondylosis [id number] M47.896 Patient with longstandi ng history (>6 months) of lumbosacra l spondylosi s responsive to her underlying targeted multimodal analgesic regimen incorporat ing rehabilita tive/inter ventional/ appropriat ed medicinal means with the achievemen t of >30% (goal) of her underlying axial>radi cular LBP, translatin g to improved functional independen ce with regards to mobility and functional transfers. Isometric/ isotonic strengthen ing of glutes/abd ominals/ob liques. Weight bearing exercise (history of osteopenia ). Aquatic therapy. Diagnostic medial branch blockade. With refractory pain, t/c lumbosacra l RFA. UDT. Discussed in detail and counseled patient in regards to the continued need for compliance with recommenda tions to improve quality of life and reduce pain. Cervical spondylosis [id number] M47.812 Discussed in detail and counseled patient in regards to the continued need for compliance with recommenda tions to improve quality of life and reduce pain. The patient is currently engaged in a comprehens gabriel pain management program in this practice which includes but is not limited to medication management , interventi onal pain management , physical and behavioral modalities . The treatment goal is to attain an overall pain level of 5 of 10 or less if possible. Through interventi onal procedures , we may be able to diminish focal areas of pain with injections . Physical Therapy will be prescribed as needed to address weakness or gait issues. We will maintain the patient lowest possible dose of opiate medication s to achieve adequate analgesia and maintain adequate levels of function. If scheduled medication s are prescribed , we will monitor prescripti on adherence with urine drug testing. Discussed in detail and counseled patient in regards to the continued need for compliance with recommenda tions to improve quality of life and reduce pain. Psychosoci al aspects of chronic pain are being evaluated and addressed. Appropriat e referrals for psychologi kyle supportive therapies are given as deemed appropriat e. [id number] Karley Martinez MD HOME OFFICE - [facility] [address] [place] [address] 11/30/2023 09:44:07 11/30/2023 10:31:44 Cervical spondylosis [id number] M47.812 Discussed in detail and counseled patient in regards to the continued need for compliance with recommenda tions to improve quality of life and reduce pain. The patient is currently engaged in a comprehens gabriel pain management program in this practice which includes but is not limited to medication management , interventi onal pain management , physical and behavioral modalities . The treatment goal is to attain an overall pain level of 5 of 10 or less if possible. Through interventi onal procedures , we may be able to diminish focal areas of pain with injections . Physical Therapy will be prescribed as needed to address weakness or gait issues. We will maintain the patient lowest possible dose of opiate medication s to achieve adequate analgesia and maintain adequate levels of function. If scheduled medication s are prescribed , we will monitor prescripti on adherence with urine drug testing. Discussed in detail and counseled patient in regards to the continued need for compliance with recommenda tions to improve quality of life and reduce pain. Psychosoci al aspects of chronic pain are being evaluated and addressed. Appropriat e referrals for psychologi kyle supportive therapies are given as deemed appropriat e. Lumbar spondylosis 89999 0009 M47.896 Patient with longstandi ng history (>6 months) of lumbosacra l spondylosi s responsive to her underlying targeted multimodal analgesic regimen incorporat ing rehabilita tive/inter ventional/ appropriat ed medicinal means with the achievemen t of >30% (goal) of her underlying axial>radi cular LBP, translatin g to improved functional independen ce with regards to mobility and functional transfers. Isometric/ isotonic strengthen ing of glutes/abd ominals/ob liques. Weight bearing exercise (history of osteopenia ). Aquatic therapy. Diagnostic medial branch blockade. With refractory pain, t/c lumbosacra l RFA. UDT. Discussed in detail and counseled patient in regards to the continued need for compliance with recommenda tions to improve quality of life and reduce pain. [id number] Karley Martinez MD HOME OFFICE - [facility] [address] [address] 02/22/2024 13:16:33 02/22/2024 14:19:25 Cervical spondylosis [id number] M47.812 Discussed in detail and counseled patient in regards to the continued need for compliance with recommenda tions to improve quality of life and reduce pain. The patient is currently engaged in a comprehens gabriel pain management program in this practice which includes but is not limited to medication management , interventi onal pain management , physical and behavioral modalities . The treatment goal is to attain an overall pain level of 5 of 10 or less if possible. Through interventi onal procedures , we may be able to diminish focal areas of pain with injections . Physical Therapy will be prescribed as needed to address weakness or gait issues. We will maintain the patient lowest possible dose of opiate medication s to achieve adequate analgesia and maintain adequate levels of function. If scheduled medication s are prescribed , we will monitor prescripti on adherence with urine drug testing. Discussed in detail and counseled patient in regards to the continued need for compliance with recommenda tions to improve quality of life and reduce pain. Psychosoci al aspects of chronic pain are being evaluated and addressed. Appropriat e referrals for psychologi kyle supportive therapies are given as deemed appropriat e. [id number] Karley Martinez MD HOME OFFICE - [facility] [address] [address] 05/16/2024 15:24:11 05/16/2024 16:04:27 Cervical spondylosis without myelopathy [id number] M47.812 s/p Cervical radiofrequ ency with >80% benefit and sustained at this juncture. Back pain functional scale score has commensura tely returned to 37. Patient with history of chronic (>6 months) cervical spondylosi s responsive to her underlying multimodal treatment regimen incorporat ing rehabilita tive/inter ventional/ appropriat e medicinal means translatin g to improved number/int ensity of her underlying cervicogen ic headaches as well as her overall episodes of axial>radi cular cervicalgi a. Patient is s/p Diagnostic /therapeut ic PCFB with benefit of >80% lasting >1 year until most recently. Radiograph y clinically supportive of her underlying diagnosis of cervical spondylosi s without acute/conc omitant evidence of radiculopa thy. The patient was given pre-proced ure instructio ns and all questions were answered. If further questions arise, they are instructed to call our office. Discussed in detail and counseled patient in regards to the continued need for compliance with recommenda tions to improve quality of life and reduce pain. The patient is currently engaged in a comprehens gabriel pain management program in this practice which includes but is not limited to medication management , interventi onal pain management , physical and behavioral modalities . The treatment goal is to attain an overall pain level of 5 of 10 or less if possible. Through interventi onal procedures , we may be able to diminish focal areas of pain with injections . Physical Therapy will be prescribed as needed to address weakness or gait issues. We will maintain the patient lowest possible dose of opiate medication s to achieve adequate analgesia and maintain adequate levels of function. If scheduled medication s are prescribed , we will monitor prescripti on adherence with urine drug testing. Discussed in detail and counseled patient in regards to the continued need for compliance with recommenda tions to improve quality of life and reduce pain. Psychosoci al aspects of chronic pain are being evaluated and addressed. Appropriat e referrals for psychologi kyle supportive therapies are given as deemed appropriat e. Osteoarthr osis involving multiple sites but not designated as generalized [id number] M15.8 Joint conservati on techniques . Myofascial release. T/c botox. Interferen tial electrical stim. Paraffin. Nonopioid alternativ e treatment options discussed at length. Chronic pain syndrome 37 [id number] G89.4 Lumbar spondylosis 54617 0009 M47.896 Patient with longstandi ng history (>6 months) of lumbosacra l spondylosi s responsive to her underlying targeted multimodal analgesic regimen incorporat ing rehabilita tive/inter ventional/ appropriat ed medicinal means with the achievemen t of >30% (goal) of her underlying axial>radi cular LBP, translatin g to improved functional independen ce with regards to mobility and functional transfers. Isometric/ isotonic strengthen ing of glutes/abd ominals/ob liques. Weight bearing exercise (history of osteopenia ). Aquatic therapy. Diagnostic medial branch blockade. With refractory pain, t/c lumbosacra l RFA. UDT. Discussed in detail and counseled patient in regards to the continued need for compliance with recommenda tions to improve quality of life and reduce pain. Cervical radiculopathy [id number] M54.12 [id number] Karley Martinez MD HOME [facility] - [facility] [address] [address] [address] [place] [address] 05/19/2024 08:32:44 05/19/2024 14:49:42 Cervical radiculopathy [id number] M54.12 Health Concerns Section Related Observation LastModified by Organization Detai ls LastModified Time None Recorded Concern Status LastModified by Organization Details LastModified Time None Recorded Advance Directives Directive None Recorded Payers Insurance Date Sequence Insurance Name Policy Number Policy Huynh Covered Member ID Huynh Member ID Guarantor Name 10/03/2013 1 *SELF PAY* Do nna Breejen 05/16/2024 1 [employer] - OPEN CHOICE (PPO) [id number] Vannessa Mariee [id number] Vannessa Mariee 03/19/2017 1 *SELF PAY* Do nna Breejen 10/24/2024 1 [place] Vannessa Mariee [id number] Vannessa Mariee 05/16/2024 2 [place] [facility] Vannessa Mariee [id number] Vannessa Hernándezjen 05/16/2024 1 [employer] [place]IC[place]AC[place]/ ADVANTAGE - HMO) Vannessa Mariee [id number] Vannessa Mariee 05/16/2024 1 [employer] [place] [employer] (MEDICARE REPLACEMENT HMO) Vannessa Mariee [id number] Vannessa Mariee OBGyn Episode No OBEpisode recorded.
--- OUTSIDE RECORDS SUMMARY | 2025-06-15 18:17 | XMS_ITS | Encounter Summary ---
Author Organization [facility] Address [address] [place] [address] Care Team Providers Care Regulatory And Compliance Technician Name Role Phone Kesha Lopez MD Primary Care Provider [phone] Encounter Details Date Type Department Care Team (Late st Contact Info) Description 06/27/2024 Scanned Document [facility] [address] [place] [address] [address] [place] [address] Kesha Lopez MD [address] [place] [address] [address] [place] [address] Social History Tobacco Use Types Packs/Day Years [...] on filedocumented in this encounter Care Teams Regulatory And Compliance Technician Relationship Specialty Start Date End Date Kesha Lopez MD [address] [place] [address] [address] [place] [address] PCP - General Internal Medicine 06/22/24 documented as of this encounter
== END 2025-06-15 15:01 | disposition home or self-care (01) ==
LOC: HO.MAMMO 15:00
PROVIDERS: PCP Student in an Organized Health Care Education/Training Program; Visit Provider Student in an Organized Health Care Education/Training Program
DX: Z12.31 Encounter for screening mammogram for malignant neoplasm of breast (principal)
CPT/HCPCS: 77063; 77067

== ENCOUNTER → 2025-06-15 15:00 | Outpatient (BNV) | payer MEDICARE, MEDICAID, SELFPAY | PROVIDERS: PCP Student in an Organized Health Care Education/Training Program; Visit Provider Internal Medicine | DX: Z12.31 Encounter for screening mammogram for malignant neoplasm of breast (principal) | CPT/HCPCS: 77063; 77067 ==

== ENCOUNTER 2025-06-16 15:43 | Outpatient (AMB) | payer MEDICARE, MEDICAID, SELFPAY ==
--- NOTE | 2025-06-16 16:09 | A.OFFPC_ITS ---
Vital Signs 06/16/25 16:12 Height 5 ft 6.93 in Weight 146 lb 6 oz BMI 23.0 BP 172/101 H Blood Pressure Location Lt brachial Position Sitting Respiration 20 Pulse 86 Pulse Source Monitor Temp 98.4 F Temp Source Oral Pulse Oximetry (%) 97 Oxygen Delivery Method Room Air Intake Visit Reasons: EP - ? Osteopenia Intake Note: Osteopenia Leather Shaver Required: No Accompanied by: Self / Same As Patient Allergies Penicillins (PENICILLINS) Allergy (Unknown, Verified 06/16/25 16:12) UNKNOWN sulfate Allergy (Severe, Uncoded 06/16/25 16:12) burn BEES Allergy (Unknown, Uncoded 06/16/25 16:12) Unknown Wellbutrin Allergy (Unknown, Uncoded 06/16/25 16:12) Unknown Tobacco use date assessed: 05/16/25 Dental Screening Dental Screen Date: 05/16/25 HPI HPI Comments History of Present Illness Details History of Present Illness The patient is a 54-year-old female presenting with management concerns for her severe osteoporosis. Severe Osteoporosis: The patient has a significantly advanced osteoporosis for her age. She has experienced a loss of two inches in height, with one inch occurring over the past year. She sustained three bone fractures within the last year, including after recent surgery where the surgeon reported extreme softness in her bones, likening them to shredding during repair attempts. The surgeon advised a referral to an chiropractic neurologist specializing in bone health. Despite this, she has never received treatment with bisphosphonates and has declined Reclast. Interested in bone-building treatments, she awaits a DEXA scan on the , from an initial date in August. 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 She reports significant difficulty in performing activities of daily living, largely because she is right-handed. Her right arm cast exacerbates her functional limitations. Surgical History: - Recent unspecified surgery with noted extremely soft bones. Social History: - The patient lives alone and is right-h anded, currently limited by a right arm cast. - Financially, she is experiencing hards hip, exacerbated by a potential rent increase necessitating possible relocation. - She identifies her dog as an emotional support animal, providing substantial emotional comfort. - On disability due to multiple chronic conditions. Diagnostic Results: - Bone density scan (DEXA) scheduled for the . Past Medical History - Severe osteoporosis - Avascular necrosis of the scaphoid, ri ght - Rheumatoid arthritis - Osteoarthritis - Common variable immunodeficiency (CVID ) - Disability status due to multiple [facility] conditions Health Maintenance - Bone density scan (DEXA) scheduled for the 18th of the month. [facility] Medical History (Updated 06/18/25 @ 20:16 by Bhargav Pavon MD) Rheumatoid arthritis Common variable immunodeficiency Severe osteopetrosis Food insecurity Preiser disease Elevated liver enzymes Hyperlipidemia History of deviated nasal septum Neck pain on right side Chronic right ear pain Cervical cancer screening Suicidal ideation Surgical History History of nasal surgery Family History Father No problems noted. Mother Diabetes High cholesterol Afib High blood pressure Cancer Family history of thyroid problem Stroke Social History (Updated 06/16/25 @ 16:12 by Farhat Hernandez CMA) Housing: Apartment Alcohol intake: current Alcohol intake frequency: holidays/special occasions only Patient Tobacco Use Status: Former Tobacco user e-Cigarette/Vaping Use: Never Used Second Hand Smoke Exposure: Yes Use of substances other than those prescribed or required for medical reasons: No service: No Current occupational status: disabled Sexual orientation: Straight/Heterosexual Cognitive needs: No Hearing needs: No Vision needs: Yes (rx glasses) Questionnaire Thrive Questionnaire Date Thrive assessed: 05/16/25 DINESH-7 AMB Questionnaire DINESH-7 Date DINESH - 7 assessed: 05/16/25 Source: Developed by Drs. Miguel Newby, Rolanda Swain, Ck Garcia and colleagues, with an educational bel from [employer]. Review of Systems Narrative Review of Systems - Musculoskeletal: Reports three bone fractures in the past year; reports loss of two inches in height. - Endocrine: Reports menopausal symptoms. - Immunologic: Reports history of common variable immunodeficiency (CVID). 10-point ROS reviewed and negative except as noted in HPI Physical exam (Primary Care) Vital Signs: Last Vital Signs Temp 98.4 F 06/16/25 16:12 Pulse 86 06/16/25 16:12 Resp 20 06/16/25 16:12 BP 172/101 H 06/16/25 16:12 Pulse Ox 97 11/14/25 16:12 Oxygen Delivery Method Room Air 06/16/25 16:12 BMI result Body Mass Index 23.0 Tobacco/Smoking Status: Tobacco use Status Tobacco use date assessed 05/16/25 06/16/25 16:09 Patient Tobacco Use Status Former Tobacco user 06/16/25 16:12 Tobacco use type 05/09/25 13:14 e-Cigarette/Vaping Use Never Used 06/16/25 16:12 Thrive Assessment: Date of Thrive Assessment Date Thrive assessed 04/28/25 06/16/25 16:18 Narrative Physical Exam General: Well-appearing, in no acute distress. Vital signs: Within normal limits. HEENT: Normocephalic, atraumatic. PERRLA, EOMI. Conjunctiva clear, sclera anicteric. Oropharynx clear, mucous membranes moist. TMs intact bilaterally. Neck: Supple, no lymphadenopathy, no thyromegaly, no JVD or carotid bruits. Cardiovascular: RRR, normal S1/S2, no murmurs, rubs, or gallops. Peripheral pulses 2+ and symmetric. No edema. Respiratory: Lungs clear to auscultation bilaterally, no wheezes, rales, or rhonchi. Normal effort. Abdomen: Soft, non-tender, non-distended. Normoactive bowel sounds. No hepatosplenomegaly, no masses. MSK: Full range of motion, no joint swelling or deformity. Normal gait. Skin: Warm, dry, intact. No rashes, lesions, or pallor. Neuro: Alert and oriented x3. Cranial nerves II-XII intact. Strength 5/5 throughout. Sensation intact. Reflexes 2+ symmetric. Normal coordination and gait. Psych: Appropriate mood and affect. Normal judgment and insight. Coding Level of Care Code Est Pt Level 3 (28215) Diagnoses Preiser disease M87.243 Food insecurity Z59.41 Severe osteopetrosis Q78.2 Common variable immunodeficiency D83.9 Rheumatoid arthritis M06.9 Assessment & Plan Assessment & Plan (1) Preiser disease: Code(s): M87.243 - Osteonecrosis due to previous trauma, unspecified hand Category: Medical (2) Food insecurity: Code(s): Z59.41 - Food insecurity Category: Medical (3) Severe osteopetrosis: Code(s): Q78.2 - Osteopetrosis Category: Medical (4) Common variable immunodeficiency: Code(s): D83.9 - Common variable immunodeficiency, unspecified Category: Medical (5) Rheumatoid arthritis: Code(s): M06.9 - Rheumatoid arthritis, unspecified Category: Medical Plan Consent The patient provided verbal consent for a referral to endocrinology and understands the importance of the DEXA scan for future treatment planning. She has refused treatment with Reclast previously. The risks, benefits, and alternatives for bone-building medications will be discussed further after specialist evaluation and DEXA results. Patient was informed and verbally consented to the use of an ambient scribe for clinic note documentation during this visit. Plan 1. Severe Osteoporosis - An open referral to Endocrinology for subspecialty evaluation. - Ensure the DEXA scan occurs on the . - Discuss bone-building medication post-consultation and DEXA, adhering to insurance protocols. 2. Impaired Functional Status - Coordinate [facility] services to aid with activities of daily living, given her right arm cast limitations. 3. Need For Emotional Support Animal Documentation - Complete any necessary forms for the patient's dog to be recognized as a support animal when provided. 4. Financial Hardship - Connect the patient with community resources to assist with financial instability. Discussion Notes Today, we discussed in detail the patient's severe osteoporosis, emphasizing the urgency of specialist referral. I provided an open referral for endocrinology to facilitate an expedited appointment. Given the necessity of the DEXA scan in the patient's treatment trajectory, we deferred any specific bone-building medication discussions until after these results. The patient was informed of her current conditions and challenged daily activities due to her arm cast, prompting the coordination of [facility] services. We addressed her financial concerns and ability to maintain her current residence by offering support through documentation for her emotional support animal and offering to connect her with available community resources. Patient Instructions - You have an open referral; please contact endocrinology offices to find the soonest available appointment. - Await a call from Svetlana to set up your [facility] services. - Attend your scheduled DEXA scan on the . - Bring any REYNA documentation to our office, and we'll help complete it. - Inform our team if you want assistance with community resources. Medical Decision Making This 54-year-old female patient presents with concerns surrounding her advanced osteoporosis and potential bone-building treatments. Her established history of fractures and severe osteoporotic changes demand prompt endocrinological assessment. I instructed her on proceeding with the DEXA scan to gather necessary clinical insight, vital for subsequent treatment planning. The primary goal was obtaining subspecialty input to tailor appropriate management, balancing urgency and insurance requirements for therapeutic interventions. Coordination for supportive services and exploring community aid is vital, acknowledging her functional limitations and financial insecurities that may compound her health challenges. Total Time Statement 20min Total time spent caring for the patient today includes pre-visit chart review, documentation, review of laboratory and diagnostic imaging results, medication reconciliation, medically necessary evaluation, counseling on diagnoses, care coordination, ordering appropriate tests and medications, review of tests performed by other providers, reporting test results to the patient, and communication with other healthcare providers. Orders: Referrals Endocrinology Referral M81.0 - Age-related osteoporosis without current pathological fracture Nurse Navigator Referral Z59.41 - Food insecurity
[2025-06-16 16:12] VITALS: BP 172/101; PULSE 86; RESP 20; TEMP 36.9; O2SAT 97; BMI 23.0
--- OUTSIDE RECORDS SUMMARY | 2025-06-17 00:47 | XMS_ITS | Data Portability ---
Author Organization [facility], Main Office Address [address] [place] [address] Care Team Providers Care Nursery Supervisor Name Role Phone MIKE AGUAYO Primary Care Provider MIKE AGUAYO Referring Provider Assessment Encounter Date Assessment Date Assessment LastModified by Organization Details LastModified Time 09/14/2024 09/14/2024 This is a 54-year-old lady with a history of neck pain and right upper extremity radiculopathy as well as medical issues including common variable immunodeficiency . She has been treated for her neck pain and cervical spine issues in the last couple of years while she was in [place] with pain management as well as with physical therapy she has not shown any significant improvement with that. She has significant pain which is disabling for her. I have requested x-rays of her cervical spine AP, lateral, flexion and extension views. I am also recommending physical therapy. I will see her again in another 4 to 6 weeks for further discussion. 45 minutes were spent with the patient in: History taking and physical examination Evaluation of previous notes Discussing the treatment plan Evaluating and discussing the alternatives Documentation of the history, physical exam and treatment plan Care coordination Not available 09/14/2024 14:05:03 Plan of Treatment Reminders Order Date Submit Date Provider Last Modified By Organization Details Last Modified Time Details Appointments None recorded. Lab None recorded. Referral physical therapist referral - Cervical PT 2 to 3 times a week for 6 to 8 weeks range of motion, therapeuti c, abdominal strengthen ing, general strengthen ing, postural strengthen ing, stretching , modalities - PRN: heat, message, modalities , ultrasound , continue program at home. 2024 025 [email or web address] 3 [facility], [address] [facility], [address], [place], [address], 5 11:35:02 Procedures None recorded. Surgeries None recorded. Imaging XR, cervical spine 2024 025 [email or web address] 3 [facility] ([facility]), [address] [facility], [address], [place], [address], 5 11:35:02 Medication Orders None recorded. Patient TargetsNo targets recorded. Patient Instructions Encounter Date Encounter Id Patient Instructions Last Modified By Organization Details Last Modified Time 09/14/2024 [id number] Neck Exercises: Active Neck Rotation To start, lie on your back, knees bent and feet flat on the floor. Keep your ears, shoulders, and hips aligned, but do not press your lower back to the floor. Rest your hands on your pelvis. Breathe deeply and relax. Here are the steps for the active neck rotation: Use your neck muscles to turn your head to one side until you feel a stretch in the muscles. Hold for 5 seconds. Then turn to the other side. Repeat 5 times on each side. Note: Keep your shoulders on the floor. Do not lift or tuck your chin as you turn your head. Neck Exercises: Overhead Arm Raise lay on back with knees bent. Arrows show breathing in and out. To start, lie on your back, knees bent and feet flat on the floor. Keep your ears, shoulders, and hips aligned, but do not press your lower back to the floor. Rest your hands on your pelvis. Breathe deeply and relax. Tighten the belly muscles to keep the back from arching. Here are the steps for the arm lift: lay on your back to do overhead arm raise exercise. Raise one arm overhead, then lower it. As you lower that arm, raise the other arm. Continue to move both arms in slow, smooth arcs. Keep your arms straight and your head and neck relaxed. Repeat 10 times with each arm. Neck Exercises: Head Lifts Do this exercise on your hands and knees. Keep your knees under your hips and your hands under your shoulders. Keep your spine in a neutral position (not arched or sagging). Keep your ears in line with your shoulders. Hold for a few seconds before starting the exercise: Keeping your back straight, slowly drop your chin toward your chest. Tuck in your chin. Hold for 5 seconds. Then lift your head until your neck is level with your back. Hold for 5 seconds. Repeat 5 to10 times. Back Exercises: Neck and Torso Rotation To start, lie on your back, knees bent and feet flat on the floor. Keep your ears, shoulders, and hips aligned, but do not press your lower back to the floor. Breathe deeply and relax. From starting position, drop both knees to one side. At the same time, turn your head and look in the other direction. Keep both feet in contact with the floor and keep your arms at your sides. Hold for 5 seconds. Then slowly switch sides. Repeat 5 to 10 times. Not available 09/14/2024 14:04:06 Reason for Referral Physical Therapist Referral for Neck pain Cervical PT 2 to 3 times a week for 6 to 8 weeks range of motion, therapeutic, abdominal strengthening, general strengthening, postural strengthening, stretching, modalities - PRN: heat, message, modalities, ultrasound, continue program at home. Referring Physician: Dominick Bains, Orthopedic Surgery-Spine, Encounter Date: 09/14/2024 Problems Name Problem SNOMED Code Status Onset Date Resolution Date Notes Provider Name and Address Organization Details Recorded Time Cervical radiculopathy 20347700 Active 2024 Dominick Bains MD [address] [place] [address], [phone], [place] [facility] 14:00:35 Neck pain 99133897 Active 2024 Dominick Bains MD [address] [place] [address], [phone], [place] [facility] 14:00:37 Problem Notes None recorded. Procedures Surgical History Date Name Laterality Status Provider Name and Address Organization Details Recorded Time Removal of ovarian cyst(s) completed Dominick Bains MD [address] [place] [address], [phone], [place] [facility] 09/14/2024 13:54:05 operation on intestine completed Dominick Bains MD [address] [place] [address], [phone], [place] [facility] 09/14/2024 13:54:29 operation on breast duct completed Dominick Bains MD [address] [place] [address], [phone], [place] [facility] 09/14/2024 13:55:33 Imaging Results None recorded. Procedure Notes None recorded. Medical Equipment None Reported. Allergies Allergen ID Allergen Name Allergen Category Reaction Reaction Severity Criticality Documentation Date Start Date Code Code System Note Provider Name and Address Organization Details Recorded Time 1262 Product containin g penicilli n (product) medicatio n eye swelling itching moderate moderate Not available 09/14/2024 67237 8001 SNOMED Chika Nara [facility], [place] [facility] 13:49:31 1263 Substance with sulfonami de structure and antibacte rial mechanism of action (substanc e) medicatio n vargas-j ohnson syndrome severe Not available 09/14/2024 05577 8003 SNOMED Chika Nara [facility], [place] [facility] 13:49:31 1264 azelastin e medicatio n Not available Not available Not available 09/14/2024 65087 RxNorm Dominick Bains MD [address] [place] [address], [phone], [place] [facility] 13:52:44 Medications Name Sig Start Date Stop Date Status Note LastModified by Organization Details LastModified Time Adderall 30 mg tablet 1 tablet twice a day by oral route. active Not Available Not Available No t Available prednisone 10 mg tablet active Not Available Not Available Not Available loperamide 2 mg capsule TAKE ONE CAPSULE BY MOUTH EVERY 4 HOURS NEEDED FOR LOOSE STOOL active Not Available Not Available Not Available cetirizine 10 mg tablet 1 tablet every day by oral route. active Not Available Not Available No t Available ibuprofen 800 mg tablet 1 tablet as needed by oral route. active Not Available Not Available Not Available prednisone 20 mg tablet TAKE 2 TABLETS BY MOUTH DAILY FOR 5 DAYS active Not Available Not Available N ot Available rizatriptan 10 mg tablet active Not Available Not Available Not Available loperamide 2 mg tablet 2 tablets as needed by oral route. active Not Available Not Available No t Available amlodipine 5 mg tablet active Not Available Not Available No t Available hydrocodone 10 mg-acetamino phen 325 mg tablet TAKE 1 TABLET BY MOUTH EVERY 6 HOURS NEEDED active Not Available Not Available No t Available gabapentin 300 mg capsule TAKE 1 CAPSULE BY MOUTH TWICE DAILY active Not Available Not Available No t Available rizatriptan 10 mg (Dis) tablet 1 tablet as needed by oral route. active Not Available Not Available Not Available albuterol 90 mcg/actuatio n aerosol inhaler active Not Available Not Available Not Available azelastine 137 mcg (0.1 %) nasal spray USE 1 SPRAY IN EACH NOSTRIL TWICE DAILY DIRECTED active Not Available Not Available Not Available hydroxychlor oquine 200 mg tablet 1 tablet twice a day by oral route. active Not Available Not Available No t Available epinephrine 0.3 mg/0.3 mL injection, auto-injecto r INJECT 1 PEN IN THE MUSCLE ONE TIME NEEDED FOR ANAPHYLAXIS DIRECTED active Not Available Not Available Not Available albuterol sulfate HFA 90 mcg/actuatio n aerosol inhaler INHALE 2 PUFFS BY MOUTH EVERY 6 HOURS NEEDED FOR WHEEZING active Not Available Not Available No t Available doxycycline hyclate 100 mg tablet TAKE 1 TABLET BY MOUTH TWICE DAILY FOR 10 DAYS. LIMIT SUN EXPOSURE WHILE ON THIS ANTIBIOTIC active Not Available Not Available N ot Available hydrocodone- acetaminophe n 325 mg-10 mg tablet 1 tablet every 6 hours by oral route. active Not Available Not Available Not Available cyclobenzapr ine 5 mg tablet 1 tablet as needed by oral route. active Not Available Not Available Not Available cholestyrami ne (with sugar) 4 gram powder for susp in a packet active Not Available Not Available Not Available gabapentin 300 mg tablet 1 tablet twice a day by oral route. active Not Available Not Available No t Available tramadol ER 100 mg tablet,exten ded release 24 hr TAKE 1 TABLET BY MOUTH TWICE DAILY active Not Available Not Available No t Available Viibryd 20 mg tablet 1 tablet every day by oral route. active Not Available Not Available No t Available diclofenac 20 mg/gram/actu ation (2 %) topical soln metered-dose pump 2 pumps as needed by topical route. active Not Available Not Available No t Available Hysingla ER 20 mg tablet, crush resistant, extended release 1 tablet every day by oral route. active Not Available Not Available No t Available Flonase Allergy Relief 50 mcg/actuatio n nasal spray,suspen lisa active Not Available Not Available Not Available Caplyta 10.5 mg capsule TAKE 1 CAPSULE BY MOUTH DAILY active Not Available Not Available Not Available Caplyta 21 mg capsule TAKE 1 CAPSULE BY MOUTH DAILY active Not Available Not Available Not Available Vitals Date Recorded Body height Body mass index (BMI) Body weight Provider Name and Address Organization Details Last Updated DateTime 09/14/2024 170.18 cm 22.2 kg/m2 01116.12 g Dominick Bains MD [address] [place], [phone], [place] [facility] 09/14/2024 13:51:20 Social History Question Answer Notes LastModified by Organizat ion Details LastModified Time Tobacco Smoking Status Former Smoker Dominick Bains MD [address] [place] [address], [phone], [place] [facility] 09/14/2024 13:53:22 Are You Blind Or Do You Have Difficulty Seeing? No Information not available 09/14/2024 Are You Deaf Or Do You Have Serious Difficulty Hearing? No Information not available 09/14/2024 When Did You Quit Smoking? 1-5yearssinc elastcigaret te Information not available 09/14/2024 What Was The Date Of Your Most Recent Tobacco Screening? 09/14/2024 Information not available 09/14/2024 What Is Your Current Pack Years? 10-19packyea rs Information not available 09/14/2024 How Much Tobacco Do You Smoke? No Information not available 09/14/2024 Has Tobacco Cessation Counseling Been Provided? Yes Information not available 09/14/2024 On What Date Was Tobacco Cessation Counseling Provided? 09/14/2024 Information not available 09/14/2024 How Many Years Have You Smoked Tobacco? 25 Information not available 09/14/2024 Do You Have Difficulty Walking Or Climbing Stairs? No Information not available 09/14/2024 Are You Currently In School? No Information not available 09/14/2024 Sex: Unknown Functional Status Question Answer Note LastModified by Organizat ion Details LastModified Time Do you use any illicit or recreational drugs? No Information not available 09/14/2024 Do you or have you ever used any other forms of tobacco or nicotine? No Information not available 09/14/2024 What is your level of alcohol consumption? None Information not available 09/14/2024 Are you currently employed? No Information not available 09/14/2024 Do you have transportation difficulties? No Information not available 09/14/2024 Are you able to walk independently without assistance or assistive devices? YESWOREST Information not available 09/14/2024 Do you have difficulty doing errands alone? No Information not available 09/14/2024 Are you able to care for yourself independently? Yes Information not available 09/14/2024 Do you have difficulty dressing, bathing, grooming, or toileting? No Information not available 09/14/2024 Do you or have you ever used any nicotine-free cigarettes, vape, or chewing tobacco? No Information not available 09/14/2024 Mental Status Question Answer Note LastModified by Organization D etails LastModified Time Do you have difficulty concentrating, remembering or making decisions? No Information no t available 09/14/2024 Family History Nothing Reported. Medical History Condition Response Anxiety/Depression Y Rheumatoid Arthritis Y Arthritis Y Osteoporosis Y Gynecological HistoryNo gynecological history recorded. Obstetrics History GPAL:G 0 P 0 0 0 0 Past Encounters Encounter ID Performer Location Encounter Start Date Encounter Closed Date Diagnosis/Indication Diagnosis SNOMED-CT Code Diagnosis ICD10 Code Diagnosis IMO Codes Diagnosis Note [id number] Dominick Bains MD Main Office [address] [place] [phone] 09/14/2024 13:19:11 09/15/2024 11:35:02 Neck pain 81664575 M54.2 Cervical radiculopathy 42262437 M54.12 Health Concerns Section Related Observation LastModified by Organization Detai ls LastModified Time None Recorded Concern Status LastModified by Organization Details LastModified Time None Recorded Advance Directives Directive None Recorded Payers Insurance Date Sequence Insurance Name Policy Number Policy Huynh Covered Member ID Huynh Member ID Guarantor Name 09/15/2024 1 MEDICARE B-[place]: NGS Vannessa Mariee [id number] Vannessa Mariee 12/19/2024 2 [place] [facility] [address] Vannessa Mariee [id number] Vannessa Mariee 09/14/2024 2 MEDICARE B-[place]: NGS Vannessa Landa [id number] Vannessa Mariee Notes Date Note Type Note Provider Name and Address Organization Details Recorded Time 09/14/2024 text/html This is a 54-year-old lady who was referred to me for consultation regarding neck pain and right upper extremity radicular type pain. She also has some weakness in the right hand. This has been going on for the last several years. She has tried physical therapy, pain management intervention as well as anti-inflammatory medications. 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 Dominick Bains MD [address] [place] [address], [phone], [place] [facility] 09/14/2024 14:05:32 OBGyn Episode No OBEpisode recorded.
== END 2025-06-16 16:42 | disposition home or self-care (01) ==
PROVIDERS: PCP Student in an Organized Health Care Education/Training Program; Visit Provider Student in an Organized Health Care Education/Training Program
DX: M87.24 Osteonecrosis due to previous trauma, hand and fingers (principal); Z59.41 Food insecurity; Q78.2 Osteopetrosis; D83.9 Common variable immunodeficiency, unspecified; M06.9 Rheumatoid arthritis, unspecified

== ENCOUNTER → 2025-06-16 15:43 | Outpatient (BNVA) | payer MEDICARE, MEDICAID, SELFPAY | PROVIDERS: PCP Student in an Organized Health Care Education/Training Program; Visit Provider Student in an Organized Health Care Education/Training Program | DX: M81.0 Age-related osteoporosis without current pathological fracture (principal); Q78.2 Osteopetrosis; D83.9 Common variable immunodeficiency, unspecified; Z59.41 Food insecurity; M87.24 Osteonecrosis due to previous trauma, hand and fingers; M06.09 Rheumatoid arthritis without rheumatoid factor, multiple sites; Z74.1 Need for assistance with personal care | CPT/HCPCS: 99212 ==